=== PATIENT | female | born 1965 | race African-American/Black ===

== ENCOUNTER 2022-02-22 19:42 | Emergency (ER) | payer MEDICARE, SELFPAY ==
[2022-02-22] VITALS (7 sets, daily range): BP systolic 133–180; BP diastolic 66–90; PULSE 85–105; RESP 16–19; TEMP 36.4; O2SAT 97–100
--- NOTE | ~2022-02-22 | XR_ITS ---
EXAMINATION: XR chest 2V DATE: 02/22/2022 20:06 INDICATION: Chest pain, shortness of breath and bilateral upper extremity edema TECHNIQUE: PA and lateral views of the chest were obtained. COMPARISON: Chest radiograph dated 05/10/2014 FINDINGS: The lungs remain clear with no focal airspace opacities, pulmonary edema, pleural effusion or pneumot horax. The cardiomediastinal silhouette is normal. Mild thoracic and moderate upper lumbar spondylosi s. Cholecystectomy clips in right upper quadrant. IMPRESSION: 1. No acute cardiopulmonary disease. Reviewed, dictated and finalized at location A.
--- NOTE | 2022-02-22 19:46 | ECG_ITS ---
Measurements Intervals [place] Rate: 103 P: 42 WV: 172 QRS: 14 QRSD: 76 T: 0 QT: 333 QTc: 436 Interpretive Statements SINUS TACHYCARDIA NONSPECIFIC T-WAVE ABNORMALITY NO PREVIOUS ECG AVAILABLE FOR COMPARISON Electronically Signed On 02-23-2022 7:19:12 CDT by Froy Osorio M.D.
[2022-02-22 20:23] LABS: Basophils Percent Auto 0.3 % (0.2-1.2); Eosinophils Absolute Auto 0.1 K/mm3 (0-0.3); Eosinophils Percent Auto 1.6 % (0-4.4); Hematocrit 39.2 % (37.0-47.0); Hemoglobin 12.6 g/dL (12.0-15.0); Immature Granulocyte Absolute 0.02 K/mm3 (0.00-0.031); Immature Granulocyte Percent A 0.3 % (0-0.5); Lymphocytes Absolute Auto 2.09 K/mm3 (0.9-3.2); Lymphocytes Percent Auto 30.6 % (18.3-44.2); Mean Corpuscular HGB Conc 32.1 g/dl (32-36); Mean Corpuscular Volume 87.1 fl (80-100); Mean Platelet Volume 11.1 fl (7.4-10.4); Monocytes Absolute Auto 0.4 K/mm3 (0.1-0.6); Neutrophils Absolute Auto 4.2 K/mm3 (1.3-6.7); Neutrophils Percent Auto 61.2 % (45.5-73.1); Platelet Count Result 250 k/mm3 (150-375); White Blood Count 6.8 K/mm3 (4.5-10.0)
[2022-02-22 20:36] LABS: Alanine Aminotransferase 23 U/L (6-35); Albumin Level 4.1 g/dL (3.5-5.1); Alkaline Phosphatase 134 U/L (38-126); Anion Gap 12 mmol/L (8-16); Aspartate Amino Transferase 20 U/L (14-36); Bilirubin,Total 0.3 mg/dL (0.2-1.3); Blood Urea Nitrogen 17 mg/dL (7-17); Calcium 8.4 mg/dL (8.4-10.2); Carbon Dioxide 23 mmol/L (22-30); Chloride 105 mmol/L (98-107); Estimated CRCL calculation 65 ml/min; Estimated Glomerular Filt Rate > 60; Glucose 346 mg/dL (65-110); Potassium 3.8 mmol/L (3.4-5.0); Sodium 140 mmol/L (137-145)
[2022-02-22 21:10] LABS: Troponin I < 0.012 ng/mL (0.000-0.034)
--- NOTE | 2022-02-22 21:16 | ED.GENADULT ---
HPI - General Adult General Chief complaint: Shortness of Breath/Dyspnea Stated complaint: SOB, chest pain Time Seen by Provider: 02/22/22 20:37 History of Present Illness HPI narrative: this is a 56-year-old female presenting to ED with shortness of breath x2 months. Patient says she has been having progressively worse dyspnea on exertion. Patient walks several flights of stairs each day. typically she can do this without becoming winded but has been unable to for the last 2 months. Patient is also describing a sharp chest pain that is initially on the right but also extends to the left chest as well as the right flank. The pain comes and goes. She says this is similar to when she had a minor heart attack in 2018. Pain is exacerbated by moving. It is improved by lying down. Patient had 1 episode of vomiting several days ago. She has also been having non-bloody diarrhea. She denies fever or chills. She denies productive cough. She denies any sick contacts at home. Denies urinary symptoms. Related Data Allergies Allergy/AdvReac Type Severity Reaction Status Date / Time shrimp Allergy Anaphylaxis Verified 02/22/22 19:45 Review of Systems Review of Systems: CONSTITUTIONAL: Denies night sweats. EYES: No eye pain ENT: Denies rhinorrhea CARDIOVASCULAR: Denies palpitations RESPIRATORY: Denies hemoptysis GASTROINTESTINAL: Denies hematemesis GENITOURINARY: Denies hematuria. SKIN: Denies rash MUSCULOSKELETAL: Denies myalgia. NEUROLOGIC: Denies weakness. PSYCHIATRIC: Denies delusions PMFSH Past Medical History Medical History Diabetes Fibromyalgia HTN (hypertension) Social History Social History (Updated 02/22/22 @ 23:26 by Niraj Thomas MD) Social History: patient denies use of alcohol, cigarettes, or drugs. Exam Narrative: APPEARANCE: No apparent distress. She is polite and smiling during the interview Head atraumatic. EYES: PERRLA/EOMI, NOSE: Normal no drainage NECK: Supple, Trachea midline RESPIRATORY: CTAB, No increased work of breathing. CARDIOVASCULAR: S1S2 appreciated no peripheral edema, patient is has tenderness to palpation over the left chest wall and right rib cage. ABDOMINAL: Soft, nontender, nondistended, MUSCULOSKELETAl: No obvious deformities NEURO: Alert. Moving 4/4 extremities SKIN:: Warm, dry. Normal color PSYCHIATRIC: Normal affect Course Vital Signs Vital signs: Vital Signs Temperature 97.6 F 02/22/22 19:49 Pulse Rate 105 H 02/22/22 19:49 Respiratory Rate 16 02/22/22 19:49 Blood Pressure 133/87 02/22/22 19:49 Pulse Oximetry 100 02/22/22 19:49 Oxygen Delivery Room Air 02/22/22 19:49 Temperature 97.6 F 02/22/22 19:49 Pulse Rate 85 02/22/22 22:09 Respiratory Rate 17 02/22/22 22:09 Blood Pressure 148/72 H 02/22/22 22:09 Pulse Oximetry 97 02/22/22 22:09 Oxygen Delivery Room Air 02/22/22 20:54 Medical Decision Making MDM Narrative Medical decision making narrative: This is a 56-year-old female presenting ED with vague complaints of chest pain and dyspnea over 2 months chest pain workup including troponin, BNP and D-dimer have been ordered. EKG and chest x-ray have been ordered. EKG interpretation: Rhythm sinus tachycardia, Rate 103, [place] -[normal], [place] -[normal], QRS [narrow], QTC [normal], T waves -[negative for concerning inversions], ST Segments - [Negative for concerning elevations] Final interpretations: sinus tachycardia Patient's BNP D-dimer and troponin x2 were all negative. chest x-ray is negative. HEART Score for Major Cardiac Events from [email or web address] on 02/22/2022 All calculations should be rechecked by clinician prior to use RESULT SUMMARY: 3 points Low Score (0-3 points) Risk of MACE of 0.9-1.7%. INPUTS: History ?> 0 = Slightly suspicious EKG ?> 0 = Normal Age ?> 1 = 45-64 Risk factors ?> 2 = >= risk factors or history of athero
[2022-02-22 21:54] LABS: NT Pro B Type Natriuretic Pept 23 pg/mL (5-100)
[2022-02-22 21:59] LABS: D Dimer 0.26 ug/mL (<0.48)
[2022-02-22 22:19] LABS: SARS-CoV-2 RNA PCR Negative
[2022-02-22] MEDS: IBUPROFEN 400 MG TABLET 800 MG PO (22:32)
[2022-02-22] MEDS: ACETAMINOPHEN 500 MG TABLET 1000 MG PO (22:32)
[2022-02-22 23:16] LABS: Troponin I < 0.012 ng/mL (0.000-0.034)
== END 2022-02-22 23:59 | disposition home or self-care (01) ==
PROVIDERS: Emergency Provider Emergency Medicine
DX: R06.00 Dyspnea, unspecified (principal); E11.9 Type 2 diabetes mellitus without complications; I10 Essential (primary) hypertension; M79.7 Fibromyalgia; R00.0 Tachycardia, unspecified; R94.31 Abnormal electrocardiogram [ECG] [EKG]
CPT/HCPCS: 36415; 71046; 80053; 83880; 84484; 85025; 85380; 93005; 99284; A9270; C9803; U0003; U0005

== ENCOUNTER 2023-02-17 12:34 | Emergency (ER) | payer MEDICARE, SELFPAY ==
[2023-02-17] VITALS (36 sets, daily range): BP systolic 144–210; BP diastolic 80–114; PULSE 80–96; RESP 12–19; TEMP 35.9–36.6; O2SAT 90–100
--- NOTE | ~2023-02-17 | XR_ITS ---
EXAMINATION: XR chest 2V DATE: 02/17/2023 13:15 INDICATION: Chest pain. TECHNIQUE: Frontal and lateral views of the chest were obtained. COMPARISON: Chest 2 views 02/22/2022 FINDINGS: The chest demonstrates clear lungs without pneumonia, pleural effusion, or pneumothorax. Th e heart size is normal. IMPRESSION: 1. No acute cardiopulmonary disease. Reviewed, dictated and finalized at location A.
--- NOTE | ~2023-02-17 | CT_ITS ---
EXAMINATION: CT brain wo con DATE: 02/17/2023 19:07 INDICATION: dizziness . TECHNIQUE: Computed tomography (CT) of the head was performed without intravenous contrast. The mA wa s adjusted according to patient size. Iterative reconstruction technique was employed. The dose-lengt h product was 605.33 mGy-cm. COMPARISON: 03/08/2015. FINDINGS: No acute intracranial hemorrhage or extra-axial fluid collection. No hydrocephalus, mass, or herniation. No acute ischemic infarct. Unremarkable dural venous sinus attenuation. No acute osseous abnormality. The aerated spaces are clear. IMPRESSION: No acute intracranial process. Reviewed, dictated and finalized at location K.
--- NOTE | 2023-02-17 12:37 | ECG_ITS ---
Measurements Intervals [place] Rate: 91 P: 55 CO: 188 QRS: 31 QRSD: 76 T: 1 QT: 351 QTc: 433 Interpretive Statements SINUS RHYTHM POSSIBLE LEFT ATRIAL ENLARGEMENT CANNOT RULE OUT SEPTAL INFARCT, AGE INDETERMINATE BORDERLINE ST-T WAVE ABNORMALITY- ANTEROLAT/INF LEADS ABNORMAL ECG COMPARED TO ECG 02/22/2022 19:56:57 SINUS RHYTHM NOW PRESENT Electronically Signed On 02-17-2023 16:32:55 CDT by Brennan Daigle D.O.
[2023-02-17 12:59] LABS: Basophils Percent Auto 0.4 % (0.2-1.2); Eosinophils Absolute Auto 0.1 K/mm3 (0-0.3); Hematocrit 46.5 % (37.0-47.0); Hemoglobin 15.1 g/dL (12.0-15.0); Immature Granulocyte Absolute 0.03 K/mm3 (0.00-0.031); Immature Granulocyte Percent A 0.4 % (0-0.5); Lymphocytes Absolute Auto 2.26 K/mm3 (0.9-3.2); Lymphocytes Percent Auto 31.3 % (18.3-44.2); Mean Corpuscular HGB Conc 32.5 g/dl (32-36); Mean Corpuscular Volume 86.3 fl (80-100); Mean Platelet Volume 10.7 fl (7.4-10.4); Monocytes Absolute Auto 0.4 K/mm3 (0.1-0.6); Neutrophils Absolute Auto 4.4 K/mm3 (1.3-6.7); Neutrophils Percent Auto 60.9 % (45.5-73.1); Platelet Count Result 275 k/mm3 (150-375); Red Blood Count 5.39 M/mm3 (4.2-5.4); Red Cell Distribution Width 13.1 % (11.5-14.5); White Blood Count 7.2 K/mm3 (4.5-10.0)
[2023-02-17 13:10] LABS: INR 0.9; Prothrombin Time 12.1 Seconds (11.1-14.7)
[2023-02-17 13:11] LABS: Partial Thromboplastin Time 29.8 SECONDS (22.3-36.8)
[2023-02-17 13:13] LABS: Alanine Aminotransferase 34 U/L (6-35); Albumin Level 4.9 g/dL (3.5-5.1); Alkaline Phosphatase 116 U/L (38-126); Anion Gap 8 mmol/L (8-16); Aspartate Amino Transferase 25 U/L (14-36); Bilirubin,Total 0.6 mg/dL (0.2-1.3); Blood Urea Nitrogen 11 mg/dL (7-17); Calcium 9.7 mg/dL (8.4-10.2); Carbon Dioxide 29 mmol/L (22-30); Chloride 104 mmol/L (98-107); Estimated CRCL calculation 82 ml/min; Estimated Glomerular Filt Rate > 60; Glucose 162 mg/dL (65-110); Lipase 104 U/L (23-300); Potassium 3.8 mmol/L (3.4-5.0); Sodium 141 mmol/L (137-145)
[2023-02-17 13:24] LABS: Troponin I < 0.012 ng/mL (0.000-0.034)
[2023-02-17 15:44] LABS: Glucose Point of Care 155 mg/dl (65-105)
[2023-02-17 17:01] LABS: Troponin I < 0.012 ng/mL (0.000-0.034)
[2023-02-17] MEDS: SODIUM CHLORIDE 0.9% IV 1,000 ML 999 ML IV CONT (17:48)
[2023-02-17] MEDS: MECLIZINE HCL 25 MG TABLET PO (17:49)
[2023-02-17] MEDS: ONDANSETRON INJ 4 MG/2 ML VIAL IV PUSH (17:49)
[2023-02-17] MEDS: KETOROLAC 30 MG/ML VIAL (*BKC) IV PUSH (19:12)
[2023-02-17] MEDS: diazePAM INJ (*CRX) 10 MG/2 ML SYRINGE 5 MG IV PUSH (19:12)
[2023-02-17 19:17] LABS: Troponin I < 0.012 ng/mL (0.000-0.034)
--- NOTE | 2023-02-17 19:23 | ED.GENADULT ---
HPI - General Adult General Chief complaint: Chest Pain Stated complaint: DIZZINESS, CP Time Seen by Provider: 02/17/23 16:36 History of Present Illness HPI narrative: Patient is a 57-year-old female who presents ER with sudden onset dizziness. Began this morning. Has been constant. Spinning in nature. Associate with nausea and vomiting. No focal weakness or numbness in her arms or legs. Has not had this dizziness before. She reports the discomfort is a pressure just in her neck. No history of heart disease. No fevers chills or sweats. Has not found any alleviating factors for symptoms. Symptoms are worsened by turning her head and standing. Related Data Allergies Allergy/AdvReac Type Severity Reaction Status Date / Time metformin Allergy Nausea and Verified 02/17/23 12:35 Vomiting shrimp Allergy Anaphylaxis Verified 02/17/23 12:35 Review of Systems Review of Systems: All systems reviewed & are unremarkable except as noted in HPI and below Constitutional: Constitutional: Denies chills, Denies fatigue and Denies fever(s) Eyes: Eyes: Denies change in vision and Denies photophobia ENT: Reports dizziness, Denies nasal congestion and Denies sore throat Cardiovascular: Cardiovascular: Reports chest pain, Denies rapid heart rate and Reports radiating jaw, neck or arm pain Respiratory: Respiratory: Denies cough and Denies dyspnea Gastrointestinal: Gastrointestinal: Denies abdominal pain, Reports nausea and Reports vomiting Neurologic: Reports dizziness, Denies headache(s), Denies focal weakness and Denies numbness PMFSH Past Medical History Medical History Diabetes Fibromyalgia HTN (hypertension) Social History Social History (Updated 02/22/22 @ 23:26 by Niraj Thomas MD) Social History: patient denies use of alcohol, cigarettes, or drugs. Exam Narrative: GENERAL: Well-appearing, well-nourished, and in no acute distress. HEAD: Normocephalic, atraumatic. EYES: PERRL and right gaze nystagmus. ENT: Mucous membranes moist. Air-fluid levels behind right TM. CHEST: Clear to auscultation. No respiratory distress. HEART: Regular rate and rhythm. Normal peripheral pulses. ABDOMEN: Soft, nontender, nondistended. EXTREMITIES: Normal range of motion. No edema. SKIN: Warm, dry, no rash. NEURO: No slurred speech or facial droop. Normal strength in all extremities. Alert and oriented x3. PSYCH: Normal mood and affect. Course Course Emergency Course: Patient was very dizzy upon initial presentation. She received oral meclizine as well as IV fluid and IV Valium. She reports the dizziness is markedly improved. When she stands up and walks she still gets dizzy but not nearly to the same degree. She feels safe with discharge home with supportive medications for home. She has been informed of her lab and imaging results. Vital Signs Vital signs: Vital Signs Temperature 97.9 F 02/17/23 12:42 Pulse Rate 90 02/17/23 12:42 Respiratory Rate 16 02/17/23 12:42 Blood Pressure 181/85 H 02/17/23 12:42 Pulse Oximetry 100 02/17/23 12:42 Oxygen Delivery Room Air 02/17/23 12:42 Temperature 96.6 F L 02/17/23 15:57 Pulse Rate 88 02/17/23 19:15 Respiratory Rate 13 02/17/23 19:15 Blood Pressure 164/91 H 02/17/23 19:13 Pulse Oximetry 96 02/17/23 19:15 Oxygen Delivery Room Air 02/17/23 16:38 Medical Decision Making Vital Signs Vital Signs: Vital Signs Temperature 97.9 F 02/17/23 12:42 Pulse Rate 90 02/17/23 12:42 Respiratory Rate 16 02/17/23 12:42 Blood Pressure 181/85 H 02/17/23 12:42 Pulse Oximetry 100 02/17/23 12:42 Oxygen Delivery Room Air 02/17/23 12:42 Temperature 96.6 F L 02/17/23 15:57 Pulse Rate 88 02/17/23 19:15 Respiratory Rate 13 02/17/23 19:15 Blood Pressure 164/91 H 02/17/23 19:13 Pulse Oximetry 96 02/17/23 19:15 Oxygen Delivery Room Air 02/17/23 16:38
[2023-02-17 20:14] LABS: Appearance Urine Clear (Clear); Bilirubin Urine Negative (Negative); Blood Urine Negative (Negative); Color Urine Yellow (Yellow); Glucose Urine UA 3+ mg/dL (Negative); Ketones Urine 1+ mg/dL (Negative); Leukocyte Esterase Ur Negative LEU/UL (Negative); Nitrate Urine Negative (Negative); Protein Urine Negative (Negative); Urobilinogen Urine 0.2 mg/dL (<2.0); pH Urine 5.5 (5.0-9.0)
[2023-02-17 20:22] LABS: Specific Grav Ur 1.042 (1.001-1.035)
[2023-02-17 20:23] LABS: Add Urine Microscopic? YES
== END 2023-02-17 21:08 | disposition home or self-care (01) ==
PROVIDERS: Emergency Medicine; Emergency Provider Emergency Medicine; PCP Family Medicine
DX: R42 Dizziness and giddiness (principal); I10 Essential (primary) hypertension; E11.9 Type 2 diabetes mellitus without complications; M79.7 Fibromyalgia; R94.31 Abnormal electrocardiogram [ECG] [EKG]
CPT/HCPCS: 36415; 70450; 71046; 80053; 81001; 82948; 83690; 84484; 85025; 85610; 85730; 93005; 96361; 96374; 96375; 99284; A9270; J1885; J2405; J3360; J7030

== ENCOUNTER 2023-06-19 11:19 | Emergency (ER) | payer MEDICARE, SELFPAY ==
[2023-06-19] VITALS (16 sets, daily range): BP systolic 140–190; BP diastolic 67–98; PULSE 104–122; RESP 15–20; TEMP 36.7–36.8; O2SAT 91–98
--- NOTE | ~2023-06-19 | CT_ITS ---
EXAMINATION: CT abdomen pelvis w con DATE: 06/19/2023 14:31 INDICATION: Nausea, vomiting, and diarrhea. Upper abdominal pain. TECHNIQUE: Computed tomography (CT) of the abdomen and pelvis was performed with 100 mL Omnipaque 350 intravenous contrast. Automated exposure control and iterative reconstruction technique were employe d. The dose-length product was 523.95 mGy-cm. COMPARISON: CT abdomen and pelvis 07/07/2014 FINDINGS: The visualized portions of the lung bases demonstrate mild scarring in paraspinal right low er lobe. No pleural effusion. The heart size is normal. No pericardial effusion. There are cysts in t he liver measuring up to 2.3 cm. The spleen is normal. There are changes of cholecystectomy. The panc reas and adrenal glands are normal. There is cortical thinning of the kidneys. There is a 5 mm cyst i n left kidney. There is diverticulosis of the colon without evidence of diverticulitis. There are no dilated loops of bowel. The appendix is normal. There is an umbilical hernia containing fat. There ar e no pathologically enlarged lymph nodes. There is no free intraperitoneal fluid. There is mild thora cic and lumbar spondylosis. IMPRESSION: 1. Umbilical hernia containing fat. Reviewed, dictated and finalized at location A. [employer]
[2023-06-19 11:52] LABS: Glucose Point of Care 189 mg/dl (65-105)
[2023-06-19 11:56] LABS: Basophils Percent Auto 0.3 % (0.2-1.2); Eosinophils Percent Auto 0.3 % (0-4.4); Hematocrit 47.7 % (37.0-47.0); Hemoglobin 15.1 g/dL (12.0-15.0); Immature Granulocyte Absolute 0.05 K/mm3 (0.00-0.031); Immature Granulocyte Percent A 0.5 % (0-0.5); Lymphocytes Absolute Auto 0.59 K/mm3 (0.9-3.2); Lymphocytes Percent Auto 5.4 % (18.3-44.2); Mean Corpuscular HGB Conc 31.7 g/dl (32-36); Mean Corpuscular Volume 88.3 fl (80-100); Mean Platelet Volume 11.2 fl (7.4-10.4); Monocytes Absolute Auto 0.4 K/mm3 (0.1-0.6); Monocytes Percent Auto 3.4 % (2.6-8.5); Neutrophils Absolute Auto 9.8 K/mm3 (1.3-6.7); Neutrophils Percent Auto 90.1 % (45.5-73.1); Platelet Count Result 267 k/mm3 (150-375); White Blood Count 10.9 K/mm3 (4.5-10.0)
[2023-06-19 12:05] LABS: Alanine Aminotransferase 32 U/L (6-35); Albumin Level 4.9 g/dL (3.5-5.1); Alkaline Phosphatase 83 U/L (38-126); Anion Gap 17 mmol/L (8-16); Aspartate Amino Transferase 28 U/L (14-36); Bilirubin,Total 0.8 mg/dL (0.2-1.3); Blood Urea Nitrogen 18 mg/dL (7-17); Calcium 9.5 mg/dL (8.4-10.2); Carbon Dioxide 18 mmol/L (22-30); Chloride 104 mmol/L (98-107); Estimated CRCL calculation 93 ml/min; Estimated Glomerular Filt Rate > 60; Glucose 202 mg/dL (65-110); Lipase 75 U/L (23-300); Potassium 4.1 mmol/L (3.4-5.0); Sodium 139 mmol/L (137-145)
--- NOTE | 2023-06-19 14:02 | ED.NAVMDI ---
HPI - Nausea/Vomiting/Diarrhea General Chief complaint: Nausea/Vomiting/Diarrhea Stated complaint: N/V/D SINCE YESTERDAY Time Seen by Provider: 06/19/23 13:05 Source: patient Related Data Allergies Allergy/AdvReac Type Severity Reaction Status Date / Time metformin Allergy Nausea and Verified 02/17/23 12:35 Vomiting shrimp Allergy Anaphylaxis Verified 02/17/23 12:35 PMFSH Past Medical History Medical History Diabetes Fibromyalgia HTN (hypertension) Social History Social History (Updated 02/22/22 @ 23:26 by Niraj Thomas MD) Social History: patient denies use of alcohol, cigarettes, or drugs. Course Vital Signs Vital signs: Vital Signs Temperature 36.7 C 06/19/23 11:40 Pulse Rate 118 H 06/19/23 11:40 Respiratory Rate 20 06/19/23 11:40 Blood Pressure 150/82 H 06/19/23 11:40 Pulse Oximetry 97 06/19/23 11:40 Oxygen Delivery Room Air 06/19/23 11:40 Temperature 36.7 C 06/19/23 11:40 Pulse Rate 107 H 06/19/23 14:16 Respiratory Rate 19 06/19/23 14:16 Blood Pressure 181/77 H 06/19/23 14:16 Pulse Oximetry 95 06/19/23 14:16 Oxygen Delivery Room Air 06/19/23 11:40 MDM - Nausea/Vomiting/Diarrhea Lab Data 06/19/23 11:50 06/19/23 11:50 Labs: Lab Results 06/19/23 06/19/23 06/19/23 Range/Units 11:45 11:50 14:43 WBC 10.9 H (4.5-10.0) K/mm3 RBC 5.40 (4.2-5.4) M/mm3 Hgb 15.1 H (12.0-15.0) g/dL Hct 47.7 H (37.0-47.0) % MCV 88.3 (80-100) fl MCH 28.0 (26-34) pg MCHC 31.7 L (32-36) g/dl RDW 13.0 (11.5-14.5) % Plt Count 267 (150-375) k/mm3 MPV 11.2 H (7.4-10.4) fl Immature Gran % (Auto) 0.5 (0-0.5) % Neut % (Auto) 90.1 H (45.5-73.1) % Lymph % (Auto) 5.4 L (18.3-44.2) % [place] % (Auto) 3.4 (2.6-8.5) % Eos % (Auto) 0.3 (0-4.4) % Baso % (Auto) 0.3 (0.2-1.2) % Lymph # (Auto) 0.59 L (0.9-3.2) K/mm3 [place] # (Auto) 0.4 (0.1-0.6) K/mm3 Eos # (Auto) 0.0 (0-0.3) K/mm3 Baso # (Auto) 0.0 (0.0-0.1) K/mm3 Abs Immat Gran (auto) 0.05 H (0.00-0.031) K/mm3 Absolute Neuts (auto) 9.8 H (1.3-6.7) K/mm3 Absolute Nucleated RBC 0.0 (0.0-0.012) K/mm3 Nucleated RBC % 0.0 (0.0-0.2) % Sodium 139 (137-145) mmol/L Potassium 4.1 (3.4-5.0) mmol/L Chloride 104 (98-107) mmol/L Carbon Dioxide 18 L (22-30) mmol/L Anion Gap 17 H (8-16) mmol/L BUN 18 H (7-17) mg/dL Creatinine 0.60 L (0.7-1.0) mg/dL Estim Creat Clear Calc 93 ml/min Estimated GFR > 60 (59 - ) Glucose 202 H (65-110) mg/dL POC Capillary Glucose 189 H (65-105) mg/dl Calcium 9.5 (8.4-10.2) mg/dL Total Bilirubin 0.8 (0.2-1.3) mg/dL AST 28 (14-36) U/L ALT 32 (6-35) U/L Alkaline Phosphatase 83 (38-126) U/L Total Protein 9.0 H (6.3-8.2) g/dL Albumin 4.9 (3.5-5.1) g/dL Lipase 75 (23-300) U/L Urine Color Yellow (Yellow) Urine Appearance Clear (Clear) Urine pH 5.0 (5.0-9.0) Ur Specific [place] 1.048 H (1.001-1.035) Urine Protein 1+ H (Negative) mg/dL Urine Glucose (UA) 3+ H (Negative) mg/dL Urine Ketones 4+ H (Negative) mg/dL Ur Blood (Man) Negative (Negative) Urine Nitrate Negative (Negative) Urine Bilirubin Negative (Negative) Urine Urobilinogen 0.2 (<2.0) mg/dL Leukocyte Esterase Rfl Negative (Negative) MENDEZ/UL Urine RBC 0-2 (0-2) /hpf Urine WBC 0-5 /hpf Ur Squamous Epith Cells None seen (Few) /hpf Urine Bacteria None seen /hpf Urine Casts 0-2 Imaging Data Attestation: I personally reviewed and interpreted this imaging study as follows: Radiologist's impression: Impressions Abdomen/Pelvis CT 06/19/23 14:36 IMPRESSION: 1. Umbilical hernia containing fat. Critical Care Time Critical Care Time Critical Care Time: Yes Total Critical
[2023-06-19] MEDS: HYDROmorphone HCL INJ (*CRX) 1 MG/ML SYR 0.5 MG IV PUSH (14:40)
[2023-06-19] MEDS: ONDANSETRON INJ 4 MG/2 ML VIAL IV PUSH (14:40)
[2023-06-19] MEDS: SODIUM CHLORIDE 0.9% IV 1,000 ML 999 ML IV CONT (14:41)
[2023-06-19 14:59] LABS: Appearance Urine Clear (Clear); Bacteria Urine None Seen /hpf; Bilirubin Urine Negative (Negative); Blood Urine Negative (Negative); Color Urine Yellow (Yellow); Glucose Urine UA 3+ mg/dL (Negative); Ketones Urine 4+ mg/dL (Negative); Leukocyte Esterase Ur Negative LEU/UL (Negative); Nitrate Urine Negative (Negative); Non Pathogenic Casts 0-2; Protein Urine 1+ mg/dL (Negative); RBC Urine 0-2 /hpf (0-2); Squamous Epithelial Cell Urine None seen /hpf (Few); Urobilinogen Urine 0.2 mg/dL (<2.0); WBC Urine 0-5 /hpf
[2023-06-19 15:01] LABS: Add Urine Microscopic? YES; Specific Grav Ur 1.048 (1.001-1.035)
== END 2023-06-19 17:06 | disposition home or self-care (01) ==
PROVIDERS: Emergency Provider Emergency Medicine; PCP Family Medicine
DX: K42.9 Umbilical hernia without obstruction or gangrene (principal); R11.2 Nausea with vomiting, unspecified; R10.84 Generalized abdominal pain; I10 Essential (primary) hypertension; E11.9 Type 2 diabetes mellitus without complications; M79.7 Fibromyalgia
CPT/HCPCS: 36415; 74177; 80053; 81001; 82948; 83690; 85025; 96361; 96374; 96375; 99284; J1170; J2405; J7030; Q9967

== ENCOUNTER 2023-08-26 12:20 | Outpatient (CLI) | payer MEDICARE, SELFPAY ==
[2023-08-26 13:15] LABS: Anion Gap 9 mmol/L (8-16); Blood Urea Nitrogen 15 mg/dL (7-17); Calcium 9.4 mg/dL (8.4-10.2); Carbon Dioxide 27 mmol/L (22-30); Chloride 105 mmol/L (98-107); Estimated Glomerular Filt Rate > 60; Glucose 199 mg/dL (65-110); Potassium 3.6 mmol/L (3.4-5.0); Sodium 141 mmol/L (137-145)
== END 2023-08-26 12:21 | disposition home or self-care (01) ==
LOC: ANHSURGERY 12:23
PROVIDERS: Anesthesiology; PCP Emergency Medicine; Visit Provider Surgery
DX: E11.9 Type 2 diabetes mellitus without complications (principal)
CPT/HCPCS: 36415; 80048

== ENCOUNTER 2023-09-04 00:29 | Day surgery (SDC) | payer MEDICARE, SELFPAY ==
[2023-08-22 14:01] VITALS: BMI 30.7
--- NOTE | 2023-08-22 14:08 | PC.NURSE ---
Report to the Outpatient Waiting Room, entrance under the green pavilion located off [facility], at time 12:30 on date 09/04/23. Planned Procedure Time: 2:30. Time changes happen often and if your time is changed the preop area will call you the afternoon before. - You and your visitor will be asked to self-screen and do not enter if you have any COVID symptoms. - A mask is optional within the hospital at this time. Patients may have clear liquids (water, carbonated beverages, clear teas, apple juice) until 3 hours prior to surgery (11:30) with a maximum of 20 ounces. - No food from midnight until time of surgery Take the following medications with a SIP of water the morning of surgery: DULOXETINE DO NOT STOP ANY OF YOUR OTHER PRESCRIPTION MEDICATIONS PRIOR TO SURGERY ?EXCEPT THE FOLLOWING Medications to discontinue per physician: N/A Date to take last dose: N/A Please no make-up, nail swedish, hairspray, perfume, deodorant, or body powder the day of surgery. No jewelry (including any body piercings) or valuables the day of surgery, leave them at home. Please take a shower or bath the night before, or the morning of, surgery with an antibacterial soap. Wear comfortable, loose fitting clothing. - Jewelry must be removed prior to entering the operating room. Rings and piercings that are not removed may be cut off. - The hospital will not accept responsibility for valuables. - Please leave all valuables, including medications, at home the day of surgery. If you are going home after surgery, a licensed ems driver must drive you home. - NO public transportation without another adult if you receive anesthesia. - We recommend that an adult stay with you for 24 hours following discharge. - We also recommend that you do not drive, make important decision, drink alcoholic beverages, or take any drugs that were not prescribed by your health care provider for at least 24 hours after your discharge time. Follow any additional instructions given to you from your surgeon. If you or anyone in your household have experienced Covid symptoms in the past week, please notify your surgeon or the nurse liaison at the phone number below for possible testing. Telephone instructions given to PT - CYNDI CAGLE and asked if any additional questions and then verbalized understanding. Patient advised to call surgeon office or pre surgery nurse liaison [phone] if any additional questions.
--- NOTE | 2023-09-02 11:05 | PM.SD2 ---
Same Day Admit/Disch: HPI History of Present Illness Chief complaint: Umb Hernia 2cm Narrative: Cate Francois is a 58 year old female who has had an umbilical hernia for several years. Starting in April, the patient began noticing stabbing pain in the area of the umbilicus which would radiate to the left. This was pretty severe pain and would sometimes last 3-4 days. She also noticed some bloating and constipation. She went to the emergency room on 06/19/2023 with abdominal pain and bloating. She had a CT scan which showed an umbilical hernia containing fat. She was seen in the office and found to have a 2 cm umbilical hernia defect. After discussion, she is taken to surgery at this time for robotic laparoscopic umbilical hernia repair with mesh. She has a history of a stroke in 2016 with no residual defect. She also has a history of [id number] diabetes. She has a right upper quadrant scar from open cholecystectomy but otherwise no abdominal surgery previously. [facility] Past Medical History Medical History (Updated 09/04/23 @ 14:49 by Kanu Acosta MD) Diabetes Fibromyalgia HTN (hypertension) Stroke 2017 Surgical History Surgical History (Updated 09/02/23 @ 11:11 by Kanu Acosta MD) History of cholecystectomy Open cholecystectomy Family History Family History Other Cerebrovascular accident Diabetes mellitus Heart disease Hypertension Social History Social History Social History: patient denies use of alcohol, cigarettes, or drugs. Smoking status: Never smoker Alcohol intake: never Alcohol use details: socially Substance use: never Substance use type: does not use Living arrangements: with family Additional living arrangements comments: DAUGHTER Occupation/Education: other Additional occupation/education comments: disabled Spiritual care concerns: Yes (NO BLOOD PRODUCTS) Same Day Admit/Disch: Med Pre-admit Medications Home Medications Medication Instructions Recorded Confirmed Type dicyclomine 20 mg tablet 20 mg PO QID PRN abdominal pain 06/30/23 09/04/23 History dulaglutide 4.5 mg/0.5 mL 4.5 mg subcut WEEKLY 08/22/23 09/04/23 [facility] duloxetine 20 mg capsule,delayed 20 mg PO DAILY 08/22/23 09/04/23 History release sprinkle empagliflozin 25 mg tablet 25 mg PO DAILY 08/22/23 09/04/23 History (Jardiance) losartan 50 mg-hydrochlorothiazide 1 tablet PO DAILY 08/22/23 09/04/23 History 12.5 mg tablet ibuprofen 600 mg tablet 600 mg PO Q6H PRN pain #14 tabs 09/04/23 Rx oxycodone-acetaminophen 5 mg-325 1 - 2 tablet PO Q6H PRN pain #20 09/04/23 Rx mg tablet (Percocet) tabs Review of Systems Review of Systems All systems reviewed & are unremarkable except as noted in HPI and below (HPI) Exam Const: General: comfortable, no acute distress, alert and awake HENMT: Head: normocephalic and atraumatic Mouth: Yes Normal oral and palatal mucosa present Eyes: Conjunctivae: conjunctivae normal Pupils: Equal, round and reactive pupils present EOM: EOMs intact bilaterally Neck: Neck: normal visual inspection, no lymphadenopathy and nontender Resp: Effort & Inspection: normal respiratory effort Auscultation: clear to auscultation bilaterally Cardio: Rate: regular rate Rhythm: regular rhythm Heart sounds: no gallops, no murmurs and no rubs GI: Inspection: non-distended, scar (Right upper quadrant), visible herniation (Umbilical) and other (Diastasis linea alba) GI Palp: Yes Soft to palpation, No Tenderness to palpation present (GI), No Hepatomegaly present, No Splenomegaly present and Yes Hernia present umbilical < 3 cm (Only palpable with standing, bulges with cough) Auscultation: normal bowel sounds Skin: Lesions: no lesions Rashes: no rashes Neuro: General: no focal motor deficits and CN
[2023-09-04] VITALS (12 sets, daily range): BP systolic 119–161; BP diastolic 58–87; PULSE 76–91; RESP 12–18; TEMP 36.1–36.3; O2SAT 93–100; BMI 31.1
[2023-09-04 10:50] LABS: Glucose Point of Care 145 mg/dl (65-105)
[2023-09-04] MEDS: KETOROLAC 15 MG/ML VIAL (*BKC) IV PUSH (11:10)
[2023-09-04] MEDS: LACTATED RINGERS 1,000 ML 30 ML IV CONT ×2 (11:10→14:15)
[2023-09-04] MEDS: ACETAMINOPHEN 500 MG TABLET 1000 MG PO (11:10)
--- NOTE | 2023-09-04 11:29 | WPDHPUPDATE1 ---
History and Physical Update Update Date/Time: 09/04/23 11:29 History and Physical has been reviewed, including an updated exam of the patient. There are NO changes in the patient's condition. Risks, benefits, and alternatives have been discussed and questions answered. Patient agrees to proceed with procedure.
--- NOTE | 2023-09-04 11:35 | WPDANESEPPF ---
Anes - Initial Pre Proc Eval Procedure: Operation Date: 09/04/23 12:00 Proposed Procedures p Robotic Laparoscopic Umbilical Hernia Repair with Mesh - Kanu Acosta MD Date/Time: 09/04/23 11:35 Surgeon: Kanu Acosta MD Pre Op Diagnosis: Umb Hernia 2cm Patient Data Age: 58 Gender: F Height: 1.65 m Weight: 83.9 kg Last Vital Signs Temp 97 F L 09/04/23 11:25 Pulse 83 09/04/23 11:25 Resp 16 09/04/23 11:25 BP 141/80 H 09/04/23 11:25 Pulse Ox 100 09/04/23 11:25 O2 Del Method Room Air 09/04/23 11:25 Allergies Allergy/AdvReac Type Severity Reaction Status Date / Time Fish Containing Products Allergy Anaphylaxis Verified 09/04/23 11:24 metformin Allergy Nausea and Verified 09/04/23 11:24 Vomiting shrimp Allergy Anaphylaxis Verified 09/04/23 11:24 Home Medications Medication Instructions Recorded Confirmed Type dicyclomine 20 mg tablet 20 mg PO QID PRN abdominal pain 06/30/23 09/04/23 History dulaglutide 4.5 mg/0.5 mL 4.5 mg subcut WEEKLY 08/22/23 09/04/23 History subcutaneous pen injector (Trulicity) duloxetine 20 mg capsule,delayed 20 mg PO DAILY 08/22/23 09/04/23 History release sprinkle empagliflozin 25 mg tablet 25 mg PO DAILY 08/22/23 09/04/23 History (Jardiance) losartan 50 mg-hydrochlorothiazide 1 tablet PO DAILY 08/22/23 09/04/23 History 12.5 mg tablet Laboratory Tests 09/04/23 10:32 POC Capillary Glucose 145 H mg/dl (65-105) Patient hx anesthesia problems: none Family hx anesthesia problems: none Results Review: All pre-operative results and documents have been reviewed as part of the pre-operative evaluation. [facility] Past Medical History Medical History Diabetes Fibromyalgia HTN (hypertension) Stroke 2017 Surgical History Surgical History (Updated 09/02/23 @ 11:11 by Kanu Acosta MD) History of cholecystectomy Open cholecystectomy Family History Family History Other Cerebrovascular accident Diabetes mellitus Heart disease Hypertension Social History Social History Social History: patient denies use of alcohol, cigarettes, or drugs. Smoking status: Never smoker Alcohol intake: never Alcohol use details: socially Substance use: never Substance use type: does not use Living arrangements: with family Additional living arrangements comments: DAUGHTER Occupation/Education: other Additional occupation/education comments: disabled Spiritual care concerns: Yes (NO BLOOD PRODUCTS) Anes - Eval Final PreProcedure Day of Procedure 09/04/23 11:35 Patient weight: obese Heart: regular rate and rhythm Lungs: clear to auscultation Airway: Mallampati scale class II Neurological: alert and oriented Last oral intake: >/= 8 hours ASA classification: III Emergent: no Anesthetic plan: proceed Anesthesia type and monitoring: general GIVS and standard monitoring Results Review: All pre-operative results and documents have been reviewed as part of the pre-operative evaluation. Informed Consent: The patient's anesthetic plan and its attendant risks and benefits were discussed with the patient/family/POA. Questions were solicited and answers provided to the satisfaction of the patient/family/POA.
[2023-09-04] MEDS: SCOPOLAMINE 1 MG PATCH 1 PATCH TRANSDERM (11:51)
[2023-09-04] MEDS: ceFAZolin 2 GM/D5W 50 ML 2 GM/50 ML BAG IVPB (12:07)
[2023-09-04] MEDS: BUPIVACAINE/EPINEPHRINE 0.5% 10 ML VIAL 30 ML INFILTRATE (13:18)
--- NOTE | 2023-09-04 14:14 | W.PM.PROC2 ---
Procedure Note - Detailed Date of Procedure 09/04/23 Pre-op Diagnosis Umb Hernia 2cm Post-op Diagnosis Other (Umbilical hernia with 3 cm defect) Procedure Performed Robotic laparoscopic repair 3 cm umbilical hernia with mesh Surgeon Kanu Acosta MD Delivery Crew Member Darin LEACH Anesthesia General and Local Indications Patient has had periumbilical pain for several months. Although it was not easily palpable, she was found on CT scan to have an umbilical hernia. She is taken to surgery now for robotic laparoscopic repair with mesh. Findings She had 2 hernias in the umbilical area. The more cephalad hernia was a cm in diameter. There was a small fascial bridge between the 2 hernias. The larger defect was 2 cm in diameter making a total of 3 cm umbilical hernia. There was no bowel involvement. Description of Procedure The patient was taken to surgery and induced into general anesthesia. She was positioned so that her left slide was slightly elevated and the left arm was at the level of the table so that there was good access to the left flank for trocar placement. Prep and drape was carried out. Local was infiltrated just under the left costal margin. Incision was made in the varies needle was introduced. Insufflation was carried out until the abdomen was distended. We then switched out the varies needle and placed an applied Medical optical 5 mm trocar in the abdomen. Once this trocar and the camera were placed, the area of the umbilical hernia was reviewed. Under direct visualization, 2 robotic trocars were placed in the left flank but more caudal than the initial trocar. Finally the initial 5 mm optical trocar was switched out for another robotic 8 mm trocar. The robotic arms were then brought into the field and positioned appropriately. The camera was docked and targeted. The instrument arms were docked and the instruments placed in the vicinity of the umbilical hernia. The surgeon then broke scrub and went to the robotic console. Dissection of the umbilical hernia started with dissecting some of the fatty tissue associated with the falciform ligament and then proceeding inferiorly to reduce fatty tissue in each of the hernia defects described above. Care was taken not to injure the umbilical skin. Cautery was used for hemostasis. We then continued this dissection caudally taking the properitoneal fat in the midline down about half way to the pubis. We then looked again in the cephalad midline and dissected a bit more of the falciform ligament off the anterior abdominal wall. At this point, the 2 hernias were easily visualized and the repair could be again. An 0 V lock suture was introduced. This was used to close the 2 hernia defects in a cranial caudad direction securely closing both of the openings. The V lock was run back to the center of the hernia closure to secure the suture. A 10 x [address] hernia mesh was then rolled and placed in the abdomen. The 0 V lock suture was then passed through the middle of the mesh and the mesh was pushed up against the anterior abdominal wall with the long access of the mesh in the cephalad caudad direction. With the mesh fairly secure on the anterior abdominal wall, I used 2 0 V lock suture and started on the right lateral aspect of the mesh. A running suture was started and proceeded from the right midline of the mesh caudally to the longitudinal caudal midline. Similarly 3 other 2 0 V lock suture were placed suturing the mesh circumferentially to the anterior abdominal wall. The mesh was made secure and under adequate tension with the closure. There was extra suture on the 4th V lock and I used this to secure the lateral and central portion of the mesh to the anterior abdominal wall. All looked good. There was no evidence of bleeding or other complications. All of the needles that had been used in the repair and mesh placement were then retrieved. Sponge and needle counts were correct
[2023-09-04 14:32] LABS: Glucose Point of Care 172 mg/dl (65-105)
[2023-09-04] MEDS: fentaNYL CITRATE INJ (*CRX) 100 MCG/2 ML VIAL 25 MCG IV PUSH (14:54)
[2023-09-04] MEDS: ONDANSETRON INJ 4 MG/2 ML VIAL IV PUSH (16:11)
[2023-09-04] MEDS: oxyCODONE HCL (*CRX) 5 MG TAB IR PO (16:41)
== END 2023-09-04 17:25 | disposition home or self-care (01) ==
PROVIDERS: PCP Emergency Medicine; Visit Provider Surgery
PROC: (CPT 49593; principal; 2023-09-04 12:00)
DX: K42.9 Umbilical hernia without obstruction or gangrene (principal); E11.9 Type 2 diabetes mellitus without complications; I10 Essential (primary) hypertension; M79.7 Fibromyalgia; Z86.73 Personal history of transient ischemic attack (TIA), and cerebral infarction without residual deficits; Z79.84 Long term (current) use of oral hypoglycemic drugs; Z79.85 Long-term (current) use of injectable non-insulin antidiabetic drugs
CPT/HCPCS: 49593; S2900; 82948; A9270; C1781; J0690; J1100; J1170; J1885; J2250; J2405; J3010; J7120

== ENCOUNTER 2024-03-21 10:22 | Observation (INO) | payer MEDICARE, SELFPAY ==
[2024-03-21] VITALS (40 sets, daily range): BP systolic 133–166; BP diastolic 65–98; PULSE 79–94; RESP 13–24; TEMP 36.4–36.6; O2SAT 96–100; BMI 29.9
--- NOTE | ~2024-03-21 | NM_ITS ---
EXAMINATION: NM carol stress w perfusion DATE: 03/23/2024 12:03 CDT INDICATION: Chest pain TECHNIQUE: Rest images were obtained following intravenous administration of 9.9 mCi Tc99m tetrofosmi n (Myoview). The patient was infused intravenously with Lexiscan (regadenoson). Then, 33 mCi Tc99m te trofosmin (Myoview) was administered intravenously, and stress images were obtained. Data was reconst ructed into short axis and horizontal and vertical long axis SPECT images. Gated SPECT images were al so obtained. COMPARISON: None. FINDINGS: There is no definite reversible or fixed perfusion abnormality to suggest ischemia or infar ction. There is no segmental wall motion abnormality. Left ventricular ejection fraction measures 7 1%. IMPRESSION: 1. No definite ischemia or infarct. 2. Normal left ventricular ejection fraction measuring 71%. Reviewed, dictated and finalized at location B.
--- NOTE | ~2024-03-21 | XR_ITS ---
Clinical Indication: Chest pain PA and lateral views of the chest: Comparison: 02/17/2023 Findings: The lungs are clear, without evidence of focal consolidation or pleural effusion. Cardiome diastinal silhouette is within normal limits. Bones and soft tissues are unremarkable. Impression: Normal chest. Reviewed, dictated and finalized at location . Impression: Normal chest.
--- NOTE | ~2024-03-21 | US_ITS ---
EXAMINATION:US venous doppler LE BI INDICATION:Lower leg swelling TECHNIQUE: Multiple grayscale, color flow and Doppler images of the right and left lower extremity de ep venous systems were obtained and reviewed. COMPARISON:12/16/2014 FINDINGS: The common femoral, superficial femoral and popliteal veins demonstrate normal respiratory variation, augmentation and compressibility. Color flow is also seen within the posterior tibial, pe roneal, greater saphenous and profunda veins. IMPRESSION: 1: No lower extremity deep venous thrombosis. Reviewed, dictated and finalized at location B.
--- NOTE | ~2024-03-21 | CT_ITS ---
Clinical Indication: Shortness of breath CT Scan of the Chest with Contrast: Technique: Contiguous sections were acquired throughout the chest after intravenous administration of 100 cc of Omnipaque 350. Dose reduction technique was used on this scan by utilizing automated expos ure control and iterative reconstruction technique. The dose-length product (DLP) was 484.07 mGy-cm. Findings: There is no evidence of any significant mediastinal, hilar or axillary lymphadenopathy. There is no f illing defect in the pulmonary arterial tree to suggest pulmonary embolus. There is no evidence of ao rtic dissection or aneurysm. There is no evidence of pleural or pericardial effusion. The lungs are clear. No pulmonary nodules or infiltrates are noted. Images through the upper abdomen reveal no abnormalities. Impression: No evidence of pulmonary embolus, aortic dissection, or aortic aneurysm. Clear lungs. Reviewed, dictated and finalized at [facility]. Impression: No evidence of pulmonary embolus, aortic dissection, or aortic aneurysm. Clear lungs.
--- NOTE | 2024-03-21 10:25 | ECG_ITS ---
Test Date: 2024-03-21 10:46:39 Measurements Intervals [place] Rate: 86 P: 49 AK: 181 QRS: 15 QRSD: 84 T: -29 QT: 372 QTc: 447 Interpretive Statements SINUS RHYTHM POSSIBLE LEFT ATRIAL ENLARGEMENT LOW QRS VOLTAGE IN PRECORDIAL LEADS CONSIDER INFERIOR INFARCT, AGE INDETERMINATE BORDERLINE ST-T WAVE ABNORMALITY- ANTEROLAT/INF LEADS BASELINE ARTIFACT- I, II, AVR, AVL, AVF BORDERLINE ECG No previous ECG available for comparison Electronically Signed On 03-21-2024 11:19:39 CDT by Brennan Daigle D.O.
[2024-03-21 10:54] LABS: Basophils Percent Auto 0.4 % (0.2-1.2); Eosinophils Absolute Auto 0.1 K/mm3 (0-0.3); Eosinophils Percent Auto 1.3 % (0-4.4); Hematocrit 40.1 % (37.0-47.0); Hemoglobin 13.3 g/dL (12.0-15.0); Immature Granulocyte Absolute 0.02 K/mm3 (0.00-0.031); Immature Granulocyte Percent A 0.3 % (0-0.5); Lymphocytes Absolute Auto 2.28 K/mm3 (0.9-3.2); Lymphocytes Percent Auto 30.4 % (18.3-44.2); Mean Corpuscular HGB Conc 33.2 g/dl (32-36); Mean Corpuscular Hemoglobin 28.9 pg (26-34); Mean Corpuscular Volume 87.2 fl (80-100); Mean Platelet Volume 11.1 fl (7.4-10.4); Monocytes Absolute Auto 0.5 K/mm3 (0.1-0.6); Monocytes Percent Auto 6.3 % (2.6-8.5); Neutrophils Absolute Auto 4.6 K/mm3 (1.3-6.7); Neutrophils Percent Auto 61.3 % (45.5-73.1); Platelet Count Result 253 k/mm3 (150-375); Red Cell Distribution Width 13.3 % (11.5-14.5); White Blood Count 7.5 K/mm3 (4.5-10.0)
[2024-03-21 11:03] LABS: Alanine Aminotransferase 18 U/L (6-35); Albumin Level 4.2 g/dL (3.5-5.1); Alkaline Phosphatase 128 U/L (38-126); Anion Gap 10 mmol/L (4-12); Aspartate Amino Transferase 18 U/L (14-36); Bilirubin,Total 0.5 mg/dL (0.2-1.3); Blood Urea Nitrogen 18 mg/dL (7-17); Calcium 9.2 mg/dL (8.4-10.2); Carbon Dioxide 25 mmol/L (22-30); Chloride 104 mmol/L (98-107); Estimated CRCL calculation 71 ml/min; Estimated Glomerular Filt Rate > 60; Glucose 188 mg/dL (65-110); Lipase 111 U/L (23-300); Potassium 3.9 mmol/L (3.4-5.0); Sodium 139 mmol/L (137-145)
[2024-03-21 11:05] LABS: INR 0.9; Prothrombin Time 12.1 Seconds (11.1-14.7)
[2024-03-21 11:06] LABS: Partial Thromboplastin Time 28.6 Seconds (22.3-36.8)
[2024-03-21 11:15] LABS: Troponin I < 0.012 ng/mL (0.000-0.034)
--- NOTE | 2024-03-21 12:06 | ED.CHESTPAIN ---
HPI - Chest Pain General Chief Complaint: Chest Pain Stated Complaint: chest pain Time Seen by Provider: 03/21/24 12:05 Source: patient Mode of arrival: ambulatory Limitations: no limitations History of Present Illness HPI narrative: 58 years old female came to the ED complaining of chest pain for the last 2 weeks, gradually getting worse, mainly last night and this morning. Patient was not able to get out of bed because of the pain 10/10, worse with any exertion, nothing make it better. History of diabetes, hypertension on baby aspirin once a day when she remember. Her mother had history of heart attack, her brother had a sudden probably secondary to heart attack. Patient does not smoke or drink or use drugs. Related Data Home Medications Medication Instructions Recorded Confirmed dicyclomine 20 mg tablet 20 mg PO QID PRN abdominal pain 06/30/23 10/29/23 duloxetine 20 mg capsule,delayed 20 mg PO DAILY 08/22/23 10/29/23 release sprinkle empagliflozin 25 mg tablet 25 mg PO DAILY 08/22/23 10/29/23 (Jardiance) losartan 50 mg-hydrochlorothiazide 1 tablet PO DAILY 08/22/23 10/29/23 12.5 mg tablet tirzepatide 2.5 mg/0.5 mL 2.5 mg subcut WEEKLY 09/18/23 10/29/23 subcutaneous pen injector (Cait) Allergies Allergy/AdvReac Type Severity Reaction Status Date / Time Fish Containing Products Allergy Anaphylaxis Verified 03/21/24 12:14 metformin Allergy Nausea and Verified 03/21/24 12:14 Vomiting shrimp Allergy Anaphylaxis Verified 03/21/24 12:14 Review of Systems Review of Systems: All systems reviewed & are unremarkable except as noted in HPI and below PMFSH Past Medical History Medical History Diabetes Fibromyalgia HTN (hypertension) Stroke 2017 Surgical History Surgical History History of cholecystectomy Open cholecystectomy History of umbilical hernia repair Robotic laparoscopic repair 3 cm umbilical hernia with mesh 09/04/23 JESUS Family History Family History Other Cerebrovascular accident Diabetes mellitus Heart disease Hypertension Social History Social History Social History: patient denies use of alcohol, cigarettes, or drugs. Smoking status: Never smoker Alcohol intake: never Alcohol use details: socially Substance use: never Substance use type: does not use Living arrangements: with family Additional living arrangements comments: DAUGHTER Occupation/Education: other Additional occupation/education comments: disabled Spiritual care concerns: Yes (NO BLOOD PRODUCTS) Exam Narrative: General appearance: Well-developed, well-nourished Skin: Normal color Head: Normocephalic, nontraumatic Eyes: Clear conjunctiva ENT: Oropharynx normal, ears normal, nose normal Neck: Supple, nontender Chest and respiratory: Airway patent, no respiratory distress, no accessory muscle use severe tenderness left sternum with light palpation, no bruises or swelling or rash Heart: Regular rate/rhythm Abdomen: Soft, nontender, no organomegaly, quiet bowel sounds Vascular: Normal peripheral pulses, normal capillary refill. Musculoskeletal: Normal range of motion, nontender back Neurologic: Alert and oriented ?3, BOX BUILDER is normal as tested, no gross motor deficit Course Consultations Consultation #1: DR NEAL SWARTZ [facility] ON-CALL ACCEPTED CONSULT Date: 03/21/24 Time: 15:48 Vital Signs Vital signs: Vital Signs Temperature 36.6 C 03/21/24 10:28 Pu
[2024-03-21 14:12] LABS: Troponin I < 0.012 ng/mL (0.000-0.034)
--- NOTE | 2024-03-21 15:16 | ECG_ITS ---
Test Date: 2024-03-21 15:21:50 Measurements Intervals [place] Rate: 77 P: 34 NE: 185 QRS: 2 QRSD: 81 T: -22 QT: 371 QTc: 422 Interpretive Statements SINUS RHYTHM DELAYED PRECORDIAL R/S TRANSITION LOW QRS VOLTAGE IN PRECORDIAL LEADS BORDERLINE ST-T WAVE ABNORMALITY- ANTEROLAT/INF LEADS BASELINE ARTIFACT- I, II, AVR BORDERLINE ECG Compared to ECG 03/21/2024 10:46:39 NO SIGNIFICANT CHANGE Electronically Signed On 03-21-2024 20:07:49 CDT by Brennan Daigle D.O.
[2024-03-21] MEDS: ASPIRIN 81 MG CHEWABLE TABLET 324 MG PO (15:35)
--- NOTE | 2024-03-21 16:10 | PM.IMHP ---
H&P: HPI History of Present Illness Date/Time: 03/21/24 16:10 Chief Complaint: Chest pain. Narrative: This is a very pleasant 58-year-old female with hypertension, type 2 diabetes mellitus, and fibromyalgia who presented to the emergency department for evaluation of chest pain. The patient provides the following history. She reports intermittent chest pain for the last couple of weeks which was worse this morning. She has been having quite a bit of musculoskeletal pain which she attributes to her fibromyalgia the last several weeks. 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 The pain is difficult for her to describe but she is able to tell me that she has sharp stabbing pain in the anterior chest at times with inspiration. She has also been getting short of breath. Last week she was in [place] and the symptoms were present then as well but not prior to the flight. She denies lightheadedness, dizziness, syncope, near syncope, sweats, nausea, calf pain, and lower extremity edema. In the ED: Vital signs were stable on arrival. CMP and CBC were pretty unremarkable aside from a glucose of 188. Baseline troponin was less than 0.012. EKG showed sinus rhythm and borderline ST T-wave abnormalities Chest x-ray showed a normal chest. She was given aspirin 324 mg and is being admitted to the IMU in the setting for close monitoring and Cardiology consultation given her risk factors and family history for sudden presumed cardiac in her brother. Review of Systems Review of Systems: 12 systems were reviewed and are negative except for as per HPI. [facility] Past Medical History Medical History (Updated 03/21/24 @ 16:14 by Liz Armstrong PA-C) Fibromyalgia Hypertension Stroke Brain CT in January 2023 showed no evidence of prior infarct. Type 2 diabetes mellitus Surgical History Surgical History (Updated 03/21/24 @ 16:14 by Liz Armstrong PA-C) History of cholecystectomy Open cholecystectomy History of tubal ligation History of umbilical hernia repair Robotic laparoscopic repair 3 cm umbilical hernia with mesh 09/04/23 JESUS Family History Family History Other Cerebrovascular accident Diabetes mellitus Heart disease Hypertension Social History Social History (Updated 03/21/24 @ 23:51 by Liz Armstrong PA-C) Social History: Surrogate medical decision maker: Jagruti Powers, sibling. Code status: Full code. Smoking status: Never smoker Alcohol intake: current Substance use: never Substance use type: does not use Do You Feel Safe in your Home?: Yes Lack of Transportation: No Lack of Food: Never True Current Housing: I Have Housing Concerned About Future Housing: YES Difficulty Paying Gas/Electric Bills: No Difficulty Paying for Meds: No Currently Unemployed: No Education: High School Diploma/GED Difficulty w/ Childcare or Family Care: No Living arrangements: with family Occupation/Education: other Additional occupation/education comments: On disability. Spiritual care concerns: No Meds Home Medications and Allergies Home Medications Medication Instructions Recorded Confirmed Type duloxetine 20 mg capsule,delayed 60 mg PO DAILY 08/22/23 03/21/24 History release sprinkle empagliflozin 25 mg tablet 25 mg PO DAILY 08/22/23 03/21/24 History (Jardiance) losartan 50 mg-hydrochlorothiazide 1 tablet PO DAILY 08/22/23 03/21/24 History 12.5 mg tablet tirzepatide 2.5 mg/0.5 mL 2.5 mg subcut WEEKLY 09/18/23 03/21/24 History subcutaneous pen injector (Mounjaro) pregabalin 150 mg capsule 150 mg PO BID 03/21/24 03/21/24 History Allergies Allergy/AdvReac Type Severity Reaction Status Date / Time Fish Containing Products Allergy Anaphylaxis Verified
[2024-03-21 16:34] LABS: INR 0.9; Prothrombin Time 12.4 Seconds (11.1-14.7)
[2024-03-21 16:39] LABS: Troponin I < 0.012 ng/mL (0.000-0.034)
[2024-03-21 20:30] LABS: Glucose Point of Care 169 mg/dl (65-105)
[2024-03-21] MEDS: METOPROLOL TARTRATE TAB 25 MG, METOPROLOL TARTRATE TAB 12.5 MG 37.5 MG PO (21:21)
[2024-03-21] MEDS: polyethylene glycoL 3350 17 GM POWD.PACK PO (22:21)
[2024-03-22] VITALS (16 sets, daily range): BP systolic 126–155; BP diastolic 59–75; PULSE 70–89; RESP 16–20; TEMP 36.4–36.8; O2SAT 97–100
[2024-03-22 04:21] LABS: Anion Gap 8 mmol/L (4-12); Blood Urea Nitrogen 16 mg/dL (7-17); Calcium 9.2 mg/dL (8.4-10.2); Carbon Dioxide 27 mmol/L (22-30); Chloride 104 mmol/L (98-107); Cholesterol 107 mg/dL (0-200); Estimated CRCL calculation 79 ml/min; Estimated Glomerular Filt Rate > 60; Glucose 150 mg/dL (65-110); HDL Direct 43 mg/dL; Potassium 3.3 mmol/L (3.4-5.0); Sodium 139 mmol/L (137-145); Triglycerides 65 mg/dL (<150)
[2024-03-22 04:24] LABS: Hemoglobin A1C 7.2 % (<5.7)
[2024-03-22 04:32] LABS: LDL Cholesterol Direct 49 mg/dL
[2024-03-22 07:32] LABS: Glucose Point of Care 161 mg/dl (65-105)
[2024-03-22] MEDS: DULoxetine HCL 60 MG CAPSULE.DR PO (08:41)
[2024-03-22] MEDS: PREGABALIN (*CRX) 75 MG CAPSULE 150 MG PO ×2 (08:41→16:54)
[2024-03-22] MEDS: ACETAMINOPHEN 325 MG TABLET 650 MG PO ×2 (08:41→21:00)
[2024-03-22] MEDS: EMPAGLIFLOZIN 25 MG TABLET PO (08:41)
[2024-03-22] MEDS: METOPROLOL TARTRATE TAB 25 MG, METOPROLOL TARTRATE TAB 12.5 MG 37.5 MG PO ×2 (08:41→20:58)
[2024-03-22] MEDS: hydroCHLOROthiazide 12.5 MG CAPSULE PO (08:41)
[2024-03-22] MEDS: LOSARTAN POTASSIUM 50 MG TABLET PO (08:41)
[2024-03-22] MEDS: ASPIRIN 81 MG CHEWABLE TABLET PO (08:41)
[2024-03-22] MEDS: POTASSIUM CHLORIDE 20 MEQ ER TABLET 40 MEQ PO (09:19)
--- NOTE | 2024-03-22 09:34 | PM.CNCAR ---
Assessment and Plan Assessment and plan (1) Chest pain: Code(s): R07.9 - Chest pain, unspecified Status: Acute Plan Atypical chest pain with negative cardiac enzymes and no dynamic EKG changes Hypertension Diabetes mellitus type 2 Plan Stress test in a.m. Continue losartan and hydrochlorothiazide Aspirin 81 mg daily History of Present Illness History of Present Illness Consult date/time: 03/22/24 09:34 Reason For Visit: Chest Pain Narrative: 58-year-old female patient presents to the hospital with chest pain. Chest pain was right-sided there is into right shoulder right arm. It has been present for last 2 weeks. Pain would last for hours to a full day. There was no precipitating or relieving factors. Review of Systems Review of Systems: All systems reviewed & are unremarkable except as noted in HPI and below PMFSH Past Medical History Medical History (Updated 03/21/24 @ 16:14 by Liz Armstrong PA-C) Fibromyalgia Hypertension Stroke Brain CT in January 2023 showed no evidence of prior infarct. Type 2 diabetes mellitus Surgical History Surgical History (Updated 03/21/24 @ 16:14 by Liz Armstrong PA-C) History of cholecystectomy Open cholecystectomy History of tubal ligation History of umbilical hernia repair Robotic laparoscopic repair 3 cm umbilical hernia with mesh 09/04/23 JESUS Family History Family History Other Cerebrovascular accident Diabetes mellitus Heart disease Hypertension Social History Social History (Updated 03/21/24 @ 23:51 by Liz Armstrong PA-C) Social History: Surrogate medical decision maker: Jagrutira Powers, sibling. Code status: Full code. Smoking status: Never smoker Alcohol intake: current Substance use: never Substance use type: does not use Do You Feel Safe in your Home?: Yes Lack of Transportation: No Lack of Food: Never True Current Housing: I Have Housing Concerned About Future Housing: YES Difficulty Paying Gas/Electric Bills: No Difficulty Paying for Meds: No Currently Unemployed: No Education: High School Diploma/GED Difficulty w/ Childcare or Family Care: No Living arrangements: with family Occupation/Education: other Additional occupation/education comments: On disability. Spiritual care concerns: No Meds Home Medications and Allergies Home Medications Medication Instructions Recorded Confirmed Type duloxetine 20 mg capsule,delayed 60 mg PO DAILY 08/22/23 03/21/24 History release sprinkle empagliflozin 25 mg tablet 25 mg PO DAILY 08/22/23 03/21/24 History (Jardiance) losartan 50 mg-hydrochlorothiazide 1 tablet PO DAILY 08/22/23 03/21/24 History 12.5 mg tablet tirzepatide 2.5 mg/0.5 mL 2.5 mg subcut WEEKLY 09/18/23 03/21/24 History subcutaneous pen injector (Cait) pregabalin 150 mg capsule 150 mg PO BID 03/21/24 03/21/24 History Allergies Allergy/AdvReac Type Severity Reaction Status Date / Time Fish Containing Products Allergy Anaphylaxis Verified 03/21/24 12:14 metformin Allergy Nausea and Verified 03/21/24 12:14 Vomiting shrimp Allergy Anaphylaxis Verified 03/21/24 12:14 Vital Signs Vital Signs - 24 hr 03/21/24 10:28 03/21/24 12:15 03/21/24 12:16 Temperature 36.6 C Pulse Rate 89 86 Respiratory Rate 18 Blood Pressure 149/71 H Pulse Oximetry 99 100 Oxygen Delivery Room Air Room Air 03/21/24 13:17 03/21/24 15:37 03/21/24 11:29 Temperature Pulse Rate 86 87 88 Respiratory Rate 15 18 23 H Blood Pressure 146/65 H 149/98 H Pulse Oximetry 100 100 100 Oxygen Delivery 03/21/24 11:30 03/21/24 11:35 03/21/24 11:45 Temperature Pulse Rate 87 87 87 Respiratory Rate 24 H 23 H 24 H Blood Pressure 166/82 H Pulse Oximetry 100 100 100 Oxygen Delivery 03/21/24 11:46 03/21/24 12:12 03/21/24 12:15 Temperature Pulse Rate 85 86 85 R
[2024-03-22 11:49] LABS: Glucose Point of Care 130 mg/dl (65-105)
--- NOTE | 2024-03-22 11:54 | PM.IMPN ---
Progress Note: A&P Assessment and Plan (1) Chest pain: Code(s): R07.9 - Chest pain, unspecified Status: Acute Assessment and Plan: Cardiology consult order. Patient scheduled for stress test in the morning. (2) Type 2 diabetes mellitus: Code(s): E11.9 - Type 2 diabetes mellitus without complications Status: Acute Assessment and Plan: Stable on current medications, will continue current treatment. (3) Hypertension: Code(s): I10 - Essential (primary) hypertension Status: Acute Assessment and Plan: Stable on current medications, will continue current treatment. (4) Fibromyalgia: Code(s): M79.7 - Fibromyalgia Status: Acute Assessment and Plan: Stable on current medications, will continue current. Plan The patient presented to the emergency department for evaluation of intermittent chest pain over the past 2 weeks as detailed in HPI. Labs, imaging, EKG, and all reports were personally reviewed. Initial troponin was normal however her EKG did show some nonspecific ST segment changes. She has a reproducible pain on palpation of the chest wall and this is likely musculoskeletal in etiology however given her risk factors and family history she would benefit from a stress test, possibly as an outpatient. She did recently travel and describes intermittent pleuritic pain shortness a breath thus chest CTA has been ordered to rule out PE which seems a bit less likely. Troponins will be trended. Cardiology has been consulted for their input. Blood pressures are reasonable and will be monitored. Initiate sliding scale insulin, Accu-Cheks, and hypoglycemic protocol. Her home medications will be reviewed and resumed as appropriate. Findings and treatment plan were discussed with the patient. Questions were solicited and answered to satisfaction. The patient's medical management will be taken over by the hospitalist team in a.m. Subjective Date/time seen: 03/22/24 11:54 Interval history: Patient was seen during the morning rounds today. Patient is feeling better. No shortness of breath or chest pain. Mood stable. Review of Systems Review of Systems: 12 systems were reviewed and are negative except for as per HPI. Exam Narrative: General: Well-developed, nontoxic-appearing female sitting up in bed in no distress. Weight: 81.6 kg. BMI: 29.9. HEENT: PERRL, EOMI. Sclera anicteric. Oral mucosa moist. Oropharynx clear. Neck: Supple. Respiratory: Lungs are clear to auscultation bilaterally. Cardiovascular: Regular rate and rhythm with S1-S2. Chest: Reproducible tenderness to palpation over the chest wall, more so on the left. Gastrointestinal: Abdomen is soft, nontender, and nondistended with positive bowel sounds. Skin: Warm and dry. No rash or lesions on limited exam. Extremities: No cyanosis, clubbing, or edema. Radial and pedal pulses intact. Neurological: Alert. Cranial nerves 2-12 are grossly intact. No gross focal deficits to casual conversation. Psychiatric: Pleasant and cooperative with normal mood and affect. Judgment and insight intact. Objective Data Vital Signs Vital Signs: Vital Signs - 24 hr 03/21/24 12:15 03/21/24 12:16 03/21/24 13:17 Temperature Pulse Rate 86 86 Respiratory Rate 15 Blood Pressure 146/65 H Pulse Oximetry 100 100 Oxygen Delivery Room Air 03/21/24 15:37 03/21/24 12:12 03/21/24 12:15 Temperature Pulse Rate 87 86 85 Respiratory Rate 18 21 H 20 Blood Pressure 149/98 H Pulse Oximetry 100 100 100 Oxygen Delivery 03/21/24 12:16 03/21/24 12:30 03/21/24 12:31 Temperature Pulse Rate 83 86 89 Respiratory Rate 21 H 22 H 22 H Blood Pressure 150/72 H 142/68 H Pulse Oximetry 100 100 100 Oxygen Delivery 03/21/24 12:45 03/21/24 13:02 03/21/24 13:15 Temperature Pulse Rate 86 88 86 Respiratory Rate 21 H 18 18 Blood Pressure Pulse Oximetry 100 Oxygen Delivery
[2024-03-22 16:29] LABS: Glucose Point of Care 159 mg/dl (65-105)
[2024-03-22 21:03] LABS: Glucose Point of Care 207 mg/dl (65-105)
[2024-03-22] MEDS: INSULIN ASPART (*BKC) 100 UNITS/ML SUB-Q (21:11)
[2024-03-22] MEDS: polyethylene glycoL 3350 17 GM POWD.PACK PO (23:30)
[2024-03-23] VITALS (10 sets, daily range): BP systolic 132–143; BP diastolic 63–72; PULSE 75–88; RESP 14–20; TEMP 36.4–36.6; O2SAT 96–100
--- NOTE | 2024-03-23 | EST_ITS ---
Patient Info Name: Cate Francois Age: 58 years : 1965 Gender: Female Ht: 65 in Wt: 186 lbs BSA: 2.00 m2 HR: 78 bpm BP: 134 / 77 mmHg Exam Date: 03/23/2024 10:31 AM Exam Location: Echo Lab Patient Status: Inpatient Admit Date: 03/21/2024 Staff Ordering Physician: Patrick Stark MD Attending Provider: Miguel A Macias MD Exercise Technologist: Carito Cedeño, CT Nurse: Nu Devries APN Exam Type: CA stress carol w NM Study Info A regadenoson stress test was performed. Summary 1. No abnormal ST/T wave changes diagnostic of ischemia. 2. Please correlate with nuclear medicine images, reported separately. 3. Stress test supervised by Nu Devries NP. Stress test interpreted by Elham Pereyra MD. Protocol: Lexiscan Stress ECG Details Stage: REST Duration (min): 2 min : 59 sec HR (bpm): 72 SBP (mmHg): 134 DBP (mmHg): 77 Stage: REST Duration (min): 5 min : 4 sec HR (bpm): 74 SBP (mmHg): 134 DBP (mmHg): 77 Stage: STAGE 1 Duration (min): 0 min : 59 sec HR (bpm): 92 SBP (mmHg): 144 DBP (mmHg): 86 Stage: RECOVERY Duration (min): 1 min : 0 sec HR (bpm): 93 SBP (mmHg): 144 DBP (mmHg): 86 Stage: RECOVERY Duration (min): 2 min : 0 sec HR (bpm): 90 SBP (mmHg): 144 DBP (mmHg): 86 Stage: RECOVERY Duration (min): 3 min : 0 sec HR (bpm): 89 SBP (mmHg): 117 DBP (mmHg): 80 Stage: RECOVERY Duration (min): 3 min : 9 sec HR (bpm): 89 SBP (mmHg): 117 DBP (mmHg): 80 Rest HR: 74 bpm Peak HR: 95 bpm Rest Sys BP: 134 mmHg Peak Sys BP: 144 mmHg Max Pred HR: 161 bpm % Max Pred HR: 59 % Target HR: 137 bpm Max RPP: 13,680 bpm*mmHg Total Time: 1 min : 0 sec Rest Riley BP: 77 mmHg Peak Riley BP: 86 mmHg Total Dose: 0.4 mg Resting ECG Sinus rhythm. Stress ECG Sinus rhythm. No abnormal ST/T wave changes diagnostic of ischemia. Arrhythmias None. Report Signatures
[2024-03-23 05:45] LABS: Alanine Aminotransferase 19 U/L (6-35); Albumin Level 3.9 g/dL (3.5-5.1); Alkaline Phosphatase 96 U/L (38-126); Anion Gap 10 mmol/L (4-12); Aspartate Amino Transferase 19 U/L (14-36); Bilirubin,Total 0.3 mg/dL (0.2-1.3); Blood Urea Nitrogen 25 mg/dL (7-17); Calcium 9.1 mg/dL (8.4-10.2); Carbon Dioxide 27 mmol/L (22-30); Chloride 104 mmol/L (98-107); Estimated CRCL calculation 57 ml/min; Estimated Glomerular Filt Rate > 60; Glucose 213 mg/dL (65-110); Sodium 141 mmol/L (137-145)
[2024-03-23 09:39] LABS: Glucose Point of Care 166 mg/dl (65-105)
--- NOTE | 2024-03-23 10:44 | PM.PNCARD ---
Progress Note: A&P Assessment and Plan (1) Chest pain: Code(s): R07.9 - Chest pain, unspecified Status: Acute Plan Atypical chest pain with negative cardiac enzymes and no dynamic EKG changes Hypertension Diabetes mellitus type 2 Plan Underwent lexiscan stress test this morning. Results are pending. If negative, she can be discharged home from a cardiac standpoint. Continue losartan and hydrochlorothiazide Aspirin 81 mg daily Subjective Date/time seen: 03/23/24 10:44 Interval history: Cardiology follow up for chest pain Still has constant, mild chest discomfort this morning. No other complaints. Review of Systems Review of Systems: All systems reviewed & are unremarkable except as noted in HPI and below Exam Const: General: comfortable and no acute distress Other: Able to lie flat HENMT: Face/Nose/Sinus: Normal nares present and no epistaxis Mouth: Yes moist mucous membranes Eyes: Sclera: sclerae normal Pupils: Equal, round and reactive pupils present Neck: Neck: supple and no JVD Carotids: no bruits Resp: Auscultation: clear to auscultation bilaterally and lung sounds not diminished Other: No chest wall tenderness Cardio: Rate: regular rate Rhythm: regular rhythm Heart sounds: no gallops, no murmurs and no rubs GI: Auscultation: normal bowel sounds Skin: General skin exam: normal color, rashes and/or lesions noted and no erythema Other: Warm Neuro: Cranial nerves: Yes Equal, round and reactive pupils present Speech: normal speech Other: No obvious focal deficit or facial asymmetry Extrem: General: no edema Other: Normal capillary refills Intact distal pulses. Objective Data Vital Signs Vital Signs: Vital Signs - 24 hr 03/22/24 12:00 03/22/24 12:00 03/22/24 14:00 Temperature 36.6 C Pulse Rate 70 70 77 Respiratory Rate 20 Blood Pressure 155/75 H Pulse Oximetry 97 Oxygen Delivery 03/22/24 12:00 03/22/24 16:00 03/22/24 16:00 Temperature 36.6 C Pulse Rate 79 70 Respiratory Rate 20 Blood Pressure 149/70 H Pulse Oximetry 98 Oxygen Delivery Room Air 03/22/24 16:00 03/22/24 18:00 03/22/24 20:16 Temperature 36.4 C Pulse Rate 80 78 Respiratory Rate 20 Blood Pressure 135/64 Pulse Oximetry 99 Oxygen Delivery Room Air 03/22/24 20:58 03/22/24 23:47 03/22/24 20:35 Temperature 36.4 C Pulse Rate 81 82 Respiratory Rate 20 Blood Pressure 140/59 L Pulse Oximetry 100 Oxygen Delivery Room Air 03/22/24 23:30 03/22/24 20:00 03/22/24 22:00 Temperature Pulse Rate 86 77 Respiratory Rate Blood Pressure Pulse Oximetry Oxygen Delivery Room Air 03/23/24 00:00 03/23/24 02:00 03/23/24 04:10 Temperature 36.4 C Pulse Rate 85 80 80 Respiratory Rate 20 Blood Pressure 143/72 H Pulse Oximetry 98 Oxygen Delivery 03/23/24 04:00 03/23/24 04:00 03/23/24 06:00 Temperature Pulse Rate 88 76 Respiratory Rate Blood Pressure Pulse Oximetry Oxygen Delivery Room Air 03/23/24 08:55 Temperature 36.4 C Pulse Rate 75 Respiratory Rate 14 Blood Pressure 132/67 Pulse Oximetry 96 Oxygen Delivery Intake/Output Intake/Output: Intake & Output 03/20/24 03/21/24 03/22/24 03/23/24 23:59 23:59 23:59 23:59 Intake Total 1500 550 Output Total 700 450 Balance 800 100 Meds/Results Medications: Active Medications Generic Name Dose Route Start Last Admin Trade Name Freq PRN Reason Stop Dose Admin Acetaminophen 650 mg 03/21/24 16:30 03/22/24 21:00 Acetaminophen 325 Mg Tablet PO 650 mg Q6H PRN Administration Mild Pain (1-3) or Fever Aspirin 81 mg 03/22/24 08:00 03/22/24 08:41 Aspirin 81 Mg Chewable Tablet PO 81 mg DAILY@0800 SABAS Administration Dextrose 12.5 gm 03/21/24 16:30 Dextrose 50% 25 Gm/50 Ml Syringe IV PUSH PRN PRN Hypoglycemia Protocol Duloxetine HCl 60 mg
[2024-03-23 11:45] LABS: Glucose Point of Care 243 mg/dl (65-105)
--- NOTE | 2024-03-23 13:49 | PM.DS ---
DS: Admitting Diagnosis Discharge Date 03/23/24 Admitting Diagnosis chest pain DS: Discharge Diagnosis Discharge Diagnosis (1) Atypical chest pain: Code(s): R07.89 - Other chest pain Status: Acute DS: Summary Hospital Course Hospital Course: Plan The patient presented to the emergency department for evaluation of intermittent chest pain over the past 2 weeks as detailed in HPI. Labs, imaging, EKG, and all reports were personally reviewed. Initial troponin was normal however her EKG did show some nonspecific ST segment changes. She has a reproducible pain on palpation of the chest wall CTA Chest unremarkable, troponin negative, stress test today negative Chest pain likely from musculoskeletal. Assessment and Plan (1) Chest pain: Code(s): R07.9 - Chest pain, unspecified Status: Acute Assessment and Plan: marinoley musculoskeletal as CTA chest, stress test and troponin unremarkable f/u with cardiology as instructed (2) Type 2 diabetes mellitus: Code(s): E11.9 - Type 2 diabetes mellitus without complications Status: Acute Assessment and Plan: continue home regimen (3) Hypertension: Code(s): I10 - Essential (primary) hypertension Status: Acute Assessment and Plan: continue home regimen (4) Fibromyalgia: Code(s): M79.7 - Fibromyalgia Status: Acute Assessment and Plan: Stable on current medications, will continue current. F/u with PCP in 3-5 days F/u with cardiology as instructed Time Spent with Patient Time attestation: Total time spent providing and/or coordinating discharge services: DS: Data Data Completed and Pending Labs on day of discharge: Labs from last 24 hours 03/23/24 03/23/24 03/23/24 11:42 07:52 05:15 Sodium 141 Potassium 4.0 Chloride 104 Carbon Dioxide 27 Anion Gap 10 BUN 25 H Creatinine 1.00 Estim Creat Clear Calc 57 Estimated GFR > 60 Glucose 213 H POC Capillary Glucose 243 H 166 H Calcium 9.1 Total Bilirubin 0.3 AST 19 ALT 19 Alkaline Phosphatase 96 Total Protein 7.0 Albumin 3.9 03/22/24 03/22/24 20:59 16:27 Sodium Potassium Chloride Carbon Dioxide Anion Gap BUN Creatinine Estim Creat Clear Calc Estimated GFR Glucose POC Capillary Glucose 207 H 159 H Calcium Total Bilirubin AST ALT Alkaline Phosphatase Total Protein Albumin Discharge Plan Discharge Attending physician on discharge: Louise Finch Consulting providers: Abo-Mauldin,Patrick Discharging Clinician: Louise Finch Anticipated Discharge Date/Time: 03/23/24 13:47 Patient Disposition: Home, Self-Care Activity: as tolerated Diet: as tolerated Patient Instructions: Antibiotic Form Stand Alone Forms: General Discharge Information Follow-up/Referrals: Patrick Stark MD [Physician] - (F/u with cardiology as instructed) Viraj Constantino MD [Primary Care Provider] - (F/u with PCP in 3-5 days) Discharge Medications: Continued Mounjaro 2.5 mg/0.5 mL pen injector 2.5 mg subcut WEEKLY Rx Instructions: on Friday pregabalin 150 mg Capsule 150 mg PO BID losartan-hydrochlorothiazide 50-12.5 mg tablet 1 tablet PO DAILY Jardiance 25 mg tablet 25 mg PO DAILY duloxetine 20 mg Capsule, Delayed Rel Sprinkle 60 mg PO DAILY Date of admission: 03/21/24 15:41 Primary Care Provider: Viraj Constantino Admitting Provider: Miguel A Macias Attending physician on admission: Miguel A Macias Condition: Stable
== END 2024-03-23 15:15 | disposition home or self-care (01) ==
LOC: ANHED 15:22 → ANHIMU 16:54
PROVIDERS: Emergency Medicine; Internal Medicine; Physician Assistant; Admitting Provider Internal Medicine; Emergency Provider Emergency Medicine; PCP Emergency Medicine; Visit Provider Internal Medicine
DX: R07.89 Other chest pain (principal); M79.89 Other specified soft tissue disorders; E11.9 Type 2 diabetes mellitus without complications; I10 Essential (primary) hypertension; M79.7 Fibromyalgia; Z79.82 Long term (current) use of aspirin; Z79.84 Long term (current) use of oral hypoglycemic drugs; Z79.85 Long-term (current) use of injectable non-insulin antidiabetic drugs; Z86.73 Personal history of transient ischemic attack (TIA), and cerebral infarction without residual deficits
CPT/HCPCS: 36415; 71046; 71275; 78452; 80048; 80053; 80061; 82948; 83036; 83690; 84484; 85025; 85610; 85730; 93005; 93017; 93970; 99285; A9270; A9502; G0378; J1815; J2785; Q9967

== ENCOUNTER 2024-08-27 16:57 | Emergency (ER) | payer MEDICARE, SELFPAY ==
--- NOTE | ~2024-08-27 | XR_ITS ---
CHEST RADIOGRAPH, PA AND LATERAL CLINICAL HISTORY: chest pain, cough . COMPARISON: 03/21/2024 TECHNIQUE: PA and lateral views of the chest. FINDINGS The cardiomediastinal silhouette is unremarkable. The lungs are clear. Visualized osseous structures and soft tissues are unremarkable. IMPRESSION: No focal infiltrate or effusion. Reviewed, dictated and finalized at location A. BREEDER
--- OUTSIDE RECORDS SUMMARY | 2024-08-27 16:59 | XMS_ITS | Encounter Summary ---
Author Organization [facility] Address 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
--- OUTSIDE RECORDS SUMMARY | 2024-08-27 16:59 | XMS_ITS | Encounter Summary ---
Author Organization [facility] Address 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 Gender Identity Not on file Sexual Orientation Not on file documented as of this encounter Plan of Treatment Not on file documented as of this encounter Procedures Procedure Name Priority Date/Time Associated Diagnosis Comments US BREAST UNI RIGHT COMPLETE Routine 08/23/2008 2:25 PM AUTO SERVICER MAMMO DIAGNOSTIC BILATERAL W OR WO CAD Routine 08/23/2008 1:47 PM AUTO SERVICER documented in this encounter Results * US BREAST UNILATERAL RIGHT (08/23/2008 2:25 PM AUTO SERVICER) Anatomical Region Laterality Modality Breast Right Other 08/23/2008 2:25 PM AUTO SERVICER Narrative 08/24/2008 10:19 AM AUTO SERVICER [facility] [address] [place], [place] [address] Admit Date: 08/23/2008 VALDEZ FRANCOIS Sex: F Admit Prov: RAHEEM IHCKMAN Date: 1965 Primary Care Prov: RAHEEM HICKMAN CMRN: [id number] Room: ERICKA SSN: [id number] IMAGING SERVICES Ordering Prov: RAHEEM HICKMAN Accession Number: [id number] Interpretation BILATERAL FULL FIELD DIGITAL DIAGNOSTIC MAMMOGRAMS WITH COMPUTER AIDED DIAGNOSIS AND RIGHT BREAST ULTRASOUND Date: 08/23/2008 History: Intermittent bilateral breast tenderness. Comparison: July 2007 examination from [facility] Breast composition: Scattered fibroglandular densities. Findings: A small nodular density is suggested within the anterior to midportion of the right breast on the MLO projection which appears slightly less dense on the right mediolateral projection. This is thought to be in the medial breast on the right CC view and ultrasound of this area is recommended for further evaluation. No dominant mass, architectural distortion or suspicious microcalcifications are present in the left breast. No significant abnormality is detected by the CAD software. Targeted high resolution ultrasound is performed through the medial right breast. No suspicious solid or cystic abnormality is identified. Normal parenchymal architecture is maintained. Overall assessment: BI-RADS category 1 negative Recommendation: The patient may return for routine screening mammography in one year. This examination was personally reviewed with Dr. Stephen Kim. Dictated by: LEONEL MICHELLE Electronically signed by: LEONEL MICHELLE 08/24/2008 10:18 Transcribed: 08/23/2008 16:20 AMK Procedure Note Leonel Michelle - 08/24/[address] [address] Admit Date: 08/23/2008 VALDEZ FRANCOIS Sex: F Admit Prov: RAHEEM HICKMAN Date: 1965 Primary Care Prov: RAHEEM HICKMAN CMRN: [id number] Room: FLORENCEAnette SSN: [id number] IMAGING SERVICES Ordering Prov: RAHEEM HICKMAN Interpretation BILATERAL FULL FIELD DIGITAL DIAGNOSTIC MAMMOGRAMS WITH COMPUTERAIDED DIAGNOSIS AND RIGHT BREAST ULTRASOUND Date: 08/23/2008 History: Intermittent bilateral breast tenderness. Comparison: July 2007 examination from [facility] Breast composition: Scattered fibroglandular densities. Findings: A small nodular density is suggested within the anteriorto midportion of the right breast on the MLO projection which appearsslightly less dense on the right mediolateral projection. This is thought rosita in the medial breast on the right CC view and ultrasound of this areais recommended for further evaluation. No dominant mass,architectural distortion or suspicious microcalcifications are present in theleft breast. No significant abnormality is detected by the CAD software. Targeted high resolution ultrasound is performed through the medialright breast. No suspicious solid or cystic abnormality is identified.Normal parenchymal architecture is maintained. Overall assessment: BI-RADS category 1 negative Recommendation: The patient may return for routine screeningmammography in one year. This examination was personally reviewed with Dr. Stephen Kim. Dictated by: LEONEL MICHELLE Electronically signed by: LEONEL MICHELLE 08/24/2008 10:18 Transcribed: 08/23/2008 16:20 AMK us Raheem Hickman DO US ORDERABLES Final Result * MAMMO DIGITAL DIAG BILAT (08/23/2008 1:47 PM AUTO SERVICER) Anatomical Region Laterality Modality Breast Bilateral Other 08/23/2008 1:47 PM AUTO SERVICER Narrative 08/24/2008 10:19 AM AUTO SERVICER [address] [address] Admit Date: 08/23/2008 TSERINGVALDEZ Sex: F Admit Prov: RAHEEM HICKMAN Date: 1965 Primary Care Prov: RAHEEM HICKMAN CMRN: [id number] Room: ERICKA SSN: [id number] IMAGING SERVICES Ordering Prov: RAHEEM HICKMAN Accession Number: [id number] Interpretation BILATERAL FULL FIELD DIGITAL DIAGNOSTIC MAMMOGRAMS WITH COMPUTER AIDED DIAGNOSIS AND RIGHT BREAST ULTRASOUND Date: 08/23/2008 History: Intermittent bilateral breast tenderness. Comparison: July 2007 examination from [facility] Breast composition: Scattered fibroglandular densities. Findings: A small nodular density is suggested within the anterior to midportion of the right breast on the MLO projection which appears slightly less dense on the right mediolateral projection. This is thought to be in the medial breast on the right CC view and ultrasound of this area is recommended for further evaluation. No dominant mass, architectural distortion or suspicious microcalcifications are present in the left breast. No significant abnormality is detected by the CAD software. Targeted high resolution ultrasound is performed through the medial right breast. No suspicious solid or cystic abnormality is identified. Normal parenchymal architecture is maintained. Overall assessment: BI-RADS category 1 negative Recommendation: The patient may return for routine screening mammography in one year. This examination was personally reviewed with Dr. Stephen Kim. Assessment BIRADS: 1-Negative Recommendation: Normal interval follow-up Dictated by: LEONEL MICHELLE Electronically signed by: LEONEL MICHELLE 08/24/2008 10:18 Transcribed: 08/23/2008 16:20 AMK Procedure Note Leonel Michelle - 08/24/[address] [address] Admit Date: 08/23/2008 KRISTIN FRANCOISDESMOND Drew Sex: F Admit Prov: RAHEEM HICKMAN Date: 1965 Primary Care Prov: RAHEEM HICKMAN CMRN: [id number] Room: Anette SSN: [id number] IMAGING SERVICES Ordering Prov: RAHEEM HICKMAN Interpretation BILATERAL FULL FIELD DIGITAL DIAGNOSTIC MAMMOGRAMS WITH COMPUTERAIDED DIAGNOSIS AND RIGHT BREAST ULTRASOUND Date: 08/23/2008 History: Intermittent bilateral breast tenderness. Comparison: July 2007 examination from [facility] Breast composition: Scattered fibroglandular densities. Findings: A small nodular density is suggested within the anteriorto midportion of the right breast on the MLO projection which appearsslightly less dense on the right mediolateral projection. This is thought rosita in the medial breast on the right CC view and ultrasound of this areais recommended for further evaluation. No dominant mass,architectural distortion or suspicious microcalcifications are present in theleft breast. No significant abnormality is detected by the CAD software. Targeted high resolution ultrasound is performed through the medialright breast. No suspicious solid or cystic abnormality is identified.Normal parenchymal architecture is maintained. Overall assessment: BI-RADS category 1 negative Recommendation: The patient may return for routine screeningmammography in one year. This examination was personally reviewed with Dr. Stephen Kim. Assessment BIRADS: 1-Negative Recommendation: Normal interval follow-up Dictated by: LEONEL MICHELLE Electronically signed by: LEONEL MICHELLE 08/24/2008 10:18 Transcribed: 08/23/2008 16:20 AMK Raheem Hickman DO MAMMO ORDERABLES Final Result documented in this encounter Visit Diagnoses Diagnosis Mastodynia documented in this encounter
--- OUTSIDE RECORDS SUMMARY | 2024-08-27 16:59 | XMS_ITS | Encounter Summary ---
Author Organization [facility] Address 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
--- OUTSIDE RECORDS SUMMARY | 2024-08-27 16:59 | XMS_ITS | Referral Summary ---
Author Organization [facility] Address [address] [place] [address] Care Team Providers Care It Quality Analyst Name Role Phone Helen Ramirez DO Unavailable Nona Ayers MD Primary Care Provider [phone] Tono Rosado MD Unavailable [phone] Source Comments [facility],non-owned Affiliates and Associated Physician Practices is amultiple site organization consisting of ambulatory clinics and hospital sitesin [place], [place], [place] and [place]. This disclosure is being madepursuant to the Care Everywhere program and may not contain all information available regarding this patient. Last updated 18.[facility] Allergies No known active allergies Medications * Be aware that medications may not be up to date on this document. Alwaysverify current medications with the patient. Medication Sig Dispensed Refills Start Date End Date Status multivitamin daily (THERAGRAN) tablet Take 1 Tab by mouth daily with food. Active lisinopril (PRINIVIL; ZESTRIL) 20 MG tablet Take 20 mg by mouth once daily. Active traMADol (ULTRAM) 50 MG tablet Take 50 mg by mouth every 6 hours as needed. Active hydrochlorothiazide (HYDRODIURIL) 12.5 MG TABS Take 12.5 mg by mouth once daily Active methotrexate 2.5 MG tablet Take 6 Tabs by mouth every 7 days 24 Tab 2 02/09/2015 Active folic acid (FOLVITE) 1 MG tablet Take 5 Tabs by mouth every 7 days 3 days after taking the methotrexate. 20 Tab 2 02/09/2015 Active Active Problems Problem Noted Date Diagnosed Date Migraine 10/12/2009 Gestational diabetes 10/12/2009 Dysmetabolic syndrome X 08/03/2009 Vulvitis 12/07/2008 Dysthymia 12/07/2008 High blood pressure 11/21/2008 Colon polyps 11/21/2008 Overview (11/21/2008): With bleeding requiring cauterization and readmission Obesity 05/28/2005 IBS (irritable bowel syndrome) 05/14/2005 Fibromyalgia Overview (10/11/2011): Dx Dr. Rosado 2004. Paper chart NA. Added tizanidine 09/2011. Resolved Problems Problem Noted Date Diagnosed Date Resolved Date Type II or unspecified type diabetes mellitus without mention of complication, not stated as uncontrolled 11/21/2008 10/12/2009 Social History Tobacco Use Types Packs/Day Years Used Date Smoking Tobacco: Never Smokeless Tobacco: Never Alcohol Use Standard Drinks/Week Comments No 0 (1 standard drink = 0.6 oz pur e alcohol) occasionally Sex and Gender Information Value Date Recorded Sex Assigned at Not on file Gender Identity Not on file Sexual Orientation Not on file Last Filed Vital Signs Vital Sign Reading Time Taken Comments Blood Pressure 145/95 09/11/2015 10:00 AM SET OFF BLOCKER Pulse 77 09/11/2015 10:21 AM SET OFF BLOCKER Temperature 35.9 C (96.6 F) 09/11/2015 9:42 AM SET OFF BLOCKER Respiratory Rate 16 09/11/2015 10:21 AM SET OFF BLOCKER Oxygen Saturation 100% 09/11/2015 10:21 AM SET OFF BLOCKER Inhaled Oxygen Concentration - - Weight 92.1 kg (203 lb) 09/11/2015 9:03 AM SET OFF BLOCKER Height 165.1 cm (5' 5 ) 09/11/2015 9:03 AM SET OFF BLOCKER Body Mass Index 33.78 09/11/2015 9:03 AM SET OFF BLOCKER Functional Status Functional Status Response Date of Assess ment Is person deaf or have serious hearing difficult y? No 09/11/2015 Is person blind or have serious difficulty seein g? No 09/11/2015 Does person have serious dif ficulty walking/climbing stairs? No 09/11/2015 Does person have difficulty dressing/bathing? No 09/11/2015 Does person have difficulty doing errands alone? No 09/11/2015 Cognitive Status Response Date of Assessm ent Does person have difficulty concentrating/remembering/making decisions? No 09/11/2015 Plan of Treatment Not on file Procedures Procedure Name Priority Date/Time Associated Diagnosis Comments ENDOSCOPY, COLON, SCREENING Routine 09/11/2015 9:20 AM SET OFF BLOCKER LIPID PROFILE Routine 05/08/2010 2:39 PM CDT Dysmetabolic syndrome X Headache Black stool Dyspnea MAMMO BILAT SCREENING Routine 01/10/2010 3:35 PM CDT Other Screening Mammogram PAP IG LB CT+GC RFLX HPV HR ASCU 10/12/2008 9:56 AM CDT from Last 3 Months or Most Recently Relevant to Health Maintenance Results * ENDOSCOPY, COLON, SCREENING (09/11/2015 9:20 AM SET OFF BLOCKER) Report Endoscopy POC _ Patient Name: Cate Francois Procedure Date: 09/11/2015 9:20 AM Date of : 1965 Admit Type: Outpatient Age: 50 Gender: Female Attending MD: Ellen Leonard DO _ Procedure: Colonoscopy Indications: Screening for colorectal malignant neoplasm, High risk colon cancer surveillance: Personal history of colonic polyps, Incidental - Change in bowel habits Providers: Ellen Leonard DO (Doctor) Referring MD: Nona Zhou MD (Referring MD) Medicines: Sedation Required Anesthesia Staff Assistance Complications: No immediate complications. _ Procedure: Pre-Anesthesia Assessment: - ASA Grade Assessment: II - A patient with mild systemic disease. After I obtained informed consent, the scope was passed under direct vision. Throughout the procedure, the patient's blood pressure, pulse, and oxygen saturations were monitored continuously. The Colonoscope was introduced through the anus and advanced to the cecum, identified by appendiceal orifice and ileocecal valve. The colonoscopy was performed without difficulty. The patient tolerated the procedure well. The quality of the bowel preparation was good. Findings: The ascending colon appeared normal. Biopsies were taken with a cold forceps for histology. Many small-mouthed diverticula were found in the sigmoid colon. Internal hemorrhoids were found during retroflexion. The hemorrhoids were mild. _ Impression: - The ascending colon is normal. Biopsied. - Diverticulosis in the sigmoid colon. - Internal hemorrhoids. Recommendation: - Repeat colonoscopy in 5 years for surveillance. - Await pathology results. - Telephone my office for pathology results in 1 week. Procedure Code(s): --- Professional --- 39868, Colonoscopy, flexible; with biopsy, single or multiple --- Technical --- 27939, Colonoscopy, flexible; with biopsy, single or multiple Diagnosis Code(s): --- Professional --- Z12.11, Encounter for screening for malignant neoplasm of colon Z86.010, Personal history of colonic polyps K64.8, Other hemorrhoids K57.30, Diverticulosis of large intestine without perforation or abscess without bleeding --- Technical --- Z12.11, Encounter for screening for malignant neoplasm of colon Z86.010, Personal history of colonic polyps K64.8, Other hemorrhoids K57.30, Diverticulosis of large intestine without perforation or abscess without bleeding CPT copyright 2014 [employer] [place] [employer]. All rights reserved. The codes documented in this report are preliminary and upon pickling grader review may be revised to meet current compliance requirements. ___ Ellen Leonard DO 09/11/2015 9:40:41 AM This report has been signed electronically. Number of Addenda: 0 Note Initiated On: 09/11/2015 9:20 AM [facility] 09/11/2015 9:20 AM SET OFF BLOCKER Ellen Leonard DO GI PROCEDURE ORDERAB LES [facility] [place] [address] * LIPID PROFILE (05/08/2010 2:39 PM CDT) Cholesterol 127 100 - 199 mg/dL [facility] INSURANCE BILL Triglycerides 43 0 - 149 mg/dL [facility] INSURANCE BILL HDL Cholesterol 59 >39 mg/dL [facility] INSURANCE BILL Comment: According to ATP-III Guidelines, HDL-C >59 mg/dL is considered a negative risk factor for CHD. VLDL Calculated 9 5 - 40 mg/dL [facility] INSURANCE BILL LDL Calculated 59 0 - 99 mg/dL [facility] INSURANCE BILL BLOOD SPECIMEN / Unknown 05/08/2010 2:39 PM CDT 05/08/2010 9:23 PM CDT Narrative Resulting Agency Comment [facility] [address] [place] [address] [id number] Paulino Hickmna DO LAB - CHEMISTRY SANGITA OLIVEROS [facility] INSURANCE BILL * MAMMO SCREENING DIGITAL IMAGE BILAT G0202 (01/10/2010 3:35 PM CDT) Anatomical Region Laterality Modality Breast Bilateral Mammography 01/11/2010 9:23 AM CDT Narrative 01/12/2010 7:41 AM CDT EXAM: DIGITAL BILATERAL SCREENING MAMMOGRAMS WITH CAD CORRELATION DATE: 01/10/2010. PREVIOUS EXAM DATE: 04/07/2006. INDICATION: Screening. TECHNIQUE: Bilateral craniocaudad (CC) and mediolateral oblique (MLO) views. The study was interpreted with the aid of CAD. TECHNOLOGIST: RT Casey(R) (M) TISSUE DENSITY: Heterogeneously dense. FINDINGS: The right breast is unchanged. In the medial left breast, probably at the level of the nipple, there is a small nodular density measuring 9 mm which is new or increased since prior study. While this may represent a small cyst, additional evaluation with spot compression and possible ultrasound would be warranted. Its position is not definite on the MLO view, and a straight lateral film may be helpful. ASSESSMENT: BI-RADS CATEGORY 0 INCOMPLETE: NEED ADDITIONAL IMAGING EVALUATION. RECOMMENDATIONS: Spot compression for a 9 mm nodular density medial left breast. The above findings should be correlated with physical examination. A relatively nonspecific study should not preclude additional evaluation if suspicious findings are present clinically. An [employer] [place] [employer] Certified Facility Procedure Note Nancy Stoddard MD / Marleen Douglas (Clerical Edt), RT(R)(M) - 01/11/2010 EXAM: DIGITAL BILATERAL SCREENING MAMMOGRAMS WITH CAD CORRELATION DATE: 01/10/2010. PREVIOUS EXAM DATE: 04/07/2006. INDICATION: Screening. TECHNIQUE: Bilateral craniocaudad (CC) and mediolateral oblique (MLO) views. The study was interpreted with the aid of CAD. TECHNOLOGIST: RT Casey(R) (M) TISSUE DENSITY: Heterogeneously dense. FINDINGS: The right breast is unchanged. In the medial left breast, probably at the level of the nipple, there is a small nodular density measuring 9 mm which is new or increased since prior study. While this may represent a small cyst, additional evaluation with spot compression and possible ultrasound would be warranted. Its position is not definite on the MLO view, and a straight lateral film may be helpful. ASSESSMENT: BI-RADS CATEGORY 0 INCOMPLETE: NEED ADDITIONAL IMAGING EVALUATION. RECOMMENDATIONS: Spot compression for a 9 mm nodular density medial left breast. The above findings should be correlated with physical examination. A relatively nonspecific study should not preclude additional evaluation if suspicious findings are present clinically. An [employer] [employer] Certified Facility Paulino Hickman DO MAMMO ORDERABLES * PAP IG CT-NG RFLX HPV ASCU (PO REF LAB) (10/12/2008 9:56 AM CDT) [facility] INSURANCE BILL Diagnosis [facility] INSURANCE BILL Comment: NEGATIVE FOR INTRAEPITHELIAL LESION AND MALIGNANCY. FUNGAL ORGANISMS MORPHOLOGICALLY CONSISTENT WITH FAINA SPECIES ARE PRESENT. CELLULAR CHANGES ASSOCIATED WITH INFLAMMATION ARE PRESENT. Specimen Adequacy [facility] INSURANCE BILL Comment: Satisfactory for evaluation. No endocervical cells are present. This is consistent with a history of hysterectomy. [facility] INSURANCE BILL Clinician Provided ICD9 [facility] INSURANCE BILL Comment:V72.31 ; Routine hydrate control tender ecological examination Performed by [facility] INSURANCE BILL Comment:Shana Blanca, Cyto technologist QC Reviewed by [facility] INSURANCE BILL Comment:Cheryl Cuellar Fisher Line (ASCP) Comment . [facility] INSURANCE BILL Note [facility] INSURANCE BILL Comment: The Pap smear is a screening test designed to aid in the detection of premalignant and malignant conditions of the uterine cervix. It is not a diagnostic procedure and should not be used as the sole means of detecting cervical cancer. Both false-positive and false-negative reports do occur. . IGLBP CPT Code Automation [facility] INSURANCE BILL Comment: This liquid based ThinPrep(R) pap test was screened with the use of an image guided system. Reflex [facility] INSURANCE BILL Comment: The HPV DNA reflex criteria were not met with this specimen result therefore, no HPV testing was performed. . Chlamydia trachomatis MARA Negative Negative [facility] INSURANCE BILL GC DNA Probe Negative Negative [facility] INSURANCE BILL 10/12/2008 9:56 AM CDT 10/13/2008 12:47 AM CDT Narrative [facility] INSURANCE BILL - 10/18/2008 8:10 PM CDT LMP / Prev Treat...Hyst No. of containers..01 CYTYC Thin Prep Vial Resulting Agency Comment [facility] [address] [place] [id number] Helen Ramirez DO LAB - PATHOLOGY/CYTO LOGY ORDERABLES [facility] INSURANCE BILL from Last 3 Months or Most Recently Relevant to Health Maintenance Care Teams It Quality Analyst Relationship Specialty [place] [id number] [facility] [address] [place] [id number] PCP - OBGYN 11/21/08 Nona Ayers MD [facility] [place] [id number] PCP - General Family Medicine 11/01/13 Tono Rosado MD [address] [place] [address] [address] [place] [address] Rheumatology 01/26/15
--- OUTSIDE RECORDS SUMMARY | 2024-08-27 16:59 | XMS_ITS | Patient Health Record ---
Author Organization [facility] Address [address] [address] Care Team Providers Care Salesperson Yard Goods Name Role Phone Lanette matthews Primary Care Provider Maurizio Jensen Unavailable [phone] Allergies Allergen (clinical drug ingredient) Drug/Non Drug Allergy documented on EMR Reaction Allergy Type Onset Date Status metformin metFORMIN Rash Drug Allergy Active Reason For Referral No Information Medications Medication SIG (Take, Route, Frequency, Duration) Notes Start Date End Date Status Trulicity 1.5 MG/0.5ML as directed subcutaneously once a week Active Trulicity 3 MG/0.5 ML DIRECTED SUBCUTANEOUSLY ONCE A WEEK *Please review and pick correct strength-formulat ion from [employer] options. If intended option is not shown, discontinue and re-order from Quick Search* Active Lantus SoloStar 100 UNTIS/ML DIRECTED SUBQ *Please review and pick correct strength-formulat ion from [employer] options. If intended option is not shown, discontinue and re-order from Quick Search* Active FreeStyle Kyleigh 2 Sensor - - SQ EVERY 2 WEEKS for 90 DAYS *Please review and pick correct strength-formulat ion from [employer] options. If intended option is not shown, discontinue and re-order from Quick Search* Active Meloxicam 15 MG 1 tab(s) orally once a day for 30 day(s) Active Lisinopril 10 MG 1 tab(s) orally once a day Active Methocarbamol 500 MG 1 tab(s) orally 4 times a day Active NovoLOG FlexPen 100 UNIT/ML 50 units subcutaneously BID Active DULoxetine HCl 60 MG 1 cap(s) orally onc e a day for 30 day(s) Active Rosuvastatin Calcium 20 MG 1 tab(s) orally once a day Active traZODone HCl 50 MG 1 tab(s) orally QHS 10mg at bedtime Active Gabapentin 600 MG 1 tab(s) orally 3 times a day Active Aspirin 81 MG 1 tab(s) chewed once a day Active Trulicity 0.75 MG/0.5ML as directed subcutaneously once a week Active Social History Tobacco Use: Social History Observation Description Date Details (start date - stop date) Never Smoker NA - NA TU Question Answer Notes Are you a smoker never smoker Problems Problem Type SNOMED Code ICD Code Onset Dates Problem Status W/U Status Risk Notes Problem Hyperglycemia due to type 2 diabetes mellitus (404937992025028) Type 2 diabetes mellitus with hyperglycemia (E11.65) Active confirmed Problem Mixed hyperlipidemia (453722789) Mixed hyperlipidemia (E78.2) Active confirmed Problem Polyneuropathy due to type 2 diabetes mellitus (212148101) Type 2 diabetes mellitus with diabetic polyneuropathy (E11.42) Active confirmed Problem Essential hypertension (29080526) Essential (primary) hypertension (I10) Active confirmed Problem Obesity due to excess calories (024006371) Other obesity due to excess calories (E66.09) Active confirmed Problem Dietary management surveillance (872514983) Dietary counseling and surveillance (Z71.3) Active confirmed Problem Long-term current use of insulin (421017588) 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
--- OUTSIDE RECORDS SUMMARY | 2024-08-27 16:59 | XMS_ITS | Clinical Summary ---
Author Organization [facility] [address] Address [facility] [place] [address] Care Team Providers Care [place] Miner Name Role Phone Babak Traylor MD Primary Care Provider [phone] [facility] [place] Unavailable Allergies Active Allergy Reactions Criticality Noted Date Comments Metformin Nausea only High 10/12/2018 Shrimp Hives,Rash High 02/21/2017 Medications traZODone (DESYREL) 50 mg tablet 08/23/2021 Active gabapentin (NEURONTIN) 600 mg tablet Take 1 tablet (600 mg total) by mouth 3 (three) times a day 270 tablet 3 12/18/[address] (CYMBALTA) 60 mg capsule Take 1 capsule (60 mg total) by mouth daily 90 capsule 3 08/30/2022 Active methocarbamoL (ROBAXIN) 500 mg tablet Take 1 tablet (500 mg total) by mouth every 8 (eight) hours as needed for muscle spasms 90 tablet 08/30/2022 Active meloxicam (MOBIC) 15 mg tablet TAKE 1 TABLET(15 MG) BY MOUTH DAILY 90 tablet 1 02/10/2023 Active empagliflozin (Jardiance) 25 mg tabletIndicatio ns:type 2 diabetes mellitus Take 1 tablet (25 mg total) by mouth daily 90 tablet 3 05/20/2023 Active ondansetron (Zofran) 4 mg tablet Take 1 tablet (4 mg total) by mouth every 8 (eight) hours as needed for nausea or vomiting 20 tablet 2 06/03/2023 Active Mounjaro 10 mg/0.5 mL pen injector Inject 10 mg under the skin once a week 07/24/2023 Active Lyrica 75 mg capsule Take 1 capsule (75 mg total) by mouth every 12 hours 07/24/2023 Active losartan-hydroC HLOROthiazide (HYZAAR) 50-12.5 mg per tabletIndicatio ns:Hypertension associated with diabetes (HCC) Take 1 tablet by mouth daily 90 tablet 3 05/12/2024 05/12/20 25 Active Active Problems Problem Noted Date Diagnosed Date Physical exam, annual 04/23/2023 Assessment & Plan (04/24/2023 5:41 PM CDT): A(n) yearly well adult visit has been performed today. Cate Francois is not up to date on screening tests. She is in need of Diabetic eye exam, Diabetic foot exam, Diabetic kidney disease screening, and Cholesterol screening. She is not up to date on needed preventative vaccinations; She is in need of Influenza and Covid-19 (booster). We discussed healthy lifestyle habits, educational material has been given. Medications reviewed, changes documented as per the medical record and discussed with patient along with risks vs benefits. Return in 1 month Cervical radiculopathy 05/21/2022 Lumbar radiculitis 05/21/2022 Radicular pain in right arm 04/05/2022 Assessment & Plan (04/05/2022 5:13 PM CDT): EMG to investigate if carpal tunnel syndrome present Mild disc disease present in cervical spine as well, could contribute to right arm radicular pain Continuing gabapentin Looking at alternative modalities for neuropathy, given we are near 'maxxed' on gabapentin therapy Abdominal bloating 12/23/2021 Assessment & Plan (12/23/2021 10:58 AM CDT): Avoid cruciferous vegetables for now Start probiotic (e.g. Florastor or Align) Colace OTC will help with stool softening as well Stay hydrated Hold Jardiance over the weekend. If not improving over the next 2-3 days, will get imaging, consider miralax Costochondritis 11/29/2021 Pleurodynia 09/26/2021 Assessment & Plan (09/26/2021 12:25 PM UNCRATER): zofran PRN for nausea; will consider gall stone, so ultrasound ordered. If the ultrasound has too long a wait, I will switch to CT (let me know) I will want a chest xray, but likely we are dealing with pleurisy rather than serious issue. Infection can cause pleurisy, however, hence the xray. Medrol taper ordered as well. Will help deflate any inflammation involved Get the echo as scheduled Anxiety 09/04/2021 Encounter for medical examination to establish c are 09/04/2021 Assessment & Plan (09/05/2021 10:34 AM UNCRATER): A initial Medicare Annual Wellness Visit has been performed today. Cate Francois is not up to date on screening tests. She is in need of Breast cancer screening, hepatitis c screening and Cervical cancer screening- these have been ordered. She is not up to date on needed preventative vaccinations; She is in need of Zoster. These have been ordered/arranged unless otherwise indicated. Labs as ordered today Screening tests ordered as well We need to get referred for eye exams Records on endoscopies will be obtained Will await calcium score; we might want to repeat stress test. I do want to continue aspirin. Considering if peripheral vascular disease present, so ankle-brachia index study (vascular study) ordered (in [place]) Rheumatoid arthritis 03/19/2021 Shortness of breath 03/19/2021 Dyslipidemia 03/16/2021 Fibromyalgia 03/16/2021 Overview (09/04/2021): Dx Dr. Rosado 2004. Paper chart NA. Added tizanidine 09/2011. GERD (gastroesophageal reflux disease) 1 Neuropathy 03/16/2021 Hyperlipidemia with target LDL less than 100 08/2019 Adhesive capsulitis of left shoulder 04/14/2019 Cervical spondylosis without myelopathy 03/01/20 19 Polyarthralgia 12/08/2018 History of CVA with residual deficit 11/23/2018 Diabetic neuropathy associat ed with type 2 diabetes mellitus ([facility]/HCC) 11/09/2018 Thyroid nodule 09/23/2018 Overview (09/04/2021): Last Assessment & Plan: CTA pulmonary incidentally made note of heterogeneous thyroid gland with multiple hypodense nodules, the largest within the right thyroid lobe measures 1.7 cm. Stable. - Outpatient thyroid ultrasound Last Assessment & Plan: CTA pulmonary incidentally made note of heterogeneous thyroid gland with multiple hypodense nodules, the largest within the right thyroid lobe measures 1.7 cm. Stable. - Outpatient thyroid ultrasound Right sided weakness 01/20/2018 Overview (09/04/2021): Last Assessment & Plan: TIA vs CVA. CT negative for stroke MRI shows: No acute intracranial process. Few small, subcentimeter foci of T2 signal abnormality within the subcortical white matter as well as some mild periventricular white matter signal abnormality. Differential considerations include sequelae of migraine, vasculitis, chronic small vessel ischemic change, or less likely a demyelinating process PT/OT recommends home with rehab Start on aspirin and statin Last Assessment & Plan: TIA vs CVA. CT negative for stroke MRI shows: No acute intracranial process. Few small, subcentimeter foci of T2 signal abnormality within the subcortical white matter as well as some mild periventricular white matter signal abnormality. Differential considerations include sequelae of migraine, vasculitis, chronic small vessel ischemic change, or less likely a demyelinating process PT/OT recommends home with rehab Start on aspirin and statin Slurred speech 01/20/2018 Overview (09/04/2021): Last Assessment & Plan: No slurred speech Stroke (cerebrum) 01/20/2018 Diabetes 01/20/2018 Overview (09/04/2021): Last Assessment & Plan: Patient on insulin at home Will continue insulin and add correctional scale As needed. Breast pain 12/01/2017 Overview (09/04/2021): Last Assessment & Plan: Likely musculoskeletal. Initial concern for possible ACS/UA, but this has been sufficiently ruled out. EKG with no acute ischemic changes. CTA pulmonary negative for PE or aoritic dissection/aneurysm. Troponin enzymes negative x3. Recent cardiac catheterization (12/02/2017) which showed widely patent coronary arteries. Improved. CP resolved. - D/C home today - Outpatient follow up with PCP Assessment & Plan (08/21/2023 9:19 AM UNCRATER): Patient is complaining of bilateral breast pain that she has been experiencing for the last few months. There is diffuse fibrocystic tissue noted bilaterally with tenderness. We will go ahead and schedule her for a bilateral diagnostic mammogram with bilateral ultrasounds. Patient was encouraged to try vitamin-E 400 IU daily for her breast pain. I encouraged her to continue with self-breast exams. Migraine 10/12/2009 Dysmetabolic syndrome X 08/03/2009 Assessment & Plan (11/29/2021 1:37 PM CDT): Awaiting a1c BP is improved Discussed increasing activity/exercise, safely (brisk walking with light dumbbells, for example) Dysthymia 12/07/2008 Vulvitis 12/07/2008 Colon polyps 11/21/2008 Overview (09/04/2021): With bleeding requiring cauterization and readmission Hypertension associated with diabetes 11/21/2008 Overview (09/04/2021): Last Assessment & Plan: Stable. - Resume bystolic, lisinopril, HCTZ on dishcarge Last Assessment & Plan: Stable. - Resume bystolic, lisinopril, HCTZ on dishcarge Last Assessment & Plan: Monitor Stable Allow permissive hypertension for now. Assessment & Plan (04/23/2023 2:08 PM CDT): Labs as ordered, including a1c, metabolic panel Adding hctz to losartan, will be two-in-one medication Monitor BP daily, aiming for 120's/70's ultimately Follow DASH plan more stringently, will help to get the BP down Continuing Jardiance, dulaglutide Assessment & Plan (10/11/2022 1:03 PM CDT): BP stable on initial, did increase after exam/dizziness reproduced. Discussed that goal is 120s/70s, which it sounds like home BP's are hanging near the goal but want to see the numbers. BP log provided to patient and she will bring to follow up. Assessment & Plan (09/14/2022 2:07 PM UNCRATER): Will try to resume Ladi Discussed insulin, and its place in type 2 diabetes. We will consider, but I want to get the Jaimeity going again Switching from lisinopril to losartan Watch BP after switch. Will want BP to settle in 120's/70's Assessment & Plan (06/10/2022 10:59 PM UNCRATER): Continuing lisinopril, Trulicity, Jardiance Obesity 05/28/2005 Overview (09/04/2021): Last Assessment & Plan: Counseled on weight loss to reduce CVD risk factors Assessment & Plan (11/29/2021 1:36 PM CDT): BMI Follow-up includes: nutrition counseling, exercise counseling and education provided. IBS (irritable bowel syndrome) 05/14/2005 Lupus Resolved Problems Problem Noted Date Diagnosed Date Resolved Date Gestational diabetes 10/12/2009 024 Encounters Date Type Department Care Team Description 06/30/2024 ACO Quality [facility] Accountable Care Organization [address] [place] [id number] Irina Esparza 06/30/2024 Orders Only [facility] Care Organization [address] [place] [address] ProviderPierre MD 06/06/2024 ACO Outreach [address] [address] Suze Ceballos MA 06/04/2024 ACO Clinical Pharmacist [address] [address] Rosetta Moffett RPh 06/02/2024 Telephone [facility] Medical Group Primary Care at [address] [address] Rosetta Moffett RPh Med Management ([facility] Statin Gaps in Care) 06/02/2024 ACO Clinical Pharmacist [address] [id number] Rosetta Moffett RPh from Last 3 Months Immunizations Name Administration Dates Next Due Influenza, Quadrivalent, Spl it, Intramuscular 07/06/2021,09/13/2020,05/15/2016 Influenza, Quadrivalent, Spl it, Preservative Free, Intramuscular 04/14/2019 Influenza, Trivalent, IM (MDV) 05/10/2014 Influenza, Trivalent, Preser vative Free, Intramuscular 09/09/2012 Influenza, Unspecified 04/22/2023(Deferr ed: Patient Refused),09/10/2022(Deferred: Patient Refused - unsure if she got it elsewhere),07/21/2021(Deferred: Patient Refused) Pneumococcal Conjugate 7-Valent 04/29/2014 Pneumococcal Polysaccharide PPV23 11/18/2018 Tdap 07/21/2015 Surgical History Surgery Date Site/Laterality Comments CHOLECYSTECTOMY 07/21/1997 - 07/20/1998 HYSTERECTOMY Medical History Medical History Date Comments Diabetes mellitus (HCC) Hypertension Neuropathy (CMS/HCC) Lupus Hyperlipidemia Degenerative cervical disc Heart abnormality CVA, old, hemiparesis (CMS/HCC) (HCC) Obesity 05/28/2005 Last Assessment & Plan: Counseled on weight loss to reduce CVD risk factors Thyroid nodule 09/23/2018 Formatting of th is note might be different from the original. Last Assessment & Plan: CTA pulmonary incidentally made note of heterogeneous thyroid gland with multiple hypodense nodules, the largest within the right thyroid lobe measures 1.7 cm. Stable. - Outpatient thyroid ultrasound Last Assessment & Plan: CTA pulmonary incidentall GERD (gastroesophageal reflux disease) 03/16/2021 IBS (irritable bowel syndrome) 05/14/2005 Anxiety 09/04/2021 Migraine 10/12/2009 Family History Medical History Relation Name Comments Blood Clot Brother 1 Diabetes Brother 1 Hypertension Brother 1 Hypertension Brother 2 Alcohol abuse Father Liver disease Father Hypertension Mother Lupus Mother Uterine cancer Mother Arthritis Sister Breast cancer Neg Hx Ovarian cancer Neg Hx Thyroid cancer Neg Hx Relation Name Status Comments Brother 1 Alive Brother 2 Father Mother Sister Alive Social History Tobacco Use Types Packs/Day Years Used Date Smoking Tobacco: Never Passive Smoke Exposure: Never Smokeless Tobacco: Never Tobacco Cessation:Counseling Given: Not Answered Humiliation, Afraid, Rape, and Kick questionnair e Answer Date Recorded Within the last year, have y ou been afraid of your partner or ex-partner? No 08/21/2023 Within the last year, have y ou been humiliated or emotionally abused in other ways by your partner or ex-partner? No Within the last year, have y ou been kicked, hit, slapped, or otherwise physically hurt by your partner or ex-partner? No 08/21/2023 Within the last year, have y ou been raped or forced to have any kind of sexual activity by your partner or ex-partner? No 08/21/2023 Social Connection and Isolation Panel [NHANES] A nswer Date Recorded Frequency of Communication with Friends and Fami ly Not on file 09/05/2021 Frequency of Social Gatherings with Friends and Family Not on file 09/05/2021 Attends [employer] Services Not on file 09/05 Active Member of Clubs or Organizations Not on f ile 09/05/2021 Attends Club or Organization Meetings Not on jeramie e 09/05/2021 Are you , , di vorced, , never , or living with a partner? 09/05/2021 AUDIT-C Answer Date Recorded Q1: How often do you have a drink containing alc ohol? Monthly or less 08/21/2023 Q2: How many drinks containi ng alcohol do you have on a typical day when you are drinking? 1 or 2 08/21/2023 Q3: How often do you have si x or more drinks on one occasion? Never 08/21/2023 Overall Financial Resource Strain (CARDIA) Answe r Date Recorded How hard is it for you to pa y for the very basics like food, housing, medical care, and heating? Not hard at all 09/05/2021 PHQ-2 Answer Date Recorded PHQ-2 Total Score (If total score is 3 or more points, staff should administer the PHQ-9) 0 06/03/2023 [facility] - Occupational Stress Questionnaire Answer Date Recorded Do you feel stress - tense, restless, nervous, or anxious, or unable to sleep at night because your mind is troubled all the time - these days? Not at all 09/05/2021 Exercise Vital Sign Answer Date Recorde d On average, how many days pe r week do you engage in moderate to strenuous exercise (like a brisk walk)? 7 days 09/04/2021 On average, how many minutes do you engage in exercise at this level? 30 min 09/04/2021 Hunger Vital Sign Answer Date Recorded Within the past 12 months, y ou worried that your food would run out before you got the money to buy more. Never true 09/05/19 22 Within the past 12 months, t he food you bought just didn't last and you didn't have money to get more. Never true 09/05/2021 PRAPARE - Transportation Answer Date Re corded In the past 12 months, has l ack of transportation kept you from medical appointments or from getting medications? No 08/21 In the past 12 months, has l ack of transportation kept you from meetings, work, or from getting things needed for daily living? No 09/05/2021 Housing Stability Vital Sign Answer Brad e Recorded In the last 12 months, was t here a time when you were not able to pay the mortgage or rent on time? No 09/05/2021 Number of Places Lived in the Last Year Not on f ile 09/05/2021 In the last 12 months, was t here a time when you did not have a steady place to sleep or slept in a snf (including now)? No 09/05/2021 Education Answer Date Recorded What is the highest level of school you have completed or the highest degree you have received? Some college, no degree 09/04/2021 Comments No Sex and Gender Information Value Date Recorded Sex Assigned at Not on file Legal Sex Female 7:27 PM UNCRATER Gender Identity Not on file Sexual Orientation Not on file Occupation Industry Job Start Date Job End Date [employer] Not on file Not on file Not on file Obstetrics History Para Term AB IAB SAB Ectopic Multiple Livin g Live Births 2 1 1 1 1 1 2 2 Date Outcome GA Total Labor Labor//3rd Weight Sex Type Anes PTL Jennie A1 A5 Name Clin 01/06 96 SAB M Demise 06/08 97 Term 2.41 kg (5 lb 5 oz) F Vaginal None Living Complications:None Term 3.033 kg (6 lb 11 oz) F Vaginal None Living Complications:None Last Filed Vital Signs Vital Sign Reading Time Taken Comments Blood Pressure 124/70 08/21/2023 8:48 AM UNCRATER Pulse 68 06/03/2023 9:59 AM UNCRATER Temperature 36.1 C (97 F) 06/03/2023 9:59 AM UNCRATER Respiratory Rate 17 06/03/2023 9:59 AM UNCRATER Oxygen Saturation 97% 06/03/2023 9:59 AM UNCRATER Inhaled Oxygen Concentration - - Weight 85.7 kg (188 lb 14.4 oz) 08/21/2023 8:48 AM UNCRATER Height 165.1 cm (5' 5 ) 09/11/2023 8:43 AM UNCRATER Body Mass Index 31.43 08/21/2023 8:48 AM UNCRATER Plan of Treatment Health Maintenance Due Date Last Done Comments Hepatitis B Screening 1982 Zoster Vaccine (1 of 2) 2014 Dilated Eye Exam 11/08/2023 11/07/2022 Covid-19 Vaccine (2023-2 5 season) 2024 07/21/2021, 05/22/2021, 10/25/2020, Additional history exists Influenza Vaccine (#1) 2024 , 09/13/2020, 04/14/2019, Additional history exists Foot Exam 04/22/2024 04/22/2023, 11/28/2021 Albumin Creatinine Ratio, Urine 05/08/2024 , 09/04/2021 Lipid Panel 05/08/2024 05/08/2023, 02/18, 09/04/2021, Additional history exists eGFR 05/08/2024 05/08/2023, 09/0 07/2021, 03/05/2022, Additional history exists Depression Screening 06/03/2024 06/03/2023, 04/22/2023, 11/08/2022, Additional history exists Regular Well Visit/Exam 18-64 08/21/2024, 04/22/2023, 09/04/2021 Breast Cancer Screening-Mammogram 09/11/2024 09/11/2023, 08/17/2022, 12/11/2016 Hemoglobin A1C 09/19/2024 03/22/2024, 04/20, 08/20/2022, Additional history exists DTaP/Tdap/Td Vaccine (2 - Td or Tdap) 07/21/2025 07/21/2015 Pneumococcal vaccine <65 (3 of 3 - PPSV23 or PCV20) 2029 11/18/2018, 04/29/2014 Colon Cancer Screening-Colonoscopy 05/08/20302019, 09/11/2015 Hepatitis C Screening Completed 08/12/2023, 022 Procedures Procedure Name Priority Date/Time Associated Diagnosis Comments HM HEMOGLOBIN A1C Routine 03/22/2024 12: 44 PM CDT DIAGNOSTIC MAMMOGRAM BILATERAL W ANABEL Schedule Routine, Read Routine (OP Routine) 09/11/2023 8:57 AM UNCRATER Breast pain HEPATITIS C ANTIBODY Routine 08/12/2023 12:09 PM UNCRATER EGFR Routine 05/08/2023 8:38 AM CDT Hypertension associated with diabetes (HCC) LIPID PANEL Routine 05/08/2023 8:38 AM CDT Hyperlipidemia with target LDL less than 100 ALBUMIN CREATININE RATIO, URINE Routine 05/08/2023 8:38 AM CDT Hypertension associated with diabetes (HCC) DIABETES EYE EXAM Routine 11/07/2022 COLONOSCOPY Routine 05/08/2020 from Last 3 Months or Most Recently Relevant to Health Maintenance Results * HEMOGLOBIN A1C (03/22/2024 12:44 PM CDT) us Historical Provider HEALTH MAINTENANCE Final Result * DIAGNOSTIC MAMMOGRAM BILATERAL W ANABEL (09/11/2023 8:57 AM UNCRATER) Anatomical Region Laterality Modality Breast Bilateral Mammography 09/11/2023 9:28 AM UNCRATER Impressions 09/11/2023 9:28 AM UNCRATER 1. No suspicious finding on either mammogram or ultrasound at the area of concern (chronic tenderness/palpable lump) within the upper outer quadrant of the right breast. Clinical follow-up is recommended. Please base any further evaluation on clinical grounds. 2. No mammographic evidence of malignancy in either breast. No evidence of malignancy in the upper outer right breast on ultrasound. Monthly self breast examination and annual screening mammography are recommended. BI-RADS: 1 - Negative. The patient has been notified of these results and recommendations. Electronically signed by: David Winters M.D. Narrative 09/11/2023 9:28 AM UNCRATER EXAMINATION: DIAGNOSTIC MAMMOGRAM BILATERAL W ANABEL, US BREAST RIGHT LIMITED ORDERING HEALTHCARE PROVIDER: DAHIANA ORTIZ HISTORY: 58-year-old female presents for chronic tenderness (worse with caffeine intake) and a pea-sized palpable lump (for 3 months) in the upper outer quadrant of the right breast. Annual left screening mammogram. COMPARISON: 08/17/2022, 12/13/2020 TECHNIQUE: CC and MLO views of the bilateral breasts were obtained with digital technique using breast tomosynthesis with C view. Computer aided detection was utilized. Limited grayscale ultrasound of the right breast was performed. FINDINGS: BREAST DENSITY: There are scattered fibroglandular elements in the bilateral breasts. MAMMOGRAM FINDINGS: A radiopaque marker has been placed on the upper outer right breast denoting the palpable/tender area of concern. There is no definite abnormality underlying the marker. No suspicious masses, suspicious calcifications, or other suspicious findings are seen in either breast. There has been no suspicious interval change within either breast on mammogram. ULTRASOUND FINDINGS: Targeted ultrasound of the area of concern in the upper outer quadrant of the right breast (9-12:00) demonstrates only normal tissue with no solid or cystic mass or other suspicious finding. us Dahiana Ortiz NP IMG MAMMO PROCEDURES Final Resul t * Hepatitis C antibody Blood (08/12/2023 12:09 PM UNCRATER) Hep C Ab Nonreactive Nonreactive [facility] Comment: Interpretive Data Nonreactive: Antibodies to HCV not detected. Does NOT exclude the possibility of recent exposure to HCV. Equivocal: Equivocal for HCV antibodies. Supplemental molecular testing will be automatically performed to determine infection status in accordance with current CDC screening recommendations. Reactive: Positive for HCV antibodies. This may represent current or past HCV infection. Supplemental molecular testing will be automatically performed to determine current infection status in accordance with current CDC screening recommendations. Interpretive data was last revised on 2019. Blood 08/12/2023 12:0 9 PM UNCRATER 08/12/2023 2:38 PM UNCRATER us Elizabeth Silveira MD LAB MICROBIOLOGY - GENERAL ORDER DAVID Final Result [facility] [address] Department of Laboratories [place], [place] [id number] * eGFR (05/08/2023 8:38 AM CDT) eGFR 104 mL/min/1. 73 m2 Comment: Interpretive Data Reference Interval Normal >/= 90 mL/min/1.73m2 Mildly decreased* 60 - 89 mL/min/1.73m2 Mildly to moderately decreased 45 - 59 mL/min/1.73m2 Moderately to severely decreased 30 - 44 mL/min/1.73m2 Severely decreased 15 - 29 mL/min/1.73m2 Kidney Failure < 15 mL/min/1.73m2 *Relative to young adult level Estimated glomerular filtration rate is determined by the 2020 CKD-EPI equation recommended by the National Kidney Foundation (A Unifying Approach to GFR Estimation: Recommendations of the NKF-ASK Task Force on Reassessing the Inclusion of Race in Diagnosing Kidney Disease, JASN 2020). The CKD-EPI equation should not be used for patients with unstable renal function and has not been validated in children and those over 70. Current interpretive data was last reviewed 2021. Blood 05/08/2023 8:38 AM CDT 05/08/2023 2:58 PM CDT Babak Traylor MD LAB BLOOD ORDERABLES Final Result Performing Organization Address [facility] de Phone Number JOSELINE GUZMAN [phone] [facility] [employer] [place] [address] * (ABNORMAL) Albumin Creatinine Ratio, Urine (05/08/2023 8:38 AM CDT) Albumin Ur 31.8 mg/L Comment: Interpretive Data No reference range established. Current interpretive data was last revised 2018. Creatinine Ur 103.9 mg/dL JOSELINE GUZMAN Comment: Interpretive Data No reference range established. Current interpretive data was last revised 2018. Albumin Creatinine Ratio, Ur 31(H) 1 - 29 mg/g JOSELINE Urine 05/08/2023 8:38 AM CDT 05/08/2023 2:47 PM CDT Babak Traylor MD LAB URINE ORDERABLES Final Result Performing Organization Address [facility] Co de Phone Number JOSELINE THOMAS [phone] [place] [address] * (ABNORMAL) Lipid panel (05/08/2023 8:38 AM CDT) Cholesterol 129 30 - 199 mg/dL Comment: Interpretive Data Ages < or = 19 years Acceptable: <170 mg/dL Borderline high: 170-199 mg/dL High: >or= 200 mg/dL Ages > or = 20 years Desirable: <200 mg/dL Borderline high: 200-239 mg/dL High: >or= 240 mg/dL Literature References: 1. Expert Panel on Integrated Guidelines for Cardiovascular Health and Risk Reduction in Children and Adolescents. Pediatrics 2011;128:S213 2. NCEP Expert Panel. Circulation 2004;110:227 Current Interpretive Data was last revised on 2018. Triglycerides 68 <=149 mg/dL JOSELINE GUZMAN Comment: Interpretive Data Ages < or = 9 years Acceptable: <75 mg/dL Borderline high: 75-99 mg/dL High: >or= 100 mg/dL Ages 10 to 20 years Acceptable: <90 mg/dL Borderline high: 90-129 mg/dL High: >or= 130 mg/dL Ages > or = 20 years Desirable: <150 mg/dL Borderline high: 150-199 mg/dL High: 200-499 mg/dL Very high: >or= 499 mg/dL Literature References: 1. Expert Panel on Integrated Guidelines for Cardiovascular Health and Risk Reduction in Children and Adolescents. Pediatrics 2011;128:S213 2. NCEP Expert Panel. Circulation 2004;110:227 Current Interpretive Data was last revised on 2018. HDL 36(L) >=40 mg/dL JOSELINE GUZMAN Comment: Interpretive Data Ages < or = 19 years Acceptable: >45 mg/dL Borderline low: 40-45 mg/dL Low: <40 mg/dL Ages > or = 20 years Desirable: >or= 60 mg/dL Low: <40 mg/dL Literature References: 1. Expert Panel on Integrated Guidelines for Cardiovascular Health and Risk Reduction in Children and Adolescents. Pediatrics 2011;128:S213 2. NCEP Expert Panel. Circulation 2004;110:227 Current Interpretive Data was last revised on 2018. LDL, calculated 79 <=129 mg/dL JOSELINE GUZMAN Comment: Interpretive Data Ages < or = 19 years Acceptable: <110 mg/dL Borderline high: 110-129 mg/dL High: >or= 130 mg/dL Ages > or = 20 years Optimal: <100 mg/dL Near optimal: 100-129 mg/dL Borderline high: 130-159 mg/dL High: >160 mg/dL Literature References: 1. Expert Panel on Integrated Guidelines for Cardiovascular Health and Risk Reduction in Children and Adolescents. Pediatrics 2011;128:S213 2. NCEP Expert Panel. Circulation 2004;110:227 Current Interpretive Data was last revised on 2018. Non-HDL Cholesterol 93 mg/dL JOSELINE GUZMAN Comment: Interpretive Data Ages < or = 19 years Acceptable: <120 mg/dL Borderline high: 120-144 mg/dL High: >145 mg/dL Ages > or = 20 years When triglycerides are >200 mg/dL, Non-HDL cholesterol is a secondary target of therapy with treatment goals that are 30 mg/dL greater than the LDL cholesterol target. Literature References: 1. Expert Panel on Integrated Guidelines for Cardiovascular Health and Risk Reduction in Children and Adolescents. Pediatrics 2011;128:S213 2. NCEP Expert Panel. Circulation 2004;110:227 Current Interpretive Data was last revised on 2018. Chol/HDL ratio 4 RADHAESTEBAN Blood 05/08/2023 8:38 AM CDT 05/08/2023 2:47 PM CDT Babak Traylor MD LAB BLOOD ORDERABLES Final Result Performing Organization Address City/State/ZIP Co mi Phone Number JOSELINE [phone] [address] [place] [address] * DIABETES EYE EXAM (11/07/2022) Historical Provider HEALTH MAINTENANCE Final Result * COLONOSCOPY (05/08/2020) Historical Provider HEALTH MAINTENANCE Final Result from Last 3 Months or Most Recently Relevant to Health Maintenance Insurance MEDICARE SOLUTIONS MEDICARE mth sense MEDICARE SOLUTIONS Care Teams Hard Rock Miner Relationship Specialty Start Date End Date Babak Traylor MD [facility] [place] [address] PCP - General Family Medicine 09/04/21 Ellen Leonard Sr., [address] [place] [phone] Consulting Physician Gastroenterology 09/04/21
--- OUTSIDE RECORDS SUMMARY | 2024-08-27 16:59 | XMS_ITS | Encounter Summary ---
Author Organization [facility] Address 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
--- OUTSIDE RECORDS SUMMARY | 2024-08-27 16:59 | XMS_ITS | Encounter Summary ---
Author Organization [facility] Address 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 Gender Identity Not on file Sexual Orientation Not on file documented as of this encounter Plan of Treatment Not on file documented as of this encounter Procedures Procedure Name Priority Date/Time Associated Diagnosis Comments MAMMO SCREENING BILAT Routine 08/10/2007 1:53 PM NUCLEAR REACTOR TECHNICIAN documented in this encounter Results * MAMMO SCREENING BILAT (08/10/2007 1:53 PM NUCLEAR REACTOR TECHNICIAN) Anatomical Region Laterality Modality Breast Bilateral Other 08/10/2007 1:53 PM NUCLEAR REACTOR TECHNICIAN Narrative 08/19/2007 3:31 PM NUCLEAR REACTOR TECHNICIAN [facility] [address] [place], [place] [address] Admit Date: 08/10/2007 VALDEZ FRANCOIS Sex: F Admit Prov: DOCTOR, NOT O Date: 1965 Primary Care Prov: PCP, UNKNOWN CMRN: [id number] Room: [facility] SSN: [address] [place] [address] IMAGING SERVICES Ordering Prov: DOCTOR, NOT O Accession Number: [id number] Addendum Patient's previous mammogram from [facility] dated 09/11/2004 has been made available for comparison. There is no significant change in the appearance of either breast, including a focal nodule in the lateral right breast on the CC view. Ms. Francois may resume bilateral screening mammography in 07/2008, providing she remains clinically normal in the interim. BIRADS category 2 Assessment BIRADS: 2-Benign finding Recommendation: Normal interval follow-up Dictated by: CADECNE GROVES Electronically signed by: CADENCE GROVES 08/19/2007 15:31 Transcribed: 08/19/2007 15:15 AMK Interpretation BILATERAL SCREENING MAMMOGRAMS, 08/10/2007 Clinical History: Ms. Francois is a 42-year-old female who presents for screening exam. Previous mammogram was performed at [facility] in 2005. Findings: Bilateral filmscreen mammography was performed. The breast parenchyma is of moderate density and relatively symmetrical. In the far lateral aspect of the right breast, posterior depth, on the CC view, a small masslike density is present with associated architectural distortion. This is not confirmed on the MLO view. There are no malignant type calcifications, lymphadenopathy, skin thickening or nipple retraction. The left breast is unremarkable. Impression: [facility]iology will attempt to obtain the patient's previous mammograms from [facility] to determine stability in a masslike density in the lateral aspect of the right breast. If previous films cannot be obtained, or this represents a new finding, then additional diagnostic imaging will be required. Report revised on 08/19/2007 3:31:50 PM by CADENCE GROVES Assessment BIRADS: 0-Incomplete: Need additional imaging evaluation Recommendation: Old films for comparison Dictated by: CADENCE GROVES Electronically signed by: CADENCE GROVES 08/12/2007 19:40 Transcribed: 08/12/2007 16:28 DKT Procedure Note Cadence Groves - 08/19/2007 [id number] [place], [place] [address] Admit Date: 08/10/2007 VALDEZ FRANCOIS Sex: F Admit Prov: DOCTOR, NOT O Date: 1965 Primary Care Prov: PCP, UNKNOWN CMRN: [id number] Room: [facility] SSN: [id number] IMAGING SERVICES Ordering Prov: VASYL LAMAR Addendum Patient's previous mammogram from [facility] dated 09/11/2004 hasbeen made available for comparison. There is no significant change inthe appearance of either breast, including a focal nodule in the lateralright breast on the CC view. Ms. Francois may resume bilateral screening mammography in 07/2008, providing she remains clinically normal inthe interim. BIRADS category 2 Assessment BIRADS: 2-Benign finding Recommendation: Normal interval follow-up Dictated by: CADENCE GROVES Electronically signed by: CADENCE GROVES 08/19/2007 15:31 Transcribed: 08/19/2007 15:15 AMK Interpretation BILATERAL SCREENING MAMMOGRAMS, 08/10/2007 Clinical History: Ms. Francois is a 42-year-old female who presentsfor screening exam. Previous mammogram was performed at [id number]. Findings: Bilateral filmscreen mammography was performed. Thebreast parenchyma is of moderate density and relatively symmetrical. In thefar lateral aspect of the right breast, posterior depth, on the CC view,a small masslike density is present with associated architecturaldistortion. This is not confirmed on the MLO view. There are no malignant type calcifications, lymphadenopathy, skin thickening or nippleretraction. The left breast is unremarkable. Impression: [facility]iology will attempt to obtain the patient'sprevious mammograms from [facility] to determine stability in a masslikedensity in the lateral aspect of the right breast. If previous films cannotbe obtained, or this represents a new finding, then additionaldiagnostic imaging will be required. Report revised on 08/19/2007 3:31:50 PM by CADENCE GROVES Assessment BIRADS: 0-Incomplete: Need additional imagingevaluation Recommendation: Old films for comparison Dictated by: CADENCE GROVES Electronically signed by: CADENCE GROVES 08/12/2007 19:40 Transcribed: 08/12/2007 16:28 DKT us History Conversion MAMMO ORDERABLES Edited documented in this encounter Visit Diagnoses Diagnosis Other screening mammogram documented in this encounter
--- OUTSIDE RECORDS SUMMARY | 2024-08-27 16:59 | XMS_ITS | Clinical Summary ---
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 Gender Identity Not on file Sexual Orientation Not on file Plan of Treatment Health Maintenance Due Date Last Done Comments DTAP/TDAP/TD VACCINES (1 - Tdap) 1983 CERVICAL CANCER SCREENING 1994 COLORECTAL SCREENING 2009 Colorectal Cancer Screening 2009 FIT-DNA Q 3 years 2009 FIT/FOBT Q 1 year 2009 Flex Sig/CT Colonography Q 5 years 2009 BREAST CANCER SCREENING 08/23/2009 08/23/19 09, 08/10/2007 ZOSTER VACCINE (1 of 2) 2014 INFLUENZA VACCINE (#1) 2024 RSV VACCINE (60+ or ) (1 - 1-dose 75+ series) 2039 HEPATITIS B VACCINES Aged Out No long er eligible based on patient's age to complete this topic PNEUMOCOCCAL VACCINE 0-64 YEARS Aged Out No longer eligible b ased on patient's age to complete this topic Procedures Procedure Name Priority Date/Time Associated Diagnosis Comments MAMMO DIAGNOSTIC BILATERAL W OR WO CAD Routine 08/23/2008 1:47 PM HOGSHEAD PRESS OPERATOR from Last 3 Months or Most Recently Relevant to Health Maintenance Results * MAMMO DIGITAL DIAG BILAT (08/23/2008 1:47 PM HOGSHEAD PRESS OPERATOR) Anatomical Region Laterality Modality Breast Bilateral Other 08/23/2008 1:47 PM HOGSHEAD PRESS OPERATOR Narrative 08/24/2008 10:19 AM HOGSHEAD PRESS OPERATOR [address] [place], [place] [address] Admit Date: 08/23/2008 VALDEZ FRANCOIS Sex: F Admit Prov: KRYS RAHEEM Sharp Date: 1965 Primary Care Prov: RAHEEM HICKMAN CMRN: [id number] Room: [facility] SSN: [id number] IMAGING SERVICES Ordering Prov: KRYS RAHEEM Sharp Accession Number: [id number] Interpretation BILATERAL FULL FIELD DIGITAL DIAGNOSTIC MAMMOGRAMS WITH COMPUTER AIDED DIAGNOSIS AND RIGHT BREAST ULTRASOUND Date: 08/23/2008 History: Intermittent bilateral breast tenderness. Comparison: July 2007 examination from [facility] Breast composition: Scattered fibroglandular densities. Findings: A [...] AMK Procedure Note Leonel Michelle - 08/24/2008 [id number] [place], [place] [address] Admit Date: 08/23/2008 TSER[place] VALDEZ Viki Sex: F Admit Prov: RAHEEM HICKMAN Date: 1965 Primary Care Prov: RAHEEM HICKMAN CMRN: [id number] Room: [facility] SSN: [id number] IMAGING SERVICES Ordering Prov: RAHEEM HICKMAN Interpretation BILATERAL FULL FIELD DIGITAL DIAGNOSTIC MAMMOGRAMS WITH COMPUTERAIDED DIAGNOSIS AND RIGHT BREAST ULTRASOUND Date: 08/23/2008 History: Intermittent bilateral breast tenderness. Comparison: July 2007 examination from [facility] Breast composition: Scattered fibroglandular densities. Findings: A [...] Raheem Hickman DO MAMMO ORDERABLES Final Result from Last 3 Months or Most Recently Relevant to Health Maintenance
--- OUTSIDE RECORDS SUMMARY | 2024-08-27 16:59 | XMS_ITS | Referral Summary ---
Author Organization [facility] [address] Address [address] [place] [phone] Care Team Providers Care Electrical Lineworker Name Role Phone Babak Traylor MD [facility] [place] Unavailable Encounters Date Type Department Care Team Description 06/30/2024 ACO Quality [facility] Care [address] [address] Irina Esparza 06/30/2024 Orders Only [address] [address] Pierre Harris MD 06/06/2024 ACO Outreach [address] [address] Suze Ceballos MA 06/04/2024 ACO Clinical Pharmacist [address] [address] Rosetta Moffett RPh 06/02/2024 Telephone [facility] Primary Care at [address] [address] Rosetta Moffett RPh Med Management ([facility] Statin Gaps in Care) 06/02/2024 ACO Clinical Pharmacist [address] [address] Rosetta Moffett RPh from Last 3 Months Allergies Active Allergy Reactions Criticality Noted Date [...] 09/26/2021 Assessment & Plan (09/26/2021 12:25 PM DEPUTY CHIEF COUNSEL): zofran PRN for nausea; will consider gall [...] 09/04/2021 Assessment & Plan (09/05/2021 10:34 AM DEPUTY CHIEF COUNSEL): A initial Medicare Annual Wellness Visit has [...] associat ed with type 2 diabetes mellitus (CMS/HCC) 11/09/2018 Thyroid nodule 09/23/2018 Overview (09/04/2021): Last [...] PCP Assessment & Plan (08/21/2023 9:19 AM DEPUTY CHIEF COUNSEL): Patient is complaining of bilateral breast pain [...] up. Assessment & Plan (09/14/2022 2:07 PM DEPUTY CHIEF COUNSEL): Will try to resume Ladi Discussed insulin, and its place in type 2 diabetes. We will consider, but I want to get the Trulicity going again Switching from lisinopril to losartan Watch BP after switch. Will want BP to settle in 120's/70's Assessment & Plan (06/10/2022 10:59 PM DEPUTY CHIEF COUNSEL): Continuing lisinopril, Trulicity, Jardiance Obesity 05/28/2005 Overview (09/04/2021): Last Assessment & Plan: Counseled on weight loss to reduce CVD risk factors Assessment & Plan (11/29/2021 1:36 PM CDT): BMI Follow-up includes: nutrition counseling, exercise counseling and education provided. IBS (irritable bowel syndrome) 05/14/2005 Lupus Resolved Problems Problem Noted Date Diagnosed Date Resolved Date Gestational diabetes 10/12/2009 024 Immunizations Name Administration Dates Next Due Influenza, Quadrivalent, Spl it, Intramuscular 07/06/2021,09/13/2020,05/15/2016 Influenza, Quadrivalent, Spl it, Preservative Free, Intramuscular 04/14/2019 Influenza, Trivalent, IM (MDV) 05/10/2014 Influenza, Trivalent, Preser vative Free, Intramuscular 09/09/2012 Influenza, Unspecified 04/22/2023(Deferr ed: Patient Refused),09/10/2022(Deferred: Patient Refused - unsure if she got it elsewhere),07/21/2021(Deferred: Patient Refused) Pneumococcal Conjugate 7-Valent 04/29/2014 Pneumococcal Polysaccharide PPV23 11/18/2018 Tdap 07/21/2015 Social History Tobacco Use Types Packs/Day Years [...] and Family Not on file 09/05/2021 Attends Christianity Services Not on file 09/05 Active Member [...] staff should administer the PHQ-9) 0 06/03/2023 [facility] - Occupational Stress Questionnaire Answer Date Recorded [...] money to buy more. Never true 09/05/19 Within the past 12 months, t he [...] place to sleep or slept in a alf (including now)? No 09/05/2021 Education Answer Date Recorded What is the highest level of school you have completed or the highest degree you have received? 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43 08/21/2023 8:48 AM DEPUTY CHIEF COUNSEL Plan of Treatment Not on file Procedures Procedure Name Priority Date/Time Associated Diagnosis Comments HM HEMOGLOBIN A1C Routine 03/22/2024 12: 44 PM CDT DIAGNOSTIC MAMMOGRAM BILATERAL W ANABEL Schedule Routine, Read Routine (OP Routine) 09/11/2023 8:57 AM DEPUTY CHIEF COUNSEL Breast pain HEPATITIS C ANTIBODY Routine 08/12/2023 12:09 PM DEPUTY CHIEF COUNSEL EGFR Routine 05/08/2023 8:38 AM CDT Hypertension associated with diabetes (HCC) LIPID PANEL Routine 05/08/2023 8:38 AM CDT Hyperlipidemia with target LDL less than 100 ALBUMIN CREATININE RATIO, URINE Routine 05/08/2023 8:38 AM CDT Hypertension associated with diabetes (HCC) DIABETES EYE EXAM Routine 11/07/2022 HM COLONOSCOPY Routine 05/08/2020 from Last 3 Months or Most Recently Relevant to Health Maintenance Results * HEMOGLOBIN A1C (03/22/2024 12:44 PM CDT) Historical Provider HEALTH MAINTENANCE Final Result * DIAGNOSTIC MAMMOGRAM BILATERAL W ANABEL (09/11/2023 8:57 AM DEPUTY CHIEF COUNSEL) Anatomical Region Laterality Modality Breast Bilateral Mammography 09/11/2023 9:28 AM DEPUTY CHIEF COUNSEL Impressions 09/11/2023 9:28 AM DEPUTY CHIEF COUNSEL 1. No suspicious finding on either mammogram [...] David Winters M.D. Narrative 09/11/2023 9:28 AM DEPUTY CHIEF COUNSEL EXAMINATION: DIAGNOSTIC MAMMOGRAM BILATERAL W ANABEL, US [...] or cystic mass or other suspicious finding. Dahiana Ortiz NP IMG MAMMO PROCEDURES Final Resul t * Hepatitis C antibody Blood (08/12/2023 12:09 PM DEPUTY CHIEF COUNSEL) Hep C Ab Nonreactive Nonreactive JOSELINE [facility] Comment: Interpretive Data Nonreactive: Antibodies to [...] on 2019. Blood 08/12/2023 12:0 9 PM DEPUTY CHIEF COUNSEL 08/12/2023 2:38 PM DEPUTY CHIEF COUNSEL Elizabeth Silveira MD LAB MICROBIOLOGY - GENERAL ORDER DAVID Final Result [facility] [address] Department of Laboratories [place], [place] [id number] * eGFR (05/08/2023 8:38 AM CDT) eGFR [...] Traylor MD LAB BLOOD ORDERABLES Final Result JOSELINE [address] [place] [address] * (ABNORMAL) Albumin Creatinine Ratio, Urine (05/08/2023 8:38 AM CDT) Albumin Ur 31.8 mg/L Comment: Interpretive Data No reference range established. Current interpretive data was last revised 2018. Creatinine Ur 103.9 mg/dL JOSELINE GUZMAN Comment: Interpretive Data No reference range established. Current interpretive data was last revised 2018. Albumin Creatinine Ratio, Ur 31(H) 1 - 29 mg/g JOSELINE GUZMAN Urine 05/08/2023 8:38 AM CDT 05/08/2023 2:47 PM CDT Babak Traylor MD LAB URINE ORDERABLES Final Result JOSELINE [address] [facility] [place] [address] * (ABNORMAL) Lipid panel (05/08/2023 8:38 AM [...] last revised on 2018. Chol/HDL ratio 4 JOSELINE GUZMAN Blood 05/08/2023 8:38 AM CDT 05/08/2023 2:47 PM CDT Babak Traylor MD LAB BLOOD ORDERABLES Final Result Performing Organization Address City/State/[facility] Co de Phone Number JOSELINE [phone] [place] [address] * DIABETES EYE EXAM (11/07/2022) Historical Provider HEALTH MAINTENANCE Final Result * COLONOSCOPY (05/08/2020) Historical Provider HEALTH MAINTENANCE Final Result from Last 3 Months or Most Recently Relevant to Health Maintenance Insurance MEDICARE SOLUTIONS MEDICARE SOLUTIONS MEDICARE [place] [employer] Communication Care Teams Electrical Lineworker Relationship Specialty Start Date End Date Babak Traylor MD [address] [place] [id number] PCP - General Family Medicine 09/04/21 Ellen Leonard Sr., [address] [place] [phone] Consulting Physician Gastroenterology 09/04/21
--- OUTSIDE RECORDS SUMMARY | 2024-08-27 16:59 | XMS_ITS | Patient Health Summary ---
Author Organization [facility] [employer] Address [address] [place] [address] Care Team Providers Care Syrup Mixer Name Role Phone Helen Ramirez DO Unavailable Nona Ayers MD Primary Care Provider [phone] Tono Rosado MD Unavailable [phone] Note from [facility],non-owned Affiliates and Associated Physician Practices is amultiple site organization consisting of ambulatory clinics and hospital sitesin [place], [place], [place]. This disclosure is being madepursuant to the Care Everywhere program and may not contain all information available regarding this patient. Last updated 18.[facility] Allergies No known active allergies* Metformin(GI Discomfort),Inactive Medications * Be aware that medications may not be up to date on this document. Alwaysverify current medications with the patient. * multivitamin daily (THERAGRAN) tablet Take 1 Tab by mouth daily with food. * lisinopril (PRINIVIL; ZESTRIL) 20 MG tablet Take 20 mg by mouth once daily. * traMADol (ULTRAM) 50 MG tablet Take 50 mg by mouth every 6 hours as needed. * hydrochlorothiazide (HYDRODIURIL) 12.5 MG TABS Take 12.5 mg by mouth once daily * methotrexate 2.5 MG tablet(Started 02/09/2015) Take 6 Tabs by mouth every 7 days 2 refills left * folic acid (FOLVITE) 1 MG tablet(Started 02/09/2015) Take 5 Tabs by mouth every 7 days 3 days after taking the methotrexate. 2 refills left Active Problems Problem Noted Date Diagnosed Date Migraine 10/12/2009 Gestational diabetes 10/12/2009 Dysmetabolic syndrome X 08/03/2009 Vulvitis 12/07/2008 Dysthymia 12/07/2008 High blood pressure 11/21/2008 Colon polyps 11/21/2008 Obesity 05/28/2005 IBS (irritable bowel syndrome) 05/14/2005 Fibromyalgia Resolved Problems Problem Noted Date Diagnosed Date [...] Comments Blood Pressure 145/95 09/11/2015 10:00 AM [facility] Pulse 77 09/11/2015 10:21 AM [facility] Temperature 35.9 C (96.6 F) 09/11/2015 9:42 AM [facility] Respiratory Rate 16 09/11/2015 10:21 AM [facility] Oxygen Saturation 100% 09/11/2015 10:21 AM [facility] Inhaled Oxygen Concentration - - Weight 92.1 kg (203 lb) 09/11/2015 9:03 AM [facility] Height 165.1 cm (5' 5 ) 09/11/2015 9:03 AM [facility] Body Mass Index 33.78 09/11/2015 9:03 AM [facility] Procedures * PATHOLOGY/CYTOLOGY REPORT ORDER(Performed 09/13/2015) * PATHOLOGY TISSUE EXAM (STL)(Performed 09/11/2015) Performed for Diagnosis unknown * ENDOSCOPY, COLON, SCREENING(Performed 09/11/2015) * COLONOSCOPY SCREEN(Performed 09/11/2015) * ALDOLASE(Performed 01/26/2015) Performed for Myalgia and myositis * CK BLOOD(Performed 01/26/2015) Performed for Myalgia and myositis * GERMAN BLOOD SCREEN W/REFLEX TITER(Performed 01/26/2015) Performed for Arthralgia * RHEUMATOID FACTOR BLOOD QUANTITATIVE(Performed 01/26/2015) Performed for Arthralgia * C-REACTIVE PROTEIN(Performed 01/26/2015) Performed for Arthralgia * GERMAN BLOOD SCREEN W/REFLEX TITER(Performed 11/01/2013) Performed for Seronegative arthritis * CYCLIC CITRUL PEPTIDE ANTIBODY IGG/IGA (CCP)(Performed 11/01/2013) Performed for Seronegative arthritis * VITAMIN D 25-HYDROXY(Performed 11/01/2013) Performed for Unspecified vitamin D deficiency * RHEUMATOID FACTOR BLOOD QUANTITATIVE(Performed 11/01/2013) Performed for Seronegative arthritis * ERYTHROCYTE SEDIMENTATION RATE(Performed 11/01/2013) Performed for Seronegative arthritis * C-REACTIVE PROTEIN(Performed 11/01/2013) Performed for Seronegative arthritis * COMPREHENSIVE METABOLIC PANEL(Performed 11/01/2013) Performed for Medication monitoring encounter * CBC W AUTO DIFFERENTIAL(Performed 11/01/2013) Performed for Medication monitoring encounter * XR KNEE BILAT 3VW(Performed 11/15/2011) Performed for Seronegative arthritis * XR HAND BILAT 2VW(Performed 11/15/2011) Performed for Seronegative arthritis * C-REACTIVE PROTEIN(Performed 11/15/2011) Performed for Seronegative arthritis * CARDIAC EKG ORDER(Performed 10/23/2011) * CT HEAD WO CONTRAST(Performed 10/22/2011) Performed for Headache * URINALYSIS REFLEX TO MICROSCOPIC NO CULTURE(Performed 10/22/2011) * PTT(Performed 10/22/2011) * PT-INR(Performed 10/22/2011) * MYOGLOBIN BLOOD(Performed 10/22/2011) * TROPONIN I(Performed 10/22/2011) * COMPREHENSIVE METABOLIC PANEL(Performed 10/22/2011) * CBC W AUTO DIFFERENTIAL(Performed 10/22/2011) * XR CHEST 2VW(Performed 10/22/2011) * EKG 12-LEAD(Performed 10/22/2011) * RHEUMATOID FACTOR BLOOD QUANTITATIVE(Performed 10/11/2011) Performed for Myofascial pain * GERMAN BLOOD SCREEN W/REFLEX TITER(Performed 10/11/2011) Performed for Myofascial pain * COMPREHENSIVE METABOLIC PANEL(Performed 10/11/2011) Performed for Medication monitoring encounter * CBC W AUTO DIFFERENTIAL(Performed 10/11/2011) Performed for Medication monitoring encounter * TSH(Performed 10/11/2011) Performed for High Blood Pressure * C-REACTIVE PROTEIN(Performed 10/11/2011) Performed for Myofascial pain * CT ABDOMEN PELVIS W CONTRAST(Performed 05/13/2011) Performed for Abdominal pain, unspecified site * C-PEPTIDE(Performed 07/30/2010) Performed for Urinary frequency, Dysmetabolic syndrome X * HEMOGLOBIN A1C(Performed 07/30/2010) Performed for Urinary frequency, Dysmetabolic syndrome X * COMPREHENSIVE METABOLIC PANEL(Performed 07/30/2010) Performed for Urinary frequency, Dysmetabolic syndrome X * ENDOSCOPY ORDER(Performed 05/16/2010) * LAB RESULTS ORDER(Performed 05/16/2010) * NM MYOCARD PERF REST STRESS(Performed 05/14/2010) Performed for Unspecified chest pain * CARDIAC STRESS TEST PHARMACOLOGICAL ORDER(Performed 05/14/2010) * MRI BRAIN WO CONTRAST(Performed 05/11/2010) Performed for Dyspnea * AMBULATORY CARDIOLOGY ORDER(Performed 05/08/2010) * C-PEPTIDE(Performed 05/08/2010) Performed for Dysmetabolic syndrome X * HEMOGLOBIN A1C(Performed 05/08/2010) Performed for Dysmetabolic syndrome X * TSH(Performed 05/08/2010) Performed for Dysmetabolic syndrome X, Headache, Black stool, Dyspnea, Chest pain * T4 FREE(Performed 05/08/2010) Performed for Dysmetabolic syndrome X, Headache, Black stool, Dyspnea, Chest pain * VITAMIN D 25-HYDROXY(Performed 05/08/2010) Performed for Dysmetabolic syndrome X, Headache, Black stool, Dyspnea, Chest pain * LIPID PROFILE(Performed 05/08/2010) Performed for Dysmetabolic syndrome X, Headache, Black stool, Dyspnea * TSH(Performed 05/08/2010) Performed for Dysmetabolic syndrome X, Headache, Black stool, Dyspnea, Chest pain * COMPREHENSIVE METABOLIC PANEL(Performed 05/08/2010) Performed for Dysmetabolic syndrome X, Headache, Black stool, Dyspnea, Chest pain * CBC W AUTO DIFFERENTIAL(Performed 05/08/2010) Performed for Dysmetabolic syndrome X, Headache, Black stool, Dyspnea, Chest pain * EKG 12-LEAD(Performed 05/08/2010) Performed for Chest pain * MAMMO LEFT DIAGNOSTIC(Performed 01/17/2010) Performed for Abnormal Mammogram * CHLAMYDIA + GC AMPLIFIED PROBE(Performed 01/10/2010) Performed for High Risk Sexual Behavior * URINALYSIS - POINT OF CARE(Performed 01/10/2010) Performed for Painful Urination * MAMMO BILAT SCREENING(Performed 01/10/2010) Performed for Other Screening Mammogram * TSH(Performed 10/12/2009) Performed for Ganglion * COMPREHENSIVE METABOLIC PANEL(Performed 10/12/2009) Performed for Ganglion * CBC W AUTO DIFFERENTIAL(Performed 10/12/2009) Performed for Ganglion * HEMOGLOBIN A1C(Performed 06/27/2009) Performed for Diabetes, High Blood Pressure, Cephalgia * COMPREHENSIVE METABOLIC PANEL(Performed 06/27/2009) Performed for Diabetes, High Blood Pressure, Cephalgia * C-PEPTIDE(Performed 06/27/2009) Performed for Diabetes, High Blood Pressure, Cephalgia * TSH(Performed 10/12/2008) * HERPES II, TYPE SPECIFIC(Performed 10/12/2008) * PAP IG LB CT+GC RFLX HPV HR ASCU(Performed 10/12/2008) * GLUCOSE - POINT OF CARE(Performed 10/07/2008) Performed for Unspecified, Hemorrhage of Gastrointestinal Tract * GLUCOSE - POINT OF CARE(Performed 10/07/2008) Performed for Unspecified, Hemorrhage of Gastrointestinal Tract * CBC W AUTO DIFFERENTIAL(Performed 10/07/2008) Performed for Unspecified, Hemorrhage of Gastrointestinal Tract * GLUCOSE - POINT OF CARE(Performed 10/06/2008) Performed for Unspecified, Hemorrhage of Gastrointestinal Tract * GLUCOSE - POINT OF CARE(Performed 10/06/2008) Performed for Unspecified, Hemorrhage of Gastrointestinal Tract * GLUCOSE - POINT OF CARE(Performed 10/06/2008) Performed for Unspecified, Hemorrhage of Gastrointestinal Tract * GLUCOSE - POINT OF CARE(Performed 10/06/2008) Performed for Unspecified, Hemorrhage of Gastrointestinal Tract * BASIC METABOLIC PANEL (CALCIUM TOTAL)(Performed 10/06/2008) Performed for Unspecified, Hemorrhage of Gastrointestinal Tract * MAGNESIUM BLOOD(Performed 10/06/2008) Performed for Unspecified, Hemorrhage of Gastrointestinal Tract * CBC W AUTO DIFFERENTIAL(Performed 10/06/2008) Performed for Unspecified, Hemorrhage of Gastrointestinal Tract * GLUCOSE - POINT OF CARE(Performed 10/05/2008) Performed for Unspecified, Hemorrhage of Gastrointestinal Tract * GLUCOSE - POINT OF CARE(Performed 10/05/2008) Performed for Unspecified, Hemorrhage of Gastrointestinal Tract * URINALYSIS REFLEX TO MICROSCOPIC NO CULTURE(Performed 10/05/2008) * TYPE + SCREEN PANEL(Performed 10/05/2008) * PTT(Performed 10/05/2008) * PT-INR(Performed 10/05/2008) * CBC W AUTO DIFFERENTIAL(Performed 10/05/2008) * GROSS + MICRO EXAM(Performed 09/27/2008) Performed for Screening for Unspecified Condition * VITAMIN D 25-HYDROXY(Performed 08/11/2008) Performed for Malaise and Fatigue * LIPID PROFILE W TCHOL/HDL(Performed 08/11/2008) Performed for Malaise and Fatigue, Glucose Intolerance * HEMOGLOBIN A1C(Performed 08/11/2008) Performed for Malaise and Fatigue, Glucose Intolerance * C-PEPTIDE(Performed 08/11/2008) Performed for Malaise and Fatigue, Glucose Intolerance * GENERAL HEALTH PANEL(Performed 08/11/2008) Performed for Malaise and Fatigue Results * PATHOLOGY/CYTOLOGY REPORT ORDER (09/13/2015 1:51 AM [facility]) Narrative 09/13/2015 1:51 AM [facility] Ordered by an unspecified provider. Scanned Document LAB - PATHOLOGY/CYTO LOGY ORDERABLES * GROSS + MICRO EXAM (STL) (09/11/2015 9:32 AM [facility]) Case Report Surgical Pathology Report Case: [id number] Authorizing Provider: Willa Rincon DO Collected: 09/11/2015 09:32 AM Ordering Location: [facility] Received: 09/11/2015 10:53 AM Pathologist: Vaughn Barrett MD Specimen: Colon Ascending Biopsy 09/12/2015 3:42 PM [facility] Final Diagnosis 1. Colon, ascending, biopsy: -- Chronic interstitial inflammation, mild, non-specific ALEXANDER/jesus 09/12/2015 3:42 PM [facility] Gross Description Received in formalin in a container labeled Ricci Cagle, colon ascending biopsy. The container holds multiple fleming tissue fragments measuring from 0.1 cm up to 0.5 cm. Specimen is entirely submitted in a cassette labeled A1. DYT/arm 09/12/2015 3:42 PM [facility] Microscopic Description Sections of the ascending colon biopsy show fragments of colonic mucosa with increased number of chronic inflammatory cells within the stroma. However, cryptitis, crypt abscesses, granulomas or malignancy are not seen. ALEXANDER/jesus 09/12/2015 3:42 PM [facility] Pathology/Cytolo gy COLONIC BIOPSY SPECIMEN / Unknown 09/11/2015 9:32 AM [facility] 09/11/2015 10:53 AM [facility] Willa Rincon DO LAB - PATHOLOGY/CYTO LOGY ORDERABLES [facility] [id number] [address] [place] [address] * ENDOSCOPY, COLON, SCREENING (09/11/2015 9:20 AM [facility]) Report Endoscopy POC _ Patient Name: Valdez Cagle Procedure Date: 09/11/2015 9:20 AM Date of : 1965 Admit Type: Outpatient Age: 50 Gender: Female Attending MD: Willa Rincon DO _ Procedure: Colonoscopy Indications: Screening for colorectal malignant neoplasm, High risk colon cancer surveillance: Personal history of colonic polyps, Incidental - Change in bowel habits Providers: Willa Rincon DO (Doctor) Referring MD: Nona Zhou MD [...] 1 week. Procedure Code(s): --- Professional --- 06642, Colonoscopy, flexible; with biopsy, single or multiple --- Technical --- 29105, Colonoscopy, flexible; with biopsy, single or multiple [...] without bleeding CPT copyright 2014 [employer] [place] [employer]. All rights reserved. The codes documented in this report are preliminary and upon clerical production worker review may be revised to meet current compliance requirements. ___ Willa Rincon DO 09/11/2015 9:40:41 AM This report has been signed electronically. Number of Addenda: 0 Note Initiated On: 09/11/2015 9:20 AM [facility] 09/11/2015 9:20 AM [facility] Willa Rincon DO GI PROCEDURE ORDERAB LES [facility] [place]ason [id number] * RHEUMATOID FACTOR BLOOD QUANTITATIVE (01/26/2015 12:10 PM CDT) Only the most recent of3 resultswithin the time period is included. Rheumatoid Factor <10 <15 IU/mL [facility] INSURANCE BILL Blood specimen (specimen) BLOOD SPECIMEN / Unknown 01/26/2015 12:10 PM CDT 01/26/2015 6:07 PM CDT Narrative Resulting Agency Comment [facility] [address] [phone] Rosy Brisenogiudice RECYCLING COORDINATOR-SHAREBROKER LAB - CHEMISTRY ORDERABLES Performing Organization Address City/[facility]/ZIP Co de Phone Number [facility] INSURANCE BILL * (ABNORMAL) C-REACTIVE PROTEIN (01/26/2015 12:10 PM CDT) Only the most recent of4 resultswithin the time period is included. C-Reactive Protein 0.48(H) <0.30 mg/dL [facility] INSURANCE BILL Blood specimen (specimen) BLOOD SPECIMEN / Unknown 01/26/2015 12:10 PM CDT 01/26/2015 6:07 PM CDT Narrative Resulting Agency Comment [facility] [address] [phone] Rosy Duboseo Delgiudice RECYCLING COORDINATOR-SHAREBROKER LAB - CHEMISTRY ORDERABLES [facility] INSURANCE BILL * GERMAN BLOOD SCREEN W/REFLEX TITER (01/26/2015 12:10 PM CDT) Only the most recent of3 resultswithin the time period is included. GERMAN Negative Negative [facility] INSURANCE BILL Blood specimen (specimen) BLOOD SPECIMEN / Unknown 01/26/2015 12:10 PM CDT 01/26/2015 6:07 PM CDT Narrative Resulting Agency Comment [facility] [address] [phone] Rosy Quicho Delgiudice RECYCLING COORDINATOR-SHAREBROKER LAB - CHEMISTRY ORDERABLES [facility] INSURANCE BILL * ALDOLASE (01/26/2015 12:10 PM CDT) Aldolase 5.4 3.3 - 10.3 U/L [facility] INSURANCE BILL Blood specimen (specimen) BLOOD SPECIMEN / Unknown 01/26/2015 12:10 PM CDT 01/26/2015 6:07 PM CDT Narrative Resulting Agency Comment [address] [phone] Rosy Quicho Delgiudice RECYCLING COORDINATOR-SHAREBROKER LAB - CHEMISTRY ORDERABLES [facility] INSURANCE BILL * CK BLOOD (01/26/2015 12:10 PM CDT) CK 71 35 - 232 U/L [facility] INSURANCE BILL Blood specimen (specimen) BLOOD SPECIMEN / Unknown 01/26/2015 12:10 PM CDT 01/26/2015 6:07 PM CDT Narrative Resulting Agency Comment [facility] [address] [place] [phone] Rosy Quicho Delgiudice RECYCLING COORDINATOR-SHAREBROKER LAB - CHEMISTRY ORDERABLES [facility] INSURANCE BILL * CYCLIC CITRUL PEPTIDE ANTIBODY IGG/IGA (CCP) (11/01/2013 3:30 PM CDT) [facility]CP Antibodies IgG/IgA 19 0 - 19 units [facility] INSURANCE BILL Comment: Negative <20 Weak positive 20 - 39 Moderate positive 40 - 59 Strong positive >59 BLOOD SPECIMEN / Unknown 11/01/2013 3:30 PM CDT 11/01/2013 10:36 PM CDT Narrative Resulting Agency Comment [facility] [address] [phone] Tono Rosado MD LAB - SEROLOGY OR DERABLES [facility] INSURANCE BILL * VITAMIN D 25-HYDROXY (11/01/2013 3:30 PM CDT) Only the most recent of3 resultswithin the time period is included. Vitamin D, 25 Hydroxy 30.8 30.0 - 100.0 ng/mL [facility] INSURANCE BILL Comment: Vitamin D deficiency has been defined by the [place] [employer] and an Endocrine Society practice guideline as a level of serum 25-OH vitamin D less than 20 ng/mL (1,2). The Endocrine Society went on to further define vitamin D insufficiency as a level between 21 and 29 ng/mL (2). 1. IOM ([place] [employer]). 2010. Dietary reference intakes for calcium and D. [place]: The National Academies Press. 2. Tom MF, Tracey [place], Brandee BOWLING, et al. Evaluation, treatment, and prevention of vitamin D deficiency: an Endocrine Society clinical practice guideline. JCEM. 2010; 96(7):1911-30. Blood specimen (specimen) BLOOD SPECIMEN / Unknown 11/01/2013 3:30 PM CDT 11/01/2013 10:36 PM CDT Narrative Resulting Agency Comment [facility] [address] [phone] Tono Rosado MD LAB - CHEMISTRY O RDERABLES [facility] INSURANCE BILL * SED RATE WESTERGREN (11/01/2013 3:30 PM CDT) Erythrocyte Sedimentation Rate Westergren 6 0 - 32 mm/hr [facility] INSURANCE BILL Blood specimen (specimen) BLOOD SPECIMEN / Unknown 11/01/2013 3:30 PM CDT 11/01/2013 10:36 PM CDT Narrative Resulting Agency Comment [facility] [address] [phone] Authorizing Provider Result Clary Rosado MD LAB - HEMATOLOGY ORDERABLES [facility] INSURANCE BILL * CBC W AUTO DIFFERENTIAL (11/01/2013 3:30 PM CDT) Only the most recent of8 resultswithin the time period is included. WBC 7.9 3.4 - 10.8 x10E3/uL [facility] INSURANCE BILL RBC 4.56 3.77 - 5.28 x10E6/uL [facility] INSURANCE BILL Hemoglobin 13.0 11.1 - 15.9 g/dL [facility] INSURANCE BILL Hematocrit 38.1 34.0 - 46.6 % [facility] INSURANCE BILL MCV 84 79 - 97 fL [facility] INSURANCE BILL MCH 28.5 26.6 - 33.0 pg [facility] INSURANCE BILL MCHC 34.1 31.5 - 35.7 g/dL [facility] INSURANCE BILL RDW 13.8 12.3 - 15.4 % [facility] INSURANCE BILL Platelet Count 286 155 - 379 x10E3/uL [facility] INSURANCE BILL Granulocytes % 68 40 - 74 % [facility] INSURANCE BILL Lymphocytes % 26 14 - 46 % [facility] INSURANCE BILL Monocytes % 5 4 - 12 % [facility] INSURANCE BILL Eosinophils % 1 0 - 5 % [facility] INSURANCE BILL Basophils % 0 0 - 3 % [facility] INSURANCE BILL Immature Cells NOT NEEDED [facility] INSURANCE BILL Comment:Ancillary determined the test is not needed Granulocytes Absolute 5.4 1.4 - 7.0 x10E3/uL [facility] INSURANCE BILL Lymphocytes Absolute 2.1 0.7 - 3.1 x10E3/uL [facility] INSURANCE BILL Monocytes Absolute 0.4 0.1 - 0.9 x10E3/uL [facility] INSURANCE BILL Eosinophils Absolute 0.1 0.0 - 0.4 x10E3/uL [facility] INSURANCE BILL Basophils Absolute 0.0 0.0 - 0.2 x10E3/uL [facility] INSURANCE BILL Immature Granulocytes 0 0 - 2 % [facility] INSURANCE BILL Immature Granulocytes Absolute 0.0 0.0 - 0.1 x10E3/uL [facility] INSURANCE BILL nRBC NOT NEEDED [facility] INSURANCE BILL Comment:Ancillary determined the test is not needed Comment Hematology NOT NEEDED [facility] INSURANCE BILL Comment:Ancillary determined the test is not needed Blood specimen (specimen) BLOOD SPECIMEN / Unknown 11/01/2013 3:30 PM CDT 11/01/2013 10:36 PM CDT Narrative Resulting Agency Comment [facility] [address] [phone] Authorizing Provider Result Clary Rosado MD LAB - HEMATOLOGY ORDERABLES [facility] INSURANCE BILL * (ABNORMAL) COMPREHENSIVE METABOLIC PANEL (11/01/2013 3:30 PM CDT) Only the most recent of7 resultswithin the time period is included. Glucose 141(H) 65 - 99 mg/dL [facility] INSURANCE BILL BUN 15 6 - 24 mg/dL [facility] INSURANCE BILL Creatinine 0.94 0.57 - 1.00 mg/dL [facility] INSURANCE BILL eGFR by MDRD 71 >59 mL/min/1.7 3 [facility] INSURANCE BILL eGFR by MDRD 82 >59 mL/min/1.7 3 [facility] INSURANCE BILL BUN/Creatinine Ratio 16 9 - 23 [facility] INSURANCE BILL Sodium 141 134 - 144 mmol/L [facility] INSURANCE BILL Potassium 3.8 3.5 - 5.2 mmol/L [facility] INSURANCE BILL Chloride 103 97 - 108 mmol/L [facility] INSURANCE BILL CO2 22 19 - 28 mmol/L [facility] INSURANCE BILL Calcium 9.4 8.7 - 10.2 mg/dL [facility] INSURANCE BILL Protein Total 6.5 6.0 - 8.5 g/dL [facility] INSURANCE BILL Albumin 4.1 3.5 - 5.5 g/dL [facility] INSURANCE BILL Globulin Total 2.4 1.5 - 4.5 g/dL [facility] INSURANCE BILL Albumin/Globulin Ratio 1.7 1.1 - 2.5 [facility] INSURANCE BILL Bilirubin Total 0.2 0.0 - 1.2 mg/dL [facility] INSURANCE BILL Alkaline Phosphatase 71 39 - 117 IU/L [facility] INSURANCE BILL AST 17 0 - 40 IU/L [facility] INSURANCE BILL ALT 24 0 - 32 IU/L [facility] INSURANCE BILL Blood specimen (specimen) BLOOD SPECIMEN / Unknown 11/01/2013 3:30 PM CDT 11/01/2013 10:36 PM CDT Narrative Resulting Agency Comment [facility] [place] [address] [phone] Tono Rosado MD LAB - CHEMISTRY O RDERABLES [facility] INSURANCE BILL * XR HANDS BILATERAL 2 VIEWS (11/15/2011 3:50 PM CDT) Anatomical Region Laterality Modality Wrist / Hand, Upper Extremity Ra diographic Imaging 11/15/2011 4:06 PM CDT Narrative 11/15/2011 4:39 PM CDT SINGLE AP VIEW OF THE RIGHT HAND SINGLE AP VIEW OF LEFT HAND THREE VIEWS RIGHT KNEE THREE VIEWS LEFT KNEE INDICATION: Right hand pain, left hand pain, right knee pain, left knee pain FINDINGS: RIGHT HAND: There are no erosions or subluxations. There is no degenerative disease. There is no fracture. LEFT HAND: There are no erosions or subluxations. There is no degenerative disease. There is no fracture. RIGHT KNEE: There is no degenerative disease. There is no fracture or malalignment. There is no joint effusion. LEFT KNEE: There is no degenerative disease. There is no fracture or malalignment. There is no joint effusion. Procedure Note Ricci Becerra MD - 11/15/2011 SINGLE AP VIEW OF THE RIGHT HAND SINGLE AP VIEW OF LEFT HAND THREE VIEWS RIGHT KNEE THREE VIEWS LEFT KNEE INDICATION: Right hand pain, left hand pain, right knee pain, left knee pain FINDINGS: RIGHT HAND: There are no erosions or subluxations. There is no degenerative disease. There is no fracture. LEFT HAND: There are no erosions or subluxations. There is no degenerative disease. There is no fracture. RIGHT KNEE: There is no degenerative disease. There is no fracture or malalignment. There is no joint effusion. LEFT KNEE: There is no degenerative disease. There is no fracture or malalignment. There is no joint effusion. Tono Rosado MD DIAGNOSTIC IMAGIN G ORDERABLES * XR KNEE BILAT 3 VIEWS (11/15/2011 3:50 PM CDT) Anatomical Region Laterality Modality Lower Extremity Radiographic Samreen ging 11/15/2011 4:06 PM CDT Narrative 11/15/2011 4:39 PM CDT SINGLE AP VIEW OF THE RIGHT HAND SINGLE AP VIEW OF LEFT HAND THREE VIEWS RIGHT KNEE THREE VIEWS LEFT KNEE INDICATION: Right hand pain, left hand pain, right knee pain, left knee pain FINDINGS: RIGHT HAND: There are no erosions or subluxations. There is no degenerative disease. There is no fracture. LEFT HAND: There are no erosions or subluxations. There is no degenerative disease. There is no fracture. RIGHT KNEE: There is no degenerative disease. There is no fracture or malalignment. There is no joint effusion. LEFT KNEE: There is no degenerative disease. There is no fracture or malalignment. There is no joint effusion. Procedure Note Ricci Becerra MD - 11/15/2011 SINGLE AP VIEW OF THE RIGHT HAND SINGLE AP VIEW OF LEFT HAND THREE VIEWS RIGHT KNEE THREE VIEWS LEFT KNEE INDICATION: Right hand pain, left hand pain, right knee pain, left knee pain FINDINGS: RIGHT HAND: There are no erosions or subluxations. There is no degenerative disease. There is no fracture. LEFT HAND: There are no erosions or subluxations. There is no degenerative disease. There is no fracture. RIGHT KNEE: There is no degenerative disease. There is no fracture or malalignment. There is no joint effusion. LEFT KNEE: There is no degenerative disease. There is no fracture or malalignment. There is no joint effusion. Tono Rosado MD DIAGNOSTIC IMAGIN G ORDERABLES * CARDIAC EKG ORDER (10/23/2011 1:51 PM CDT) Narrative Transcriptions Document, Scanned - 10/23/2011 1:51 PM CDT Scanned Document CARDIAC SERVICES ORD ERABLES * CT HEAD NON CONTRAST (10/22/2011 6:17 PM CDT) Anatomical Region Laterality Modality Head Computed Tomogra phy 10/22/2011 6:27 PM CDT Impressions 10/22/2011 6:27 PM CDT Normal unenhanced CT brain. Narrative 10/22/2011 6:[address] Brain Noncontrast Indication: Acute onset of dizziness Comparison: None Technique: 5 mm axial images were obtained from the foramen magnum to the vertex without administration of contrast. Findings: The ventricles and sulci are normal in size for patient's given age. There is no intracranial hemorrhage, mass, or mass-effect. No abnormal extra-axial fluid collections are seen. There is no cortical infarction. The visualized paranasal sinuses and mastoid air cells appear clear. Procedure Note Kristen Stout MD - 10/22/2011 CT Brain Noncontrast Indication: Acute onset of dizziness Comparison: None Technique: 5 mm axial images were obtained from the foramen magnum to the vertex without administration of contrast. Findings: The ventricles and sulci are normal in size for patient's given age. There is no intracranial hemorrhage, mass, or mass-effect. No abnormal extra-axial fluid collections are seen. There is no cortical infarction. The visualized paranasal sinuses and mastoid air cells appear clear. IMPRESSION Normal unenhanced CT brain. Sushil Pereyra MD CT ORDERABLES * URINALYSIS ROUTINE AUTO (10/22/2011 5:30 PM CDT) Only the most recent of2 resultswithin the time period is included. Color UA YELLOW [facility] Character UA CLOUDY [facility] Specific Letcher UA 1.017 1.005 - 1.0300 [facility] pH UA 5.5 4.6 - 8.0 pH Units [facility] Leukocyte UA TRACE Negative /ul [facility] Nitrite UA NEGATIVE Negative [facility] Protein UA NEGATIVE Negative mg/dL [facility] Glucose UA NEGATIVE Normal mg/dL [facility] Ketone UA NEGATIVE Negative mg/dL [facility] Urobilinogen UA 0.2 Normal Tanner Units [facility] Bilirubin UA NEGATIVE Negative mg/dL [facility] Blood UA NEGATIVE Negative /ul [facility] WBC UA 2-5 <5 /HPF [facility] RBC UA 0-2 <5 /HPF [facility] Epithelial Cell UA 2-5 <5 /HPF [facility] Casts UA 0-2 <2 /LPF [facility] Bacteria UA NEGATIVE [facility] Urine specimen (specimen) URINE SPECIMEN OBTAINED BY CLEAN CATCH PROCEDURE / Unknown 10/22/2011 5:30 PM CDT 10/22/2011 5:45 PM CDT Curtis Gonzalez DO LAB - URINALYSIS O RDERABLES Performing Organization Address [facility] de Phone Number [facility] [address] [place] [address] * TROPONIN I (10/22/2011 4:23 PM CDT) Troponin I < 0.015 SEE BELOW ng/mL [facility] Comment: Normal <0.10 [place] 0.10-0.99 Positive >=1.00 Blood specimen (specimen) BLOOD SPECIMEN / Unknown 10/22/2011 4:23 PM CDT 10/22/2011 4:37 PM CDT Narrative [facility] - 10/22/2011 5:09 PM CDT Perform on patients greater than 35* Curtis Gonzalez DO LAB - CHEMISTRY OR DERABLES Performing Organization Address [facility] de Phone Number [facility] [address] [place] [address] * MYOGLOBIN BLOOD (10/22/2011 4:23 PM CDT) Myoglobin 35 <50.0 ng/mL [facility] Blood specimen (specimen) BLOOD SPECIMEN / Unknown 10/22/2011 4:23 PM CDT 10/22/2011 4:37 PM CDT Curtis Gonzalez DO LAB - CHEMISTRY OR DERABLES Performing Organization Address [facility] de Phone Number [facility] [address] [place] [address] * PTT (10/22/2011 4:23 PM CDT) Only the most recent of2 resultswithin the time period is included. PTT 25.7 24.0 - 32.0 seconds [facility] Blood specimen (specimen) BLOOD SPECIMEN / Unknown 10/22/2011 4:23 PM CDT 10/22/2011 4:37 PM CDT Curtis Moshercaro LAB - COAGULATION ORDERABLES Performing Organization Address [facility] de Phone Number [facility] [address] [place] [address] * PT-INR (10/22/2011 4:23 PM CDT) Only the most recent of2 resultswithin the time period is included. PT 10.0 9.4 - 11.2 seconds [facility] INR 0.9 SEE BELOW [facility] Comment: 0.9-1.1 Normal 2.0-3.0 Conventional 2.5-3.5 Intensive Blood specimen (specimen) BLOOD SPECIMEN / Unknown 10/22/2011 4:23 PM CDT 10/22/2011 4:37 PM CDT Curtis Valenzuela [place] LAB - COAGULATION ORDERABLES Performing Organization Address [facility] de Phone Number [facility] [address] [place] [address] * XR CHEST PA AND LATERAL (10/22/2011 1:56 PM CDT) Anatomical Region Laterality Modality Chest Radiographic Samreen ging 10/22/2011 1:59 PM CDT Impressions 10/22/2011 1:59 PM CDT No acute cardiopulmonary disease. Narrative 10/22/2011 1:59 PM CDT CHEST 2 VIEWS CLINICAL INDICATION: Shortness of breath FINDINGS: Two views of the chest were obtained. The lungs are well expanded. No confluent infiltrate, consolidation, or effusion is present. The heart and mediastinal silhouettes are normal. Procedure Note David Camarena MD - 10/22/2011 CHEST 2 VIEWS CLINICAL INDICATION: Shortness of breath FINDINGS: Two views of the chest were obtained. The lungs are well expanded. No confluent infiltrate, consolidation, or effusion is present. The heart and mediastinal silhouettes are normal. IMPRESSION No acute cardiopulmonary disease. Curtis L Galkowski DO DIAGNOSTIC IMAGING ORDERABLES * EKG 12-LEAD (10/22/2011 1:19 PM CDT) Only the most recent of2 resultswithin the time period is included. Ventricular Rate 72 BPM [facility] Atrial Rate 72 BPM [facility] P-R Interval 162 ms [facility] QRS Duration ms 80 ms [facility] Q-T Interval ms 392 ms [facility] QTC Calculation (Bezet) 429 ms [facility] M[facility] Calculated P [place] 57 degrees [facility] Calculated R [place] 25 degrees [facility] Calculated T [place] 9 degrees [facility] Interpretation EKG Normal sinus rhythm Possible Left atrial enlargement Borderline ECG No previous ECGs available Confirmed by RJ ANAYA, NICOLÁS ([id number]) on 10/23/2011 9:29:15 AM [facility] MUSE 10/22/2011 1:19 PM CDT 10/23/2011 9:29 AM CDT Narrative Transcriptions Document, Scanned - 10/22/2011 3:27 PM CDT Document, Scanned - 10/23/2011 9:29 AM CDT Curtis Gonzalez DO ECG ORDERABLES Performing Organization Address [facility] Co de Phone Number [facility] MUSE * TSH (10/11/2011 1:57 PM CDT) Only the most recent of5 resultswithin the time period is included. TSH 0.848 0.450 - 4.500 uIU/mL [facility] INSURANCE BILL Blood specimen (specimen) BLOOD SPECIMEN / Unknown 10/11/2011 1:57 PM CDT 10/11/2011 9:40 PM CDT Narrative Resulting Agency Comment [facility] [address] [id number] Tono Rosado MD LAB - CHEMISTRY O RDERABLES [facility] INSURANCE BILL * CT ABDOMEN AND PELVIS WITH IV CONTRAST (05/13/2011 10:28 AM CDT) Anatomical Region Laterality Modality Abdomen, Pelvis Computed Tomogra phy 05/13/2011 11:1 1 AM CDT Impressions 05/13/2011 11:11 AM CDT 1. Small hepatic cysts. 2. Patient is status post cholecystectomy. 3. CT of the abdomen is otherwise unremarkable. CT PELVIS WITH CONTRAST: CT examination of the pelvis was performed using oral and IV contrast material. 80 mL Omnipaque were injected for the study. There is no evidence of a mass lesion or adenopathy. The appendix is normal. There is no inflammatory lesion seen. No evidence of free fluid in the pelvis. The urinary bladder appears normal. IMPRESSION: Unremarkable CT examination of the pelvis. Narrative 05/13/2011 11:[address] ABDOMEN WITH CONTRAST AND CT PELVIS WITH CONTRAST from 05/13/2011 INDICATION: Lower abdominal pain and diarrhea. CT ABDOMEN WITH CONTRAST: CT examination of the abdomen was performed using oral and IV contrast material. 80 mL Omnipaque were injected for the study. Scans through the lung bases are unremarkable. No evidence of a pleural effusion. There is a 1.5 cm cyst in the left lobe of the liver and there is a 2.5 cm cyst in the inferior right lobe of the liver. The gallbladder has been removed. The pancreas and spleen appear normal. No evidence of free fluid or free air in the abdomen. The kidneys appear normal. There is no evidence of retroperitoneal adenopathy. The abdominal aorta appears normal. Procedure Note Kirk Burgess MD - 05/13/2011 CT ABDOMEN WITH CONTRAST AND CT PELVIS WITH CONTRAST from 05/13/2011 INDICATION: Lower abdominal pain and diarrhea. CT ABDOMEN WITH CONTRAST: CT examination of the abdomen was performed using oral and IV contrast material. 80 mL Omnipaque were injected for the study. Scans through the lung bases are unremarkable. No evidence of a pleural effusion. There is a 1.5 cm cyst in the left lobe of the liver and there is a 2.5 cm cyst in the inferior right lobe of the liver. The gallbladder has been removed. The pancreas and spleen appear normal. No evidence of free fluid or free air in the abdomen. The kidneys appear normal. There is no evidence of retroperitoneal adenopathy. The abdominal aorta appears normal. IMPRESSION 1. Small hepatic cysts. 2. Patient is status post cholecystectomy. 3. CT of the abdomen is otherwise unremarkable. CT PELVIS WITH CONTRAST: CT examination of the pelvis was performed using oral and IV contrast material. 80 mL Omnipaque were injected for the study. There is no evidence of a mass lesion or adenopathy. The appendix is normal. There is no inflammatory lesion seen. No evidence of free fluid in the pelvis. The urinary bladder appears normal. IMPRESSION: Unremarkable CT examination of the pelvis. Jose Solorzano MD CT ORDERABLES * C-PEPTIDE (07/30/2010 3:35 PM CANDY BUTCHER) Only the most recent of4 resultswithin the time period is included. C-Peptide 2.9 1.1 - 4.4 ng/mL [facility] INSURANCE BILL Comment:C-Peptide reference interval is for fasting patients. BLOOD SPECIMEN / Unknown 07/30/2010 3:35 PM CANDY BUTCHER 07/30/2010 9:49 PM CANDY BUTCHER Narrative Resulting Agency Comment [employer] [place] [phone] Raheem Marcano DO LAB - CHEMISTRY SANGITA OLIVEROS Performing Organization Address City/[facility] Co de Phone Number [facility] INSURANCE BILL * HEMOGLOBIN A1C (07/30/2010 3:35 PM CANDY BUTCHER) Only the most recent of4 resultswithin the time period is included. Hemoglobin A1c 5.5 4.8 - 5.6 % [facility] INSURANCE BILL Comment: Increased risk for diabetes: 5.7 - 6.4 Diabetes: >6.4 Glycemic control for adults with diabetes: <7.0 BLOOD SPECIMEN / Unknown 07/30/2010 3:35 PM CANDY BUTCHER 07/30/2010 9:49 PM CANDY BUTCHER Narrative Resulting Agency Comment [employer] [facility] [phone] Raheem Marcano DO LAB - CHEMISTRY SANGITA OLIVEROS [facility] INSURANCE BILL * LAB RESULTS ORDER (05/16/2010) Raheem Marcano DO LAB - THERAPEUTIC DR UG MONITORING ORDERABLES * ENDOSCOPY ORDER (05/16/2010) Raheem Marcano DO GI PROCEDURE ORDERAB LES * NUC MYOCARD PERFUSION SPECT STRESS AND REST (05/14/2010 12:00 PM CDT) Anatomical Region Laterality Modality Chest Nuclear Medicine 05/14/2010 1:20 PM CDT Impressions 05/14/2010 1:20 PM CDT Unremarkable myocardial perfusion scan and motion study. Narrative 05/14/2010 1:20 PM CDT NM MYOCARDIAL SPECT SCAN Indication: Chest pain. Diabetes. Family history. A resting study is carried out with 11.0 mCi Tc Myoview. The patient is then injected with 0.4 mg Lexiscan followed by 40.0 mCi Tc Myoview. A preliminary stress test report is not available. No fixed or reversible perfusion defects are identified. The left ventricular ejection fraction is 78%. There is normal left ventricular wall motion and volume. Procedure Note Tip Beckett MD - 05/14/2010 NM MYOCARDIAL SPECT SCAN Indication: Chest pain. Diabetes. Family history. A resting study is carried out with 11.0 mCi Tc Myoview. The patient is then injected with 0.4 mg Lexiscan followed by 40.0 mCi Tc Myoview. A preliminary stress test report is not available. No fixed or reversible perfusion defects are identified. The left ventricular ejection fraction is 78%. There is normal left ventricular wall motion and volume. IMPRESSION Unremarkable myocardial perfusion scan and motion study. Raheem Marcano DO NM ORDERABLES * CARDIAC STRESS TEST PHARMACOLOGICAL ORDER (05/14/2010) 05/14/2010 Narrative Procedure Note Mazin Fair [facility] - [facility] CHEMICAL STRESS TEST PATIENT: VALDEZ CAGLE MR#: [id number] DATE OF SERVICE: 05/14/2010 : 1965 ROOM: REFERRING PHYSICIAN: RAHEEM MARCANO DO INDICATIONS FOR PROCEDURE: This 44 year old female gives a history ofatypical chest pains. RESTING EKG: Normal sinus rhythm. Minor nonspecific T-wave changes. A pharmacological stress test was carried out using intravenous Lexiscan.No diagnostic ST segment abnormalities were noted. There were noarrhythmias. IMPRESSION: 1.No diagnostic ST segment abnormalities noted after Lexiscaninfusion. 2.Myocardial perfusion scan is pending. MAZIN FAIR MD KQ/PM #: [id number] CC: RAHEEM MARCANO DO CHEMICAL STRESS TEST - DP Mazin Fair MD CARDIAC SERVICES ORD ERABLES * MRI BRAIN NON CONTRAST (05/11/2010 3:25 PM CDT) Anatomical Region Laterality Modality Head Magnetic Resonan ce 05/11/2010 3:29 PM CDT Narrative 05/11/2010 3:29 PM CDT MRI Brain Noncontrast Indication for examination: Recurrent headache.. Technique: Noncontrast T1 and T2-weighted axial, T1-weighted sagittal and T2-weighted coronal images of the brain are obtained. No prior studies are available. Findings: No abnormal signal intensity is identified to suggest the presence of tumor, infarct or demyelinating process. Ventricles and subarachnoid pathways are normal in size and configuration. There is no mass lesion or fluid collection. Visualized paranasal sinuses are well aerated. CONCLUSION: Unremarkable MRI examination of the brain as described. Procedure Note Basilio Henley MD - 05/11/2010 MRI Brain Noncontrast Indication for examination: Recurrent headache.. Technique: Noncontrast T1 and T2-weighted axial, T1-weighted sagittal and T2-weighted coronal images of the brain are obtained. No prior studies are available. Findings: No abnormal signal intensity is identified to suggest the presence of tumor, infarct or demyelinating process. Ventricles and subarachnoid pathways are normal in size and configuration. There is no mass lesion or fluid collection. Visualized paranasal sinuses are well aerated. CONCLUSION: Unremarkable MRI examination of the brain as described. Raheem Marcano DO MR ORDERABLES * AMBULATORY CARDIOLOGY ORDER (05/08/2010 3:02 PM CDT) Narrative Procedure Note Raheem Marcano DO - 05/09/2010 3:38 AM CDT Electrocardiogram shows a sinus rhythm. The axis is +30 degrees, rateis 71. SC interval 0.18, QRS 0.05, QT 0.40. P, QRS, and T waves are within normal limits. There are nonspecific T changes. Recommend stress test. Care provided at [facility], [id number] [place] [address]. Raheem Marcano D.O. Electronically Signed 05/09/2010 11:06:19 CDT DKB/MedQ #:[id number] Raheem Marcano DO CARDIAC SERVICES ORD ERABLES * T4 FREE (05/08/2010 2:39 PM CDT) T4 Free 1.33 0.82 - 1.77 ng/dL [facility] INSURANCE BILL BLOOD SPECIMEN / Unknown 05/08/2010 2:39 PM CDT 05/08/2010 9:23 PM CDT Narrative Resulting Agency Comment [facility] [phone] Raheem Marcano DO LAB - CHEMISTRY ORDE [facility] Organization Address City/State/ZIP Co de Phone Number [facility] INSURANCE BILL * LIPID PROFILE (05/08/2010 2:39 PM CDT) [...] PM CDT Narrative Resulting Agency Comment [facility] [place] [address] [facility] [phone] Raheem Marcano DO LAB - CHEMISTRY SANGITA ANNIACAROLINA [facility] INSURANCE BILL * MAMMO DIAG DIRECT DIGITAL IMAGE UNIL LEFT [id number] (01/17/2010 11:02 AM CDT) Anatomical Region Laterality Modality Left Mammography 01/17/2010 11:4 4 AM CDT Narrative 01/18/2010 11:33 AM CDT EXAM: DIGITAL LEFT DIAGNOSTIC MAMMOGRAM WITH CAD INDICATION: Asymmetric density left breast. TECHNIQUE: Unilateral left breast spot compression CC, mediolateral and craniocaudad views. The study was interpreted with the aid of CAD. TECHNOLOGIST: RT Elliott (R)(M) FINDINGS: Nodular density effaces upon compression. No residual density is seen. ASSESSMENT: BI-RADS CATEGORY 2 BENIGN FINDINGS. RECOMMENDATION: Followup in one year. The above findings should be correlated with physical examination. A relatively nonspecific study should not preclude additional evaluation if suspicious findings are present clinically. An Citizen Of [place] [employer] Certified Facility Procedure Note Nancy Stoddard MD / Marleen Douglas (Clerical Edt), RT(R)(M) - 01/17/2010 EXAM: DIGITAL LEFT DIAGNOSTIC MAMMOGRAM WITH CAD INDICATION: Asymmetric density left breast. TECHNIQUE: Unilateral left breast spot compression CC, mediolateral and craniocaudad views. The study was interpreted with the aid of CAD. TECHNOLOGIST: RT Elliott (R)(M) FINDINGS: Nodular density effaces upon compression. No residual density is seen. ASSESSMENT: BI-RADS CATEGORY 2 BENIGN FINDINGS. RECOMMENDATION: Followup in one year. The above findings should be correlated with physical examination. A relatively nonspecific study should not preclude additional evaluation if suspicious findings are present clinically. An Citizen Of [place] [employer] Certified Facility Raheem Marcano DO MAMMO ORDERABLES * CHLAMYDIA + GC DNA PROBE AMPLIFIED (01/10/2010 5:19 PM CDT) Chlamydia MARA Urine Negative Negative [facility] INSURANCE BILL GC MARA Urine Negative Negative [facility] INSURANCE BILL Please Note [facility] INSURANCE BILL Comment: Acceptable specimens for this test are male urethral swab, endocervical swab and liquid based pap specimens, vaginal swabs in APTIMA transports and first void urine. See online Directory of Services for test number for rectal and pharyngeal specimens. PART OF UTERINE CERVIX / Unknown 01/10/2010 5:19 PM CDT 01/10/2010 10:19 PM CDT Narrative Resulting Agency Comment [facility] [place] [id number] [facility] [id number] Helen Ramirez DO LAB - MICROBIOLOGY O RDERABLES [facility] INSURANCE BILL * URINALYSIS - POINT OF CARE (01/10/2010 4:47 PM CDT) Clarity UA POCT clear Color UA POCT yellow Leukocyte UA neg Negative Nitrite UA POCT neg Negative Urobilinogen UA POCT 0.2 0.1 - 1.0 EU/dL Protein UA POCT neg Negative pH UA 5.0 5.0 - 8.0 pH units Blood UA neg Negative Specific Letcher UA POCT 1.020 1.002 - 1.030 Ketone UA neg Negative Bilirubin UA POCT neg Negative Glucose UA neg Negative Urine specimen (specimen) URINE / Unknown 01/10/2010 4:47 PM CDT Helen Ramirez DO LAB - POINT OF CARE ORDERABLES * MAMMO SCREENING DIGITAL IMAGE BILAT [id number] (01/10/2010 3:35 PM CDT) Anatomical Region Laterality Modality Breast Bilateral Mammography 01/11/2010 9:2 3 AM CDT Narrative 01/12/2010 7:41 AM CDT EXAM: DIGITAL BILATERAL SCREENING MAMMOGRAMS WITH CAD CORRELATION DATE: 01/10/2010. PREVIOUS EXAM DATE: 04/07/2006. INDICATION: Screening. TECHNIQUE: Bilateral craniocaudad (CC) and mediolateral oblique (MLO) views. The study was interpreted with the aid of CAD. TECHNOLOGIST: Cm Pereira RT(R) (M) TISSUE DENSITY: Heterogeneously dense. FINDINGS: The [...] findings are present clinically. An Citizen Of [place] [employer] Certified Facility Procedure Note Nancy Stoddard MD / Marleen Douglas (Clerical Edt), RT(R)(M) - 01/11/2010 EXAM: DIGITAL BILATERAL SCREENING MAMMOGRAMS WITH CAD CORRELATION DATE: 01/10/2010. PREVIOUS EXAM DATE: 04/07/2006. INDICATION: Screening. TECHNIQUE: Bilateral craniocaudad (CC) and mediolateral oblique (MLO) views. The study was interpreted with the aid of CAD. TECHNOLOGIST: Cm Pereira, RT(R) (M) TISSUE DENSITY: Heterogeneously dense. FINDINGS: The [...] findings are present clinically. An Citizen Of [place] [employer] Certified Facility Raheem Marcano DO MAMMO ORDERABLES * HERPES II, TYPE SPECIFIC (PO REF LAB) (10/12/2008 2:57 PM CDT) Herpes Simplex Virus 2 Antibody IgG Type Specific <0.91 0.00 - 0.90 index [facility] INSURANCE BILL Comment: Negative <0.91 Equivocal 0.91 - 1.09 Positive >1.09 . Note: Negative indicates no antibodies detected to HSV-2. Equivocal may suggest early infection. If clinically appropriate, retest at later date. Positive indicates antibodies detected to HSV-2; coinfection with HSV-1 cannot be excluded without type specific testing. 10/12/2008 2:57 PM CDT 10/12/2008 9:28 PM CDT Narrative Resulting Agency Comment [facility] [address] [facility] [phone] Helen Ramirez DO LAB - MICROBIOLOGY O RDERABLES [facility] INSURANCE BILL * PAP IG CT-NG RFLX HPV ASCU (PO REF LAB) (10/12/2008 9:56 AM CDT) [facility] INSURANCE BILL Diagnosis [facility] INSURANCE BILL Comment: NEGATIVE FOR INTRAEPITHELIAL LESION AND MALIGNANCY. FUNGAL ORGANISMS MORPHOLOGICALLY CONSISTENT WITH FAINA SPECIES ARE PRESENT. CELLULAR CHANGES ASSOCIATED WITH INFLAMMATION ARE PRESENT. Specimen Adequacy [facility] INSURANCE BILL Comment: Satisfactory for evaluation. No endocervical cells are present. This is consistent with a history of hysterectomy. 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 [facility] INSURANCE BILL Note [...] use of an image guided system. Reflex [facility] INSURANCE BILL Comment: The HPV DNA reflex [...] Thin Prep Vial Resulting Agency Comment [facility] [place] [address] [facility] W [id number] Helen Ramirez DO LAB - PATHOLOGY/CYTO LOGY ORDERABLES [facility] INSURANCE BILL * (ABNORMAL) GLUCOSE - POINT OF CARE (10/07/2008 11:23 AM CDT) Only the most recent of8 resultswithin the time period is included. Pathologist [facility] Glucose WB/POC 121(H) 75 - 110 mg/dl [facility] BLOOD SPECIMEN / Unknown 10/07/2008 11:23 AM CDT Antony Carias MD LAB - POINT OF CARE ORDERABLES [facility] [address] [place] [address] * (ABNORMAL) BASIC METABOLIC PANEL (CALCIUM TOTAL) (10/06/2008 2:54 AM CDT) Pathologist [facility] BUN 12 7.0 - 17.0 mg/dl [facility] Sodium 138 137 - 145 mEq/L [facility] Potassium 3.3(L) 3.6 - 5.0 mEq/L [facility] Chloride 107 98.0 - 107.0 mEq/L [facility] CO2 22 22.0 - 30.0 mEq/L [facility] Anion Gap 8.4 [facility] Glucose 89 75 - 110 mg/dl [facility] Creatinine 1.0 0.7 - 1.2 mg/dl [facility] Calcium 8.4 8.4 - 10.2 mg/dl [facility] eGFR by MDRD 77.5 ml/min/1.73 m2 [facility] BLOOD SPECIMEN / Unknown 10/06/2008 2:54 AM CDT Antony Carias MD LAB - CHEMISTRY SANGITA LOIVEROS Performing Organization Address [facility] de Phone Number [address] [address] * MAGNESIUM BLOOD (10/06/2008 2:54 AM CDT) Magnesium 2.0 1.6 - 2.3 mg/dl [facility] BLOOD SPECIMEN / Unknown 10/06/2008 2:54 AM CDT Antony Carias MD LAB - CHEMISTRY SANGITA OLIVEROS Performing Organization Address [facility] de Phone Number [address] [address] * TYPE + SCREEN PANEL (10/05/2008 12:27 PM CDT) ABO Rh O Pos [facility] Antibody Screen Neg [facility] BLOOD SPECIMEN / Unknown 10/05/2008 12:27 PM CDT Stephen Bal MD LAB - BLOOD BANK ORD ERABLES Performing Organization Address [facility] de Phone Number [address] [address] * GROSS + MICRO EXAM (09/27/2008 12:00 AM CDT) Surgeon DR. WILLA RINCON [facility] Grossed By NADJA JORGE [facility] Gross Report [facility] Comment: COPY TO DR. RAHEEM MARCANO INDICATION FOR PROCEDURE MODIFICATION OF BOWEL HABITS OPERATION COLONOSCOPY GROSS THE SPECIMEN IS RECEIVED IN TWO CONTAINERS LABELED WITH THE PATIENT'S NAME. 1. THE FIRST CONTAINER IS LABELED CECUM POLYP. THE SPECIMEN CONSISTS OF TWO <1 MM FLECKS OF FLEMING-RED MATERIAL/POSSIBLE TISSUE. STAINED AND ALL SUBMITTED IN A. 2. THE SECOND CONTAINER IS LABELED ASCENDING BIOPSY. THE SPECIMEN CONSISTS OF MULTIPLE 1 MM FRAGMENTS OF LIGHT FLEMING TISSUE, STAINED AND SUBMITTED IN B. LW/KM Microscopic Examination [facility] Comment: MICROSCOPIC 1. THE CECAL POLYP IS HEAVILY ELECTRODESICCATED OR CRUSHED BUT SHOWS FEATURES SUGGESTIVE OF HYPERPLASTIC POLYP. 2. THE ASCENDING COLON BIOPSY SHOWS COLONIC MUCOSA WITH LYMPHOID NODULES AND MILD INTERSTITIAL EDEMA. THERE IS NO SIGNIFICANT INFLAMMATION. THE SUBEPITHELIAL COLLAGEN DOES NOT APPEAR THICKENED. AB/KM Diagnosis [facility] Comment: DIAGNOSIS 1. CECAL POLYP, POLYPECTOMY -- SUGGESTIVE OF HYPERPLASTIC POLYP 2. ASCENDING COLON BIOPSIES -- NO PATHOLOGIC DIAGNOSIS AB/KM Released by EDGARD SCHWARTZ M.D. [facility] CPT Code 64360 X2 [facility] POLYP OF COLON / Unknown 09/27/2008 Willa Rincon DO LAB - PATHOLOGY/CYTO LOGY ORDERABLES [facility] [address] [place] [address] * (ABNORMAL) GENERAL HEALTH PANEL (08/11/2008 4:23 PM CANDY BUTCHER) Chemistries [facility] INSURANCE BILL Glucose 124(H) 65 - 99 mg/dL [facility] INSURANCE BILL BUN 18 5 - 26 mg/dL [facility] INSURANCE BILL Creatinine 1.00 0.57 - 1.00 mg/dL [facility] INSURANCE BILL eGFR by MDRD >59 >59 mL/min/1. 73 [facility] INSURANCE BILL eGFR by MDRD >59 >59 mL/min/1. 73 [facility] INSURANCE BILL Comment: Note: Persistent reduction for 3 months or more in an eGFR <60 mL/min/1.73 m2 defines CKD. Patients with eGFR values >/=60 mL/min/1.73 m2 may also have CKD if evidence of persistent proteinuria is present. Additional information may be found at [email or web address]. BUN/Creatinine Ratio 18 8 - 27 [facility] INSURANCE BILL Sodium 137 135 - 145 mmol/L [facility] INSURANCE BILL Potassium 3.3(L) 3.5 - 5.2 mmol/L [facility] INSURANCE BILL Chloride 103 97 - 108 mmol/L [facility] INSURANCE BILL CO2 20 20 - 32 mmol/L [facility] INSURANCE BILL Calcium 9.7 8.5 - 10.6 mg/dL [facility] INSURANCE BILL Protein Total 7.4 6.0 - 8.5 g/dL [facility] INSURANCE BILL Albumin 4.3 3.5 - 5.5 g/dL [facility] INSURANCE BILL Globulin Total 3.1 1.5 - 4.5 g/dL [facility] INSURANCE BILL Albumin/Globulin Ratio 1.4 1.1 - 2.5 [facility] INSURANCE BILL Bilirubin Total 0.4 0.1 - 1.2 mg/dL [facility] INSURANCE BILL Alkaline Phosphatase 62 25 - 150 IU/L [facility] INSURANCE BILL AST 14 0 - 40 IU/L [facility] INSURANCE BILL ALT 24 0 - 40 IU/L [facility] INSURANCE BILL . [facility] INSURANCE BILL Thyroid [facility] INSURANCE BILL TSH 0.715 0.450 - 4.500 uIU/mL [facility] INSURANCE BILL . [facility] INSURANCE BILL CBC Platelet Count and Differential [facility] INSURANCE BILL WBC 9.4 4.0 - 10.5 x10E3/uL [facility] INSURANCE BILL RBC 4.64 3.80 - 5.10 x10E6/uL [facility] INSURANCE BILL Hemoglobin 13.8 11.5 - 15.0 g/dL [facility] INSURANCE BILL Hematocrit 40.5 34.0 - 44.0 % [facility] INSURANCE BILL MCV 87 80 - 98 fL [facility] INSURANCE BILL MCH 29.6 27.0 - 34.0 pg [facility] INSURANCE BILL MCHC 34.0 32.0 - 36.0 g/dL [facility] INSURANCE BILL RDW 14.1 11.7 - 15.0 % [facility] INSURANCE BILL Platelet Count 286 140 - 415 x10E3/uL [facility] INSURANCE BILL Granulocytes % 73 40 - 74 % [facility] INSURANCE BILL Lymphocytes % 21 14 - 46 % [facility] INSURANCE BILL Monocytes % 5 4 - 13 % [facility] INSURANCE BILL Eosinophils % 1 0 - 7 % [facility] INSURANCE BILL Basophils % 0 0 - 3 % [facility] INSURANCE BILL Granulocytes Absolute 6.9 1.8 - 7.8 x10E3/uL [facility] INSURANCE BILL Lymphocytes Absolute 2.0 0.7 - 4.5 x10E3/uL [facility] INSURANCE BILL Monocytes Absolute 0.5 0.1 - 1.0 x10E3/uL [facility] INSURANCE BILL Eosinophils Absolute 0.1 0.0 - 0.4 x10E3/uL [facility] INSURANCE BILL Basophils Absolute 0.0 0.0 - 0.2 x10E3/uL [facility] INSURANCE BILL Comment Hematology NOT AVAIL. [facility] INSURANCE BILL BLOOD SPECIMEN / Unknown 08/11/2008 4:23 PM CANDY BUTCHER 08/11/2008 9:27 PM CANDY BUTCHER Narrative [facility] INSURANCE BILL - 08/16/2008 4:18 PM CANDY BUTCHER Additional Result Information HEMATOLOGY COMMENTS: BLOOD,URINE ([facility]): RESULT NOT AVAILABLE Resulting Agency Comment [facility] [address] [phone] Raheem Marcano DO LAB - CHEMISTRY ORDSahara ANNIACAROLINA Performing Organization Address [facility]/ZIP Co de Phone Number [facility] INSURANCE BILL * LIPID PROFILE W TCHOL/HDL (PO REF LAB) (08/11/2008 4:23 PM CANDY BUTCHER) Cholesterol 124 100 - 199 mg/dL [facility] INSURANCE BILL Triglycerides 64 0 - 149 mg/dL [facility] INSURANCE BILL HDL Cholesterol 46 >39 mg/dL [facility] INSURANCE BILL Comment: According to ATP-III Guidelines, HDL-C >59 mg/dL is considered a negative risk factor for CHD. VLDL Calculated 13 5 - 40 mg/dL [facility] INSURANCE BILL LDL Calculated 65 0 - 99 mg/dL [facility] INSURANCE BILL Cholesterol/HDL Ratio 2.7 0.0 - 4.4 ratio units [facility] INSURANCE BILL BLOOD SPECIMEN / Unknown 08/11/2008 4:23 PM CANDY BUTCHER 08/11/2008 9:27 PM CANDY BUTCHER Narrative Resulting Agency Comment [facility] [address] [phone] Raheem Marcano DO LAB - CHEMISTRY ORDE DOMO [facility] INSURANCE BILL Care Teams Syrup Mixer Relationship Specialty Start Date [place] [id number] [place] [id number] PCP - OBGYN 11/21/08 Nona Ayers MD [address] [place] [address] [address] [place] [phone] PCP - General Family Medicine 11/01/13 Tono Rosado MD [address] [place] [address] [address] [place] [id number] Rheumatology 01/26/15
--- OUTSIDE RECORDS SUMMARY | 2024-08-27 16:59 | XMS_ITS | Clinical Summary ---
Author Organization [facility] [employer] Address [address] [place] [address] Care Team Providers Care Senior Packaging Engineer Name Role Phone Helen Ramirez DO Unavailable Nona Ayers MD Primary Care Provider [phone] Tono Rosado MD Unavailable [phone] Source Comments [facility],non-owned Affiliates and Associated Physician Practices is amultiple site organization consisting of ambulatory clinics and hospital sitesin [place], [place], [place] and [place]. This disclosure is being madepursuant to the Care Everywhere program and may not contain all information available regarding this patient. Last updated 18.[facility] [employer] Allergies No known active allergies Medications * [...] complication, not stated as uncontrolled 11/21/2008 10/12/2009 Family History Medical History Relation Name Comments Arthritis - Rheumatoid Mother Cancer Mother mom colon cance r Diabetes Mother Heart Disease Mother Hypertension Mother Stroke Mother Migraine Sister Relation Name Status Comments Mother Sister Social History Tobacco Use Types Packs/Day Years [...] Comments Blood Pressure 145/95 09/11/2015 10:00 AM LAST CHALKER Pulse 77 09/11/2015 10:21 AM LAST CHALKER Temperature 35.9 C (96.6 F) 09/11/2015 9:42 AM LAST CHALKER Respiratory Rate 16 09/11/2015 10:21 AM LAST CHALKER Oxygen Saturation 100% 09/11/2015 10:21 AM LAST CHALKER Inhaled Oxygen Concentration - - Weight 92.1 kg (203 lb) 09/11/2015 9:03 AM LAST CHALKER Height 165.1 cm (5' 5 ) 09/11/2015 9:03 AM LAST CHALKER Body Mass Index 33.78 09/11/2015 9:03 AM LAST CHALKER Plan of Treatment Health Maintenance Due Date Last Done Comments COLOGUARD (AGES 45-75) - COL ON CA SCREENING 1964 CT COLONOGRAPHY - COLON CA SCREENING 1964 FIT - COLON CA SCREENING 1964 FLEX SIG - COLON CA SCREENING 1964 MEDICARE AWV 12 MONTHS 1964 HIV SCREENING 1979 HEPATITIS C SCREENING 07/28/1982 DTAP/TDAP/TD VACCINES (1 - Tdap) 1983 PAP SMEAR 10/13/2011 10/12/2008 MAMMOGRAM 01/11/2012 01/10/2010 PNEUMOCOCCAL VACCINE 50+ (1 of 1 - PCV) 2014 ZOSTER VACCINE (1 of 2) 2014 LIPID TESTING 05/08/2015 05/08/2010, 08/11/2008 COVID-19 VACCINE (1 - 2023-2 5 season) 2024 INFLUENZA VACCINE (#1) 2024 DEPRESSION SCREENING 07/21/2024 COLON MONITORING 09/11/2025 09/11/2015, 09/11/2015 COLONOSCOPY - COLON CA SCREENING 09/11/2025 09/11/2015, 09/11/2015 Colorectal Cancer Screening 09/11/2025 Respiratory Syncytial Virus (RSV) Vaccine Pt: or over 60 yrs (1 - 1-dose 75+ series) 2039 HEPATITIS B VACCINE Aged Out No longe r eligible based on patient's age to complete this topic HIB VACCINE Aged Out No longer eligi ble based on patient's age to complete this topic HPV VACCINE Aged Out No longer eligi ble based on patient's age to complete this topic MENINGOCOCCAL (Group B) VACCINE Aged Out No longer eligible b ased on patient's age to complete this topic MENINGOCOCCAL VACCINE Aged Out No pascual bubba eligible based on patient's age to complete this topic PNEUMOCOCCAL VACCINE Aged Out No long er eligible based on patient's age to complete this topic Procedures Procedure Name Priority Date/Time Associated Diagnosis Comments ENDOSCOPY, COLON, SCREENING Routine 09/11/2015 9:20 AM LAST CHALKER LIPID PROFILE Routine 05/08/2010 2:39 PM CDT Dysmetabolic syndrome X Headache Black stool Dyspnea MAMMO BILAT SCREENING Routine 01/10/2010 3:35 PM CDT Other Screening Mammogram PAP IG LB CT+GC RFLX HPV HR ASCU 10/12/2008 9:56 AM CDT from Last 3 Months or Most Recently Relevant to Health Maintenance Results * ENDOSCOPY, COLON, SCREENING (09/11/2015 9:20 AM LAST CHALKER) Report Endoscopy POC _ Patient Name: Cate [...] 1 week. Procedure Code(s): --- Professional --- 72210, Colonoscopy, flexible; with biopsy, single or multiple --- Technical --- 99838, Colonoscopy, flexible; with biopsy, single or multiple [...] or abscess without bleeding CPT copyright 2014 [employer]. All rights reserved. The codes documented in this report are preliminary and upon internet sales consultant review may be revised to meet current compliance requirements. ___ Ellen Leonard DO 09/11/2015 9:40:41 AM This report has been signed electronically. Number of Addenda: 0 Note Initiated On: 09/11/2015 9:20 AM [facility] ENDOSCOPY 09/11/2015 9:20 AM LAST CHALKER Ellen Lenoard DO GI PROCEDURE ORDERAB LES [facility] [place] [address] * LIPID PROFILE (05/08/2010 2:39 PM CDT) [...] PM CDT Narrative Resulting Agency Comment [facility] [address] [id number] Paulino Hickman DO LAB - CHEMISTRY SANGITA OLIVEROS Performing Organization Address City/[facility]/ZIP Co de Phone Number [facility] INSURANCE BILL * MAMMO SCREENING DIGITAL [...] if suspicious findings are present clinically. An [employer] Certified Facility Procedure Note [...] if suspicious findings are present clinically. An [employer] Certified Facility Paulino Hickman [...] ICD9 [facility] INSURANCE BILL Comment:V72.31 ; Routine electrochemist ecological examination Performed by [facility] INSURANCE BILL Comment:Shana Blanca, Cyto technologist QC Reviewed by [facility] INSURANCE BILL Comment:Cheryl Cuellar Senior Chemical Engineer (ASCP) Comment . [facility] INSURANCE BILL Note [...] CYTYC Thin Prep Vial Resulting Agency Comment [facility] [phone] Helen Ramirez DO LAB - PATHOLOGY/CYTO LOGY ORDERABLES [facility] INSURANCE BILL from Last 3 Months or Most Recently Relevant to Health Maintenance Care Teams Senior Packaging Engineer Relationship Specialty [place] [id number] [facility] [address] [place] [id number] PCP - OBGYN 11/21/08 Nona Ayers MD [facility] [place] [phone] PCP - General Family Medicine 11/01/13 Tono Rosado MD [facility] [place] [phone] Rheumatology 01/26/15
--- OUTSIDE RECORDS SUMMARY | 2024-08-27 16:59 | XMS_ITS | CONTINUITY OF CARE DOCUMENT ---
Author Name asif gold Address Unknown Organization [facility] Address [address] [place] [address] Phone [phone] Care Team Providers Care Forging Engineer Name Role Phone Tim ANAYA, Ivanna Unavailable JAMES LIZAMA MD Unavailable SELENE GEE MD Unavailable PROBLEMS Condition Status Date Provider Notes Fibromyalgia active Ivanna Dumont MD Lupus active Ivanna Dumont MD GERD (gastroesophageal reflux disease) active Ivanna Dumont MD Essential hypertension--echo ef 60 %, mild MR, TR, mild septal hypertophy,,,01/2021 active Ivanna Dumont MD Anxiety associated with depression active T parker Dumont MD Dyslipidemia active Ivanna Dumont MD Neuropathy active Ivanna Dumont MD Diabetes mellitus, type 2 active Ivanna ortega MD Thyroid nodule active Ivanan Dmuont MD Chest pain--normal stress echo 11/2020 active Ivanna Dumont MD Rheumatoid arthritis (RA) active Ivanna ortega MD Shortness of breath active Ivanna Dumont MD ENCOUNTERS Date Type Provider Location Encounter Diag nosis - In-person encounter Office Visit Ivanna Dumont MD [facility] Chest pain--normal stress echo 11/2020 - In-person encounter Office Visit Ivanna Dumont MD [facility] Rheumatoid arthritis (RA)Shortness of breath VITAL SIGNS Date Observation Value Provider Body Mass Index (Ratio) 31.61 kg/m2 Justen Foster blood pressure, diastolic 80 mm[Hg] Opal nkLogic blood pressure, systolic 140 mm[Hg] Belinda kLogic blood pressure, resting Yes Cynt mario Edward blood pressure, cuff size regular Cy lucrecia Edward blood pressure, diastolic 80 mm[Hg] Cy lucrecia Edward blood pressure, systolic 140 mm[Hg] Montserrat baez Edward pulse rate 87 /min Laura Yonny aviles oxygen saturation, oximetry 97 % Laura Edward respiratory rate E&M 16 /min Laura Leon height E&M 65 [in_i] Laura Blancas l weight E&M 190 [lb_av] Laura Yonny l ALLERGIES Allergy Name Onset Date Reaction Criticality Status SHRIMP Low Criticality active METFORMIN HCL Low Criticality active HISTORY OF MEDICATION USE No Known Medication SOCIAL HISTORY Date Observation Value Provider social history E&M Smoking Histo ry: Cecelia singh has never smoked. Yousif Winn social history reviewed E&M revi ewed - no changes required Yousif Winn social history E&M S moking History: P francisco has never smoked. Yousif Winn smoking status Never smoker Laura goodwin social history reviewed E&M revi ewed - no changes required Yousif Winn FAMILY HISTORY Family Member Condition Full Brother Family History of Hy pertension: Father Family History of Hy pertension: Mother Family History of Hy pertension: INSURANCE PROVIDERS Payer name Policy type / Coverage type [place] red alliance party ID AARP MEDICARE ADVANTAGE ([facility] COMPLETE PPO) Other [id number] ADVANCE DIRECTIVES Name Date DISCUSSED - NO DECISION MADE TREATMENT PLAN Date Name Performer [id number],S, Yousif Ahmedza i [id number],S, Yousif Ahmedza i [id number],S, Yousif Ahmedza i [id number],S, Yousif Ahmedza i [id number],S, Yousif Ahmedza i [id number],S, Yousif Ahmedza i Cardiology Yousif Ahmedzai Cardiology Yousif Ahmedzai Cardiology Yousif Ahmedzai Cardiology Yousif Ahmedzai Cardiology Yousif Ahmedzai Cardiology Yousif Ahmedzai Date Name CT, Coronary Calcium Score HISTORY OF PROCEDURES Procedure Date Procedure Name Provider Procedure Notes S tatus CT- Coronary CA score Ivanna Dumont MD completed EKG Ivanna Dumont MD completed
--- OUTSIDE RECORDS SUMMARY | 2024-08-27 16:59 | XMS_ITS | Encounter Summary ---
Author Organization [facility] Address [address] [place] [address] Care Team Providers Care Rag Boiler Name Role Phone Paulino Hickman DO Primary Care Provider Helen Ramirez DO Unavailable Nona Ayers MD Primary Care Provider [phone] Tono Rosado MD Unavailable [phone] Encounter Details Date Type Department Care Team (Late st Contact Info) Description 10/11/2011 [facility] Tono Rosado MD [address] [place] [id number] Social History Tobacco Use Types Packs/Day Years [...] documented as of this encounter Visit Diagnoses Not on filedocumented in this encounter Care Teams Rag Boiler Relationship Specialty [place] [address] [facility] [place] [phone] PCP - General 08/10/08 10/31/13 [place] [address] [place] [id number] PCP - OBGYN 11/21/08 Nona Ayers MD [address] [place] [address] [address] [place] [address] PCP - General Family Medicine 11/01/13 Tono Rosado MD [address] [place] [address] [address] [place] [address] Rheumatology 01/26/15 documented as of this encounter
--- OUTSIDE RECORDS SUMMARY | 2024-08-27 16:59 | XMS_ITS | Clinical Summary ---
Author Organization [facility] Address [address] [place] [address] Care Team Providers Care Secondary Social Studies Teacher Name Role Phone Unavailable Primary Care Provider Unavailabl e Social History Tobacco Use Types Packs/Day Years Used Date Smoking Tobacco: Never Assessed Comments Unknown Sex and Gender Information Value Date Recorded Sex Assigned at Not on file Legal Sex Female 8:00 PM MARKETING COMMUNICATIONS LEADER Gender Identity Not on file Sexual Orientation Not on file Plan of Treatment Health Maintenance Due Date Last Done Comments Hepatitis C Virus (HCV) Screening 1965 TdaP Immunization 1964 Pap Smear 1985 Cervical Cancer Screening (CCS) 1994 HPV/Cotest 1994 Colonoscopy 2009 Colorectal Cancer Screening 2009 Cologuard 2014 Immunochemical Fecal Occult Blood 2014 Mammogram 2014 Pneumococcal Immunization (50+ years) (1 of 1 - PCV) 2014 Zoster Immunization (1 of 2) 2014 Influenza Immunization (#1) 2024 05/15/2016, 0 09/09/2012 SARS-COV-2 Immunization ( season) 2024 07/21/2021, 05/22/2021, 10/25/2020, Additional history exists Respiratory Syncytial Virus (RSV) Immunization (Adult) (1 - 1-dose 75+ series) 2039 Hepatitis B Immunization Aged Out No longer eligible based on patient's age to complete this topic Meningococcal Immunization (ACWY) Aged Out No longer eligible based on patient's age to complete this topic Pneumococcal Immunization Combined Aged Out No longer eligible based on patient's age to complete this topic Rotavirus Immunization Aged Out No lo nger eligible based on patient's age to complete this topic
--- OUTSIDE RECORDS SUMMARY | 2024-08-27 16:59 | XMS_ITS | Clinical Summary ---
Author Organization [facility] Address [address] [place] [id number] Care Team Providers Care Manager Of Distribution Name Role Phone Unavailable Primary Care Provider Unavailabl e Social History Tobacco Use Types Packs/Day Years Used Date Smoking Tobacco: Never Assessed Comments Unknown Sex and Gender Information Value Date Recorded Sex Assigned at Not on file Legal Sex Female 4:48 PM CDT Gender Identity Not on file Sexual Orientation Not on file Plan of Treatment Health Maintenance Due Date Last Done Comments Cervical Cancer Screening Pa p Smear (Age 30 to 64) Every 3 Years 1964 Colorectal Cancer Screening Colonoscopy (10 Years) 1964 Annual Physical 1967 Hepatitis C 1982 DTaP, Tdap and Td Vaccines ( 1 - Tdap) 1983 Cervical Cancer Screening Pa p with HPV Testing (Age 30 to 64) Every 5 Years 1994 Cervical Cancer Screening with HPV 1994 Mammogram Screening 2004 Zoster Vaccines (1 of 2) 2014 COVID-19 Vaccine (2023-2 5 season) 2024 Influenza Adult (#1) 2024 RSV Immunization or 60+ Years (1 - 1-dose 75+ series) 2039 Meningococcal B Vaccine Aged Out No l onger eligible based on patient's age to complete this topic Meningococcal Vaccine Aged Out No pascual bubba eligible based on patient's age to complete this topic Pneumococcal Vaccine: Pediat rics (0 to 5 Years) and At-Risk Patients (6 to 64 Years) Aged Out No longer eligible b ased on patient's age to complete this topic RSV Immunizations Under 20 Months Aged Out No longer eligible based on patient's age to complete this topic
--- OUTSIDE RECORDS SUMMARY | 2024-08-27 17:00 | XMS_ITS ---
Author Organization [facility] Address [address] [facility] [address] [place] [address] Care Team Providers Care Revenue Audit Clerk Name Role Phone Dougie ANAYA, Viraj Primary Care Provider Elizabeth Rogel [phone] Patiño Encounters Encounter Location Date Provider Diagnosis [facility] [address] [facility] [address] [place] [address] 08/26/2023 Elizabeth Silveira Plan Of Treatment No Information Progress Notes * Cate FRANCOIS MDOB: [birth year] (58 yo F)Acc No.[id number]:08/26/2023 Patient: Viki Cate CALVERT :1965 A ge:58 Y S ex:Female Address:[address], [place], [address] * true * Date: Generated for Printi ng/Fanicoletteg/eTransmitting on: 0 08/27/2024 05:00 PM SEED PACKER
--- OUTSIDE RECORDS SUMMARY | 2024-08-27 17:00 | XMS_ITS ---
Author Organization [facility] dallin Address [address] [address] [place] [address] Care Team Providers Care Coffee Roaster Name Role Phone Dougie ANAYA, Viraj Primary Care Provider TootieElizabeth Kwon Unavailable [phone] Allergies Allergen (clinical drug ingredient) Drug/Non Drug Allergy documented on EMR Reaction Allergy Type Onset Date Status metformin metFORMIN HCl Unknown Drug Allergy Act gina shrimp allergenic extract Shrimp (Diagnostic) Unknown Drug Allergy Active REASON FOR VISIT 2 week follow up/flc, joint pain/+GERMAN, PCP: Dr. Viraj Constantnio Medications Medication SIG (Take, Route, Frequency, Duration) Notes Start Date End Date Status Pregabalin 150 MG 1 capsule Orally twi ce a day for 30 days 08/26/2023 Active Jardiance 25 MG 1 tablet Orally Once a day for 30 day(s) Active Pregabalin 75 MG 1 capsule Orally Twi ce a day Active Losartan Potassium-HCTZ 50-12.5 MG 1 tablet Orally Once a day for 30 day(s) Active DULoxetine HCl 60 MG 1 capsule Orally On ce a day for 30 day(s) Active Methocarbamol 500 MG 1.5 tablets Orally every 8 hrs for 30 day(s) Active Meloxicam 15 MG 1 tablet Orally Once a day for 30 day(s) Active Social History Tobacco Use: Social History Observation Description Date Details (start date - stop date) Never Smoker NA - NA Household Question Answer Notes Marital status: Number of children in household: 1 Tobacco Control (Standard) Question Answer Notes Tobacco use: Nonsmoker Problems Problem Type SNOMED Code ICD Code Onset Dates Problem Status W/U Status Risk Notes Problem [id number] Osteoarthritis, unspecified osteoarthritis type, unspecified site (M19.90) Active confirmed Encounters Encounter Location Date Provider Diagnosis [facility] [address] [facility] [address] [place] [address] 08/26/2023 Elizabeth Meneses GERMAN positive R76.8 ; Fibromyalgia M79.7 ; Osteoarthritis, unspecified osteoarthritis type, unspecified site M19.90 ; Achilles tendinitis, right leg M76.61 and Achilles tendinitis, left leg M76.62 Assessments Encounter Date Diagnosis (ICD Code) Assessment Notes Treatment Notes Treatment Clinical Notes Section Notes 08/26/2023 GERMAN positive (ICD-10 - R76.8) does not meet criteria of lupus, will monitor, increase lyrica to 150mg bid for fibromyalgia, back pain and leg pain, refer to Dr. Patiño (podiatry) for foot and ankle pain/Achilles tendinitis 08/26/2023 Fibromyalgia (ICD-10 - M79.7) does not meet criteria of lupus, will monitor, increase lyrica to 150mg bid for fibromyalgia, back pain and leg pain, refer to Dr. Patiño (podiatry) for foot and ankle pain/Achilles tendinitis 08/26/2023 Osteoarthritis, unspecified osteoarthritis type, unspecified site (ICD-10 - M19.90) does not meet criteria of lupus, will monitor, increase lyrica to 150mg bid for fibromyalgia, back pain and leg pain, refer to Dr. Patiño (podiatry) for foot and ankle pain/Achilles tendinitis 08/26/2023 Achilles tendinitis, right leg (ICD-10 - M76.61) does not meet criteria of lupus, will monitor, increase lyrica to 150mg bid for fibromyalgia, back pain and leg pain, refer to Dr. Patiño (podiatry) for foot and ankle pain/Achilles tendinitis 08/26/2023 Achilles tendinitis, left leg (ICD-10 - M76.62) does not meet criteria of lupus, will monitor, increase lyrica to 150mg bid for fibromyalgia, back pain and leg pain, refer to Dr. Patiño (podiatry) for foot and ankle pain/Achilles tendinitis Plan Of Treatment Medication Medication Name Sig Start Date Stop Date Notes Pregabalin 150 MG 1 capsule Orally twice a day for 30 days 08/26/2023 Next Appt Details Follow Up: 3 Months, Reason: Progress Notes * Cate FRANCOIS MDOB: [birth year] (58 yo F)Acc No.[id number]:08/26/2023 Patient: Cate DASH Provider: Carrie MENESES MD :1965 A ge:58 Y S ex:Female Date:08/26/2023 Address:[address] [place] [address] Pcp:Viraj Constantino MD Subjective: * Chief Complaints: * 2 week follow up/flcjoint pain/+ANAPCP: Dr. Viraj Constantino * HPI: G eneral Follow up: Synchronous video/audio telecommunication with [facility] Patient has agreed to telehealth visit and is aware insurance will be billed for this visit Location: patient at home, physician in office. p ositive GERMAN: legs hurting a lot, worse at night, low back hurting a lot too, on lyrica 75mg bid, not helping much, on mobic, robaxin and cymbalta failed gabapentin Legs, hands, feet and back have been hurting since age 33. The pain is constant and worse at night and in the morning. The pain is severe per patient. She has noticed swelling in the hands. am stiffness: 45 minutes. She has had trouble sleeping and admits to snoring. Sleep study has been ordered. She was told that she had rheumatoid arthritis and lupus by a doctor in [place]. She was diagnosed with myofascial pain and fibromyalgia by Dr. Rosado.several years ago. 08/12/2023, ESR, CRP and CK normal, lupus anticoagulant (-), HBV/HCV (-), Xrays: R foot: mild OA, prominent spur at insertion of Achilles tendon, L foot: mild OA, hallux valgus, hypertrophic reaction at the insertion of Achilles tendon, Xray of R hand: spurring at dorsal CMC, Xray of left hand: normal 07/03/2023, GERMAN 1:80 (cytoplasmic, fibrillar linear), cascade (-), RF/CCP (-), C3 and C4 normal. ACL and [id number] (-), UA: 3+glucose, LFTs normal, Cr 0.77, GFR 89, WBC/Hb/platelets normal, vit B12 876, vit D 36 ROS: occasional oral ulcers, +dry mouth, +dry eyes, +rash on the legs, +some hair loss, +photosensitivity, no Raynaud's, +one still at 8 months Mother: RA, lupus and gout. * ROS: G eneral / Constitutional: Patient denies c hange in appetite, chills, fatigue, fever, weight loss, weakness. C omments [facility] for details. M usculoskeletal: Comments [facility] for details. S kin: Comments [facility] for details . N eurologic: Patient denies d izziness, gait abnormality, headache, tingling / numbness . * Medical History: * Surgical History: c holecystectomy hysterectomy * Hospitalization/Major Diagno stic Procedure: * Family History: lupus, hypertension, alcohol abuse, liver disease, diabetes, blood clots. * Social History: T obacco Use: T obacco Control (Standard) T obacco use: N onsmoker. D rug/Alcohol: D o you drink alcohol?: No. H ousehold: H ousehold M arital status: d ivorced, N umber of children in household: 1 .? M iscellaneous: E xercise: Walking. * Medications: T akingJardiance 25 MG Tablet 1 tablet Orally Once a day Losartan Potassium-HCTZ 50-12.5 MG Tablet 1 tablet Orally Once a day Pregabalin 75 MG Capsule 1 capsule Orally Twice a day DULoxetine HCl 60 MG Capsule Delayed Release Particles 1 capsule Orally Once a day Meloxicam 15 MG Tablet 1 tablet Orally Once a day Methocarbamol 500 MG Tablet 1.5 tablets Orally every 8 hrs Taking Jardiance 25 MG Tablet 1 tablet Orally Once a day Taking Losartan Potassium-HCTZ 50-12.5 MG Tablet 1 tablet Orally Once a day Taking Pregabalin 75 MG Capsule 1 capsule Orally Twice a day Taking DULoxetine HCl 60 MG Capsule Delayed Release Particles 1 capsule Orally Once a day Taking Meloxicam 15 MG Tablet 1 tablet Orally Once a day Taking Methocarbamol 500 MG Tablet 1.5 tablets Orally every 8 hrs * Allergies: m etFORMIN HClShrimp (Diagnostic)no[Allergies Verified] Objective: * Vitals: * Examination: G eneral Examination: General appearance: a lert, well-nourished and in no acute distress. Head: n ormocephalic, atraumatic. Eyes: n ormal. Skin: n o rash. Lungs: r espiratory effort normal. P sychiatry: Affect / mood: n ormal affect, normal mood. ? N eurology: s peech normal. Assessment: * Assessment: 1. A NA positive - R76.8 2 . F ibromyalgia - M79.7 3 . O steoarthritis, unspecified osteoarthritis type, unspecified site - M19.90 4 . A chilles tendinitis, right leg - M76.61 5 . A chilles tendinitis, left leg - M76.62 does not meet criteria of dominguez rodriguez, will monitor, increase lyrica to 150mg bid for fibromyalgia, back pain and leg pain, refer to Dr. Patiño (podiatry) for foot and ankle pain/Achilles tendinitis. Plan: * Treatment: * Procedure Codes: * Follow Up: 3 Months * Billing Information: * Visit Code: 03842 Office Visit, Est Pt., Level 4. Modifiers: 95 * Procedure Codes: * ERY CONTAINER FINISHING HAND Sign off status: Completed true * Provider: Carire MENESES MD Date: 08/26/2023 Generated for Rajesh harrison/Izzy/Jose on: 08/27/2024 05:00 PM BATTERY CONTAINER FINISHING HAND History and Physical Notes * HPI (History of Present Illness) Category Sub-Category Detail Notes Category Not es General Follow up Synchronous video[facility]communication [facility] Patient has agreed to telehealth visit and is aware insurance will be billed for this visit Location: patient at home, physician in office positive GERMAN legs hurting a lot, worse at night, low back hurting a lot too, on lyrica 75mg bid, not helping much, on mobic, robaxin and cymbalta failed gabapentin Legs, hands, feet and back have been hurting since age 33. The pain is constant and worse at night and in the morning. The pain is severe per patient. She has noticed swelling in the hands. am stiffness: 45 minutes. She has had trouble sleeping and admits to snoring. Sleep study has been ordered. She was told that she had rheumatoid arthritis and lupus by a doctor in [place]. She was diagnosed with myofascial pain and fibromyalgia by Dr. Rosado.several years ago. 08/12/2023, ESR, CRP and CK normal, lupus anticoagulant (-), HBV/HCV (-), Xrays: R foot: mild OA, prominent spur at insertion of Achilles tendon, L foot: mild OA, hallux valgus, hypertrophic reaction at the insertion of Achilles tendon, Xray of R hand: spurring at dorsal CMC, Xray of left hand: normal 07/03/2023, GERMAN 1:80 (cytoplasmic, fibrillar linear), cascade (-), RF/CCP (-), C3 and C4 normal. ACL and [id number] (-), UA: 3+glucose, LFTs normal, Cr 0.77, GFR 89, WBC/Hb/platelets normal, vit B12 876, vit D 36 ROS: occasional oral ulcers, +dry mouth, +dry eyes, +rash on the legs, +some hair loss, +photosensitivity, no Raynaud's, +one still at 8 months Mother: RA, lupus and gout Examination Category Sub-Category Detail Notes Category Not es Neurology speech normal Psychiatry Affect / mood: normal affect, normal mood General Examination General appearance: alert, w ell-nourished and in no acute distress Head: normocephalic, atrau matic Eyes: normal Lungs: respiratory effort n ormal Skin: no rash
--- OUTSIDE RECORDS SUMMARY | 2024-08-27 17:00 | XMS_ITS ---
Author Organization [facility] dallin Address [address] [facility] [address] [address] [place] [address] Care Team Providers Care Garment Looper Name Role Phone Dougie ANAYA, Viraj Primary Care Provider Joe Elizabeth Turner Unavailable [phone] Allergies Allergen (clinical drug ingredient) Drug/Non Drug Allergy documented on EMR Reaction Allergy Type Onset Date Status metformin metFORMIN HCl Unknown Drug Allergy Act gina shrimp allergenic extract Shrimp (Diagnostic) Unknown Drug Allergy Active REASON FOR VISIT joint pain/+GERMAN, PCP: Dr. Viraj Constantino Medications Medication SIG (Take, Route, Frequency, Duration) Notes Start Date End Date Status Jardiance 25 MG 1 tablet Orally Once a day for 30 day(s) Active Pregabalin 75 MG 1 capsule Orally Twi ce a day Active DULoxetine HCl 60 MG 1 capsule Orally On ce a day for 30 day(s) Active Meloxicam 15 MG 1 tablet Orally Once a day for 30 day(s) Active Methocarbamol 500 MG 1.5 tablets Orally every 8 hrs for 30 day(s) Active Losartan Potassium-HCTZ 50-12.5 MG 1 tablet [...] Problem Status W/U Status Risk Notes Problem [id number] Fibromyalgia (M79.7) Active confirmed Vital Signs Temperature 97.0 degrees Fahrenheit 08/12/19 24 Blood pressure systolic 150 mm Hg 08/12/19 24 Blood pressure diastolic 90 mm Hg 024 Heart Rate 95 /min 08/12/2023 Height 65 in 08/12/2023 Weight 192.5 lbs 08/12/2023 BMI 32.03 kg/m2 08/12/2023 Oximetry 96 % 08/12/2023 Encounters Encounter Location Date Provider Diagnosis [facility] [address] [place] [address] 08/12/2023 Elizabeth Du Pain in unspecified joint M25.50 ; GERMAN positive R76.8 ; Pain in right hand M79.641 ; Pain in left hand M79.642 ; Pain in right foot M79.671 ; Pain in left foot M79.672 and Fibromyalgia M79.7 Assessments Encounter Date Diagnosis (ICD Code) Assessment Notes Treatment Notes Treatment Clinical Notes Section Notes 08/12/2023 Pain in unspecified joint (ICD-10 - M25.50) 58 year old female with positive GERMAN, joint pain and back pain. I am asked to evaluate her for connective tissue disease. Additional labs will be ordered. Xrays of the feet and hands will be ordered. She likely also has fibromyalgia type of process as she has several trigger points on examination. She will continue lyrica, cymbalta, mobic and robaxin for now. Follow up virtual visit will be scheduled. 08/12/2023 GERMAN positive (ICD-10 - R76.8) 58 year old female with positive GERMAN, joint pain and back pain. I am asked to evaluate her for connective tissue disease. Additional labs will be ordered. Xrays of the feet and hands will be ordered. She likely also has fibromyalgia type of process as she has several trigger points on examination. She will continue lyrica, cymbalta, mobic and robaxin for now. Follow up virtual visit will be scheduled. 08/12/2023 Pain in right hand (ICD-10 - M79.641) 58 year old female with positive GERMAN, joint pain and back pain. I am asked to evaluate her for connective tissue disease. Additional labs will be ordered. Xrays of the feet and hands will be ordered. She likely also has fibromyalgia type of process as she has several trigger points on examination. She will continue lyrica, cymbalta, mobic and robaxin for now. Follow up virtual visit will be scheduled. 08/12/2023 Pain in left hand (ICD-10 - M79.642) 58 year old female with positive GERMAN, joint pain and back pain. I am asked to evaluate her for connective tissue disease. Additional labs will be ordered. Xrays of the feet and hands will be ordered. She likely also has fibromyalgia type of process as she has several trigger points on examination. She will continue lyrica, cymbalta, mobic and robaxin for now. Follow up virtual visit will be scheduled. 08/12/2023 Pain in right foot (ICD-10 - M79.671) 58 year old female with positive GERMAN, joint pain and back pain. I am asked to evaluate her for connective tissue disease. Additional labs will be ordered. Xrays of the feet and hands will be ordered. She likely also has fibromyalgia type of process as she has several trigger points on examination. She will continue lyrica, cymbalta, mobic and robaxin for now. Follow up virtual visit will be scheduled. 08/12/2023 Pain in left foot (ICD-10 - M79.672) 58 year old female with positive GERMAN, joint pain and back pain. I am asked to evaluate her for connective tissue disease. Additional labs will be ordered. Xrays of the feet and hands will be ordered. She likely also has fibromyalgia type of process as she has several trigger points on examination. She will continue lyrica, cymbalta, mobic and robaxin for now. Follow up virtual visit will be scheduled. 08/12/2023 Fibromyalgia (ICD-10 - M79.7) 58 year old female with positive GERMAN, joint pain and back pain. I am asked to evaluate her for connective tissue disease. Additional labs will be ordered. Xrays of the feet and hands will be ordered. She likely also has fibromyalgia type of process as she has several trigger points on examination. She will continue lyrica, cymbalta, mobic and robaxin for now. Follow up virtual visit will be scheduled. Plan Of Treatment Pending Test Test Name Order Date X ray : Foot, left 08/12/2023 X ray : Foot, right 08/12/2023 X ray : Hands, bilateral 08/12/2023 Creatine Kinase,Total,Serum 08/12/2023 G-6-PD, Quant, Blood and RBC 08/12/2023 Sedimentation Rate-Westergren 08/12/2023 C-Reactive Protein, Quant 08/12/2023 Lupus Anticoagulant Reflex 08/12/2023 Hepatitis BsAg 08/12/2023 Hepatitis C antibody 08/12/2023 Next Appt Details Follow Up: 2 Weeks, Reason: f/u Progress Notes * Logan FRANCOISOB: 5 (58 yo F)Acc No.[id number]:08/12/2023 Progress Notes Patient: Cate DASH Provider: Carrie MENESES MD :1965 A ge:58 Y S ex:Female Date:08/12/2023 Address:[address] [place] [address] , [facility] Pcp:Viraj Constantino MD Subjective: * Chief Complaints: * j oint pain/+ANAPCP: Dr. Viraj Constantino * HPI: p ositive GERMAN: Legs, hands, feet and back have been hurting since age 33. The pain is constant and worse at night and in the morning. The pain is severe per patient. She has noticed swelling in the hands. am stiffness: 45 minutes. Gabapentin 600mg tid did not help. She just started lyrica. Mobic and robaxin have helped a little. Cymbalta has helped with anxiety. It has not helped with pain. She has had trouble sleeping and admits to snoring. Sleep study has been ordered. She was told that she had rheumatoid arthritis and lupus by a doctor in [place]. She was diagnosed with myofascial pain and fibromyalgia by Dr. Rosado.several years ago. 07/03/2023, GERMAN 1:80 (cytoplasmic, fibrillar linear), cascade (-), RF/CCP (-), C3 and C4 normal. ACL and [id number] (-), UA: 3+glucose, LFTs normal, Cr 0.77, GFR 89, WBC/Hb/platelets normal, vit B12 876, vit D 36 ROS: occasional oral ulcers, +dry mouth, +dry eyes, +rash on the legs, +some hair loss, +photosensitivity, no Raynaud's, +one still at 8 months Mother: RA, lupus and gout. * ROS: G eneral / Constitutional: Patient denies f ever. P atient complains of f atigue. O phthalmologic: Patient denies d ry eye(s). E NT: Patient denies d ry mouth, oral ulcers. E ndocrine: Patient denies h eat intolerance. R espiratory: Patient denies c ough, shortness of breath. ? C ardiovascular: Patient complains of c hest pain. G astrointestinal: Patient complains of d iarrhea, vomiting. H ematology: Patient complains of e asy bruising. M usculoskeletal: Patient complains of s ee HPI. S kin: Patient complains of s ee HPI. N eurologic: Patient complains of t ingling / numbness. P sychiatric: Patient complains of a nxiety, difficulty sleeping. ? * Medical History: * Surgical History: c [...] Tablet 1.5 tablets Orally every 8 hrs Medication List reviewed and reconciled with the patientTaking Jardiance 25 MG Tablet 1 tablet Orally [...] Tablet 1.5 tablets Orally every 8 hrs Medication List reviewed and reconciled with the patient * Allergies: m etFORMIN HClShrimp (Diagnostic)no[Allergies Verified] Objective: * Vitals: B P:150/90mm Hg, HR:95/min, Temp:97.0F, Oxygen sat %:96%, Wt:192.5lbs, Ht:65in, BMI:32.03Index. * Examination: G eneral Examination: General appearance: a lert, well-nourished and in no acute distress . Head: n ormocephalic, atraumatic . Eyes: n ormal. Ears: n ormal . Neck / thyroid: n víctor is supple, with full range of motion.? Lymph nodes: n o cervical lymphadenopathy. Skin: s kin is warm and dry, with no rashes . Heart: r egular rate and rhythm. Lungs: c lear to auscultation bilaterally. Abdomen: s oft, nontender. P sychiatry: Affect / mood: a ppropriate. R heumatology: J OINT EXAM: R hand PIPs tender, no swelling, L hand: PIPs and MCPs tender, CMC tender, no swelling, dariel MTPs tender, +pain in hips with rotations, trigger points: neck, lumbar, scapular, trapezius, L hip and L knee. N eurology: n onfocal. Assessment: * Assessment: 1. P ain in unspecified joint - M25.50 (Primary) 2 . A NA positive - R76.8 3 . P ain in right hand - M79.641 4 . P ain in left hand - M79.642 5 . P ain in right foot - M79.671 6 . P ain in left foot - M79.672 7 . F ibromyalgia - M79.7 58 year old female with posi tive GERMAN, joint pain and back pain. I am asked to evaluate her for connective tissue disease. Additional labs will be ordered. Xrays of the feet and hands will be ordered. She likely also has fibromyalgia type of process as she has several trigger points on examination. She will continue lyrica, cymbalta, mobic and robaxin for now. Follow up virtual visit will be scheduled. Plan: * Treatment: ?Imaging: X ray : Foot, left * ?Imaging: X ray : Foot, right* * Procedure Codes: * Follow Up: 2 Weeks (Reason: f/u) * Billing Information: * Visit Code: 49255 Office Visit, New Pt., Level 4. * Procedure Codes: * H MINISTRY DIRECTOR Sign off status: Completed true * Provider: Carrie MENESES MD Date: 08/12/2023 Generated for Rajesh harrison/Izzy/Mattitting on: 0 08/27/2024 04:59 PM YOUTH MINISTRY DIRECTOR History and Physical Notes * HPI (History of Present Illness) Category Sub-Category Detail Notes Category Not es positive GERMAN Legs, hands, feet and back have been hurting since age 33. The pain is constant and worse at night and in the morning. The pain is severe per patient. She has noticed swelling in the hands. am stiffness: 45 minutes. Gabapentin 600mg tid did not help. She just started lyrica. Mobic and robaxin have helped a little. Cymbalta has helped with anxiety. It has not helped with pain. She has had trouble sleeping and admits to snoring. Sleep study has been ordered. She was told that she had rheumatoid arthritis and lupus by a doctor in [place]. She was diagnosed with myofascial pain and fibromyalgia by Dr. Rosado.several years ago. 07/03/2023, GERMAN 1:80 (cytoplasmic, fibrillar linear), cascade (-), RF/CCP (-), C3 and C4 normal. ACL and [id number] (-), UA: 3+glucose, LFTs normal, Cr 0.77, GFR 89, WBC/Hb/platelets normal, vit B12 876, vit D 36 ROS: occasional oral ulcers, +dry mouth, +dry eyes, +rash on the legs, +some hair loss, +photosensitivity, no Raynaud's, +one still at 8 months Mother: RA, lupus and gout Examination Category Sub-Category Detail Notes Category Not es Rheumatology JOINT EXAM: R hand PIPs tender, no swelling, L hand: PIPs and MCPs tender, CMC tender, no swelling, dariel MTPs tender, +pain in hips with rotations, trigger points: neck, lumbar, scapular, trapezius, L hip and L knee Neurology nonfocal Psychiatry Affect / mood: appropriate General Examination General appearance: alert, w ell-nourished and in no acute distress Head: normocephalic, atrau matic Eyes: normal Ears: normal Neck / thyroid: neck is supple, with full range of motion Heart: regular rate and rhy thm Lungs: clear to auscultatio n bilaterally Abdomen: soft, nontender Skin: skin is warm and dry , with no rashes Lymph nodes: no cervical lymphade nopathy
--- OUTSIDE RECORDS SUMMARY | 2024-08-27 17:00 | XMS_ITS | Patient Health Record ---
Author Organization [facility] dallin Address [address] [place] [address] Care Team Providers Care Construction Cost Estimator Name Role Phone Viraj Constantino MD Primary Care Provider Unavailabl e Allergies Allergen (clinical drug ingredient) Drug/Non Drug Allergy documented on EMR Reaction Allergy Type Onset Date Status metformin metFORMIN HCl Unknown Drug Allergy Act gina shrimp allergenic extract Shrimp (Diagnostic) Unknown Drug Allergy Active Reason For Referral No Information Medications Medication SIG (Take, Route, Frequency, Duration) Notes Start Date End Date Status Pregabalin 150 MG 1 capsule Orally twi ce a day for 30 days 08/26/2023 Active Jardiance 25 MG 1 tablet Orally Once a day for 30 day(s) Active Methocarbamol 500 MG 1.5 tablets Orally every 8 hrs for 30 day(s) Active Pregabalin 75 MG 1 capsule Orally Twi ce a day Active Losartan Potassium-HCTZ 50-12.5 MG 1 tablet Orally Once a day for 30 day(s) Active Meloxicam 15 MG 1 tablet Orally Once a day for 30 day(s) Active DULoxetine HCl 60 MG 1 capsule Orally On ce a day for 30 day(s) Active Social History Tobacco Use: Social History Observation Description Date Details (start date - stop date) Never Smoker NA - NA Household Question Answer Notes Marital status: Number of children in household: 1 Tobacco Control (Standard) Question Answer Notes Tobacco use: Nonsmoker Problems Problem Type SNOMED Code ICD Code Onset Dates Problem Status W/U Status Risk Notes Problem 898244409 Fibromyalgia (M79.7) Active confirmed Problem 298232674 Osteoarthritis, unspecified osteoarthritis type, unspecified site (M19.90) Active confirmed Plan Of Treatment Pending Test Test Name Order Date X ray : Foot, left 08/12/2023 X ray : Foot, right 08/12/2023 X ray : Hands, bilateral 08/12/2023 Creatine Kinase,Total,Serum 08/12/2023 G-6-PD, Quant, Blood and RBC 08/12/2023 Sedimentation Rate-Westergren 08/12/2023 C-Reactive Protein, Quant 08/12/2023 Lupus Anticoagulant Reflex 08/12/2023 Hepatitis BsAg 08/12/2023 Hepatitis C antibody 08/12/2023 Insurance Providers Payer Name Payer Address Payer Phone Subscriber Number Group Number Insured Name Patient Relationship to Insured Coverage Start Date Coverage End Date UHC Medicare Advantage [facility] [address] [address] [place] [address] [phone] [id number] Cate Francois Self - patient is the insured Medical (General) History Medical History History ICD Code hyperlipidemia hypertension diabetes thyroid nodule anxiety rheumatoid arthritis lupus fibromyalgia stroke GERD IBS neuropathy cervical disc disease Surgical History Surgery Date(Month/Year) cholecystectomy hysterectomy
[2024-08-27 17:04] VITALS: BP 158/95; PULSE 99; RESP 18; TEMP 36.6; O2SAT 100
--- NOTE | 2024-08-27 17:55 | ECG_ITS ---
Test Date: 2024-08-27 18:03:57 Measurements Intervals [place] Rate: 86 P: 50 ND: 184 QRS: 11 QRSD: 83 T: -16 QT: 346 QTc: 415 Interpretive Statements SINUS RHYTHM POSSIBLE LEFT ATRIAL ENLARGEMENT LOW QRS VOLTAGE IN PRECORDIAL LEADS CANNOT R/O SEPTAL INFARCT, AGE INDETERMINATE BORDERLINE ST-T WAVE ABNORMALITY- ANTEROLAT/INF LEADS ABNORMAL ECG Compared to ECG 03/21/2024 15:21:50 NO SIGNIFICANT CHANGE Electronically Signed On 08-27-2024 19:02:35 CELLOPHANE WRAPPING EXAMINER by Brennan Daigle D.O.
--- NOTE | 2024-08-27 17:56 | ED.URI ---
HPI - URI/Sore Throat General Chief Complaint: Upper Respiratory Infection <Jaimee Olmedo PA-C - Last Filed: 08/27/24 17:59> Stated Complaint: short of breath <Jaimee Olmedo PA-C - Last Filed: 08/27/24 17:59> Time Seen by Provider: 08/27/24 18:44 <Jaimee Olmedo PA-C - Last Filed: 08/27/24 17:59> Focused HPI: 59 y/o F with a PMHx of DM and HTN presents to the ED for dyspnea and chest pain x1 day. Patient states for approximately 2 weeks she has been sick with flu-like symptoms which consists of cough and congestion. Yesterday she began feeling short of breath and developing chest pain. She states the pain is a tight sensation it starts in her mid sternum and wraps around to her back. She states the pain is worse with coughing and inspiration. She reports a productive cough with thick phlegm. Patient reports body aches and hot flashes. She denies personal history of cardiac disease but does state her mother has CAD. She does not smoke. GENERAL: Well-appearing, well-nourished, and in no acute distress. HEAD: Normocephalic, atraumatic. CHEST: Clear to auscultation. ?No respiratory distress. HEART: Regular rate and rhythm.? NEURO: ?Alert and oriented x3. Patient screened in triage and initial orders placed.? ?Additional care and disposition to be based upon?diagnostic testing and treatment. <Jaimee Olmedo PA-C - Last Filed: 08/27/24 17:59> History of Present Illness HPI Narrative: Agree with with the HPI as described above <Angus Harden MD - Last Filed: 08/27/24 20:46> Related Data Home Medications: Home Medications ?Medication ?Instructions ?Recorded ?Confirmed ?Last Taken ?Type duloxetine 20 mg capsule,delayed 60 mg PO DAILY 08/22/23 03/21/24 03/21/24 09:00 History release sprinkle empagliflozin 25 mg tablet 25 mg PO DAILY 08/22/23 03/21/24 03/21/24 09:00 History (Jardiance) losartan 50 mg-hydrochlorothiazide 1 tablet PO DAILY 08/22/23 03/21/24 03/21/24 09:00 History 12.5 mg tablet tirzepatide 2.5 mg/0.5 mL 2.5 mg subcut WEEKLY 09/18/23 03/21/24 03/15/24 09:00 History subcutaneous pen injector (Cait) pregabalin 150 mg capsule 150 mg PO BID 03/21/24 03/21/24 03/04/24 History <Jaimee Olmedo PA-C - Last Filed: 08/27/24 17:59> Allergies/Adverse Reactions: Allergies Allergy/AdvReac Type Severity Reaction Status Date / Time Fish Containing Products Allergy Anaphylaxis Verified 03/21/24 12:14 metformin Allergy Nausea and Verified 03/21/24 12:14 Vomiting shrimp Allergy Anaphylaxis Verified 03/21/24 12:14 <Jaimee Olmedo PA-C - Last Filed: 08/27/24 17:59> Review of Systems Review of Systems: as described above in HPI <Angus Harden MD - Last Filed: 08/27/24 20:46> [facility] Past Medical History Medical History: Medical History (Updated 08/27/24 @ 20:45 by Angus Harden MD) Hypertension Type 2 diabetes mellitus Stroke Brain CT in January 2023 showed no evidence of prior infarct. Fibromyalgia <Jaimee Olmedo PA-C - Last Filed: 08/27/24 17:59> Surgical History Surgical History: Surgical History (Updated 03/21/24 @ 16:14 by Liz Armstrong PA-C) History of tubal ligation History of umbilical hernia repair Robotic laparoscopic repair 3 cm umbilical hernia with mesh 09/04/23 JESUS History of cholecystectomy Open cholecystectomy <Jaimee Olmedo PA-C - Last Filed: 08/27/24 17:59> Family History Family History: Family History Other Cerebrovascular accident Diabetes mellitus Heart disease Hypertension <Jaimee Olmedo PA-C - Last Filed: 08/27/24 17:59> Social History Social History: Social History (Updated 03/21/24 @ 23:51 by Liz Armstrong PA-C) Social History: Surrogate medical decision maker: Jagruti Powers, sibling. Code status: Full code. Smoking status: Never smoker Alcohol intake: current Substance use: never Substance use type: does not use Do You Feel Safe in your Home?: Yes Lack of Transportation: No Lack of Food: Never True Current Housing: I Have Housing Concerned About Future Housing: YES Difficulty Paying Gas/Electric Bills: No Difficulty Paying for Meds: No Currently Unemployed: No Education: High School Diploma/GED Difficulty w/ Childcare or Family Care: No Living arrangements: with family Occupation/Education: other Additional occupation/education comments: On disability. Spiritual care concerns: No <Jaimee Olmedo PA-C - Last Filed: 08/27/24 17:59> Exam Narrative: GENERAL: [Well-appearing, well-nourished, and in no acute distress.] HEAD: [Normocephalic, atraumatic.] EYES: [PERRLA and EOMI.] ENT: Nares clear, no rhinorrhea or epistaxis. Mucous membranes moist. NECK: Supple. CHEST: [Clear to auscultation. No respiratory distress.] HEART: [Regular rate and rhythm]. No murmur heard. [Normal peripheral pulses.] ABDOMEN: [Soft, nondistended], [nontender], [No rigidity or guarding] EXTREMITIES: Normal range of motion. [No edema.] SKIN: Warm, dry, no rash. NEURO: [No focal deficits]. Alert and oriented [x3.] PSYCH: [Normal mood and affect.] <Angus Harden MD - Last Filed: 08/27/24 20:46> Course Vital Signs Vital signs: Vital Signs Temperature 36.6 C 08/27/24 17:04 Pulse Rate 99 08/27/24 17:04 Respiratory Rate 18 08/27/24 17:04 Blood Pressure 158/95 H 08/27/24 17:04 Pulse Oximetry 100 08/27/24 17:04 Oxygen Delivery Room Air 08/27/24 17:04 Temperature 36.6 C 08/27/24 17:04 Pulse Rate 99 08/27/24 17:04 Respiratory Rate 18 08/27/24 17:04 Blood Pressure 158/95 H 08/27/24 17:04 Pulse Oximetry 100 08/27/24 17:04 Oxygen Delivery Room Air 08/27/24 18:51 <Jaimee Olmedo PA-C - Last Filed: 08/27/24 17:59> Vital Signs Temperature 36.6 C 08/27/24 17:04 Pulse Rate 99 08/27/24 17:04 Respiratory Rate 18 08/27/24 17:04 Blood Pressure 158/95 H 08/27/24 17:04 Pulse Oximetry 100 08/27/24 17:04 Oxygen Delivery Room Air 08/27/24 17:04 Temperature 36.6 C 08/27/24 17:04 Pulse Rate 99 08/27/24 17:04 Respiratory Rate 18 08/27/24 17:04 Blood Pressure 158/95 H 08/27/24 17:04 Pulse Oximetry 100 08/27/24 17:04 Oxygen Delivery Room Air 08/27/24 18:51 <Angus Harden MD - Last Filed: 08/27/24 20:46> MDM - URI/Sore Throat MDM Narrative Medical decision making narrative: 59-year-old female presenting with 2 weeks of upper respiratory infection type symptoms. she states that she is having some pleuritic chest discomfort today and was otherwise in her normal state of health prior to the URI symptoms. No recent injuries or illnesses. No hospitalizations recently. She has been trying some [id number]-lur-[id number] remedies with some mild improvement symptoms. Has not had any kind of antibiotics. Workup including CBC, CMP, PT, PTT, troponin, COVID swabs, BNP, lipase and chest x-ray with EKG were obtained given her complaints of chest discomfort. Suspicion for ACS is less likely, but potential for pneumonia, bronchitis, pleurisy. workup today revealed no leukocytosis or anemia. Negative troponin, negative BNP. Electrolytes without any significant derangements, normal renal function panel. Normal glucose and normal hepatic function panel. Negative lipase. COVID flu and RSV swabs are negative, chest x-ray shows no infiltrate or effusion. EKG was normal sinus rhythm with no signs of acute ischemic changes. Patient was re-evaluated in given the workup findings. At this time given her persistent symptoms and discussion of potential treatment modalities plan will be to discharge her home with a Medrol Dosepak and some albuterol as needed for her bronchitis type symptoms. Patient expressed understanding and verbalized follow-up instructions with her PCP and return precautions. <Angus Harden MD - Last Filed: 08/27/24 20:46> Medical Records Attestation: I reviewed the patient's medical records. <Angus Harden MD - Last Filed: 08/27/24 20:46> Lab Data Attestation: I reviewed the patient's lab results. <Angus Harden MD - Last Filed: 08/27/24 20:46> Result diagrams: 08/27/24 18:12 08/27/24 18:12 <Jaimee Olmedo PA-C - Last Filed: 08/27/24 17:59> Labs: Lab Results 08/27/24 Range/Units 18:12 WBC 6.6 (4.5-10.0) K/mm3 RBC 4.71 (4.2-5.4) M/mm3 Hgb 13.5 (12.0-15.0) g/dL Hct 40.5 (37.0-47.0) % MCV 86.0 (80-100) fl MCH 28.7 (26-34) pg MCHC 33.3 (32-36) g/dl RDW 12.6 (11.5-14.5) % Plt Count 278 (150-375) k/mm3 MPV 10.8 H (7.4-10.4) fl Immature Gran % (Auto) 0.2 (0-0.5) % Neut % (Auto) 57.0 (45.5-73.1) % Lymph % (Auto) 33.0 (18.3-44.2) % [place] % (Auto) 5.1 (2.6-8.5) % Eos % (Auto) 4.4 (0-4.4) % Baso % (Auto) 0.3 (0.2-1.2) % Lymph # (Auto) 2.19 (0.9-3.2) K/mm3 [place] # (Auto) 0.3 (0.1-0.6) K/mm3 Eos # (Auto) 0.3 (0-0.3) K/mm3 Baso # (Auto) 0.0 (0.0-0.1) K/mm3 Abs Immat Gran (auto) 0.01 (0.00-0.031) K/mm3 Absolute Neuts (auto) 3.8 (1.3-6.7) K/mm3 Absolute Nucleated RBC 0.000 (0.0-0.012) K/mm3 Nucleated RBC % 0.0 (0.0-0.2) % PT 12.2 (11.1-14.7) Seconds INR 0.9 APTT 28.8 (22.3-36.8) Seconds Sodium 140 (137-145) mmol/L Potassium 3.3 L (3.4-5.0) mmol/L Chloride 105 (98-107) mmol/L Carbon Dioxide 28 (22-30) mmol/L Anion Gap 7 (4-12) mmol/L BUN 12 D (7-17) mg/dL Creatinine 0.61 L (0.7-1.0) mg/dL Estim Creat Clear Calc 88 ml/min Estimated GFR > 60 (59 - ) Glucose 128 H (65-110) mg/dL Calcium 9.7 (8.4-10.2) mg/dL Total Bilirubin 0.5 (0.2-1.3) mg/dL AST 18 (14-36) U/L ALT 18 (6-35) U/L Alkaline Phosphatase 113 (38-126) U/L Troponin I < 0.012 (0.000-0.034) ng/mL NT-Pro-B Natriuret Pep 32 (19.9-100) pg/mL Total Protein 7.0 (6.3-8.2) g/dL Albumin 4.4 (3.5-5.1) g/dL Lipase 102 (23-300) U/L Influenza A (RT-PCR) Negative (Negative) Influenza B (RT-PCR) Negative (Negative) RSV (RT-PCR) Negative (Negative) SARS-CoV-2 RNA (RT-PCR) Negative (Negative) <Jaimee Olmedo PA-C - Last Filed: 08/27/24 17:59> Lab Results 08/27/24 Range/Units 18:12 WBC 6.6 (4.5-10.0) K/mm3 RBC 4.71 (4.2-5.4) M/mm3 Hgb 13.5 (12.0-15.0) g/dL Hct 40.5 (37.0-47.0) % MCV 86.0 (80-100) fl MCH 28.7 (26-34) pg MCHC 33.3 (32-36) g/dl RDW 12.6 (11.5-14.5) % Plt Count 278 (150-375) k/mm3 MPV 10.8 H (7.4-10.4) fl Immature Gran % (Auto) 0.2 (0-0.5) % Neut % (Auto) 57.0 (45.5-73.1) % Lymph % (Auto) 33.0 (18.3-44.2) % [place] % (Auto) 5.1 (2.6-8.5) % Eos % (Auto) 4.4 (0-4.4) % Baso % (Auto) 0.3 (0.2-1.2) % Lymph # (Auto) 2.19 (0.9-3.2) K/mm3 [place] # (Auto) 0.3 (0.1-0.6) K/mm3 Eos # (Auto) 0.3 (0-0.3) K/mm3 Baso # (Auto) 0.0 (0.0-0.1) K/mm3 Abs Immat Gran (auto) 0.01 (0.00-0.031) K/mm3 Absolute Neuts (auto) 3.8 (1.3-6.7) K/mm3 Absolute Nucleated RBC 0.000 (0.0-0.012) K/mm3 Nucleated RBC % 0.0 (0.0-0.2) % PT 12.2 (11.1-14.7) Seconds INR 0.9 APTT 28.8 (22.3-36.8) Seconds Sodium 140 (137-145) mmol/L Potassium 3.3 L (3.4-5.0) mmol/L Chloride 105 (98-107) mmol/L Carbon Dioxide 28 (22-30) mmol/L Anion Gap 7 (4-12) mmol/L BUN 12 D (7-17) mg/dL Creatinine 0.61 L (0.7-1.0) mg/dL Estim Creat Clear Calc 88 ml/min Estimated GFR > 60 (59 - ) Glucose 128 H (65-110) mg/dL Calcium 9.7 (8.4-10.2) mg/dL Total Bilirubin 0.5 (0.2-1.3) mg/dL AST 18 (14-36) U/L ALT 18 (6-35) U/L Alkaline Phosphatase 113 (38-126) U/L Troponin I < 0.012 (0.000-0.034) ng/mL NT-Pro-B Natriuret Pep 32 (19.9-100) pg/mL Total Protein 7.0 (6.3-8.2) g/dL Albumin 4.4 (3.5-5.1) g/dL Lipase 102 (23-300) U/L Influenza A (RT-PCR) Negative (Negative) Influenza B (RT-PCR) Negative (Negative) RSV (RT-PCR) Negative (Negative) SARS-CoV-2 RNA (RT-PCR) Negative (Negative) <Angus Harden MD - Last Filed: 08/27/24 20:46> Imaging Data Attestation: I personally reviewed and interpreted this imaging study as follows: <Angus Harden MD - Last Filed: 08/27/24 20:46> My impression: Impressions Chest X-Ray 08/27/24 18:31 IMPRESSION: No focal infiltrate or effusion. <Angus Harden MD - Last Filed: 08/27/24 20:46> Discharge Plan Discharge Clinical Impression: Bronchitis, URI (upper respiratory infection), Acute viral syndrome <Jaimee Olmedo PA-C - Last Filed: 08/27/24 17:59> Patient Disposition: Home, Self-Care <Jaimee Olmedo PA-C - Last Filed: 08/27/24 17:59> Condition: Stable <Jaimee Olmedo PA-C - Last Filed: 08/27/24 17:59> Instructions: Antibiotic Form, Acute Bronchitis (ED), Viral Syndrome (ED) <Jaimee Olmedo PA-C - Last Filed: 08/27/24 17:59> Additional Instructions: We will send you home with treatments including Medrol Dosepak and as needed albuterol, continue taking Tylenol and ibuprofen for any residual pain or aches, follow-up with regular doctor, if you have any worsening symptoms or new concerns you can always get repeat evaluation in the ER. <Jaimee Olmedo PA-C - Last Filed: 08/27/24 17:59> Patient Language: Mongolian <Jaimee Olmedo PA-C - Last Filed: 08/27/24 17:59> Prescriptions: New methylprednisolone [Medrol (Bart)] 4 mg tablets,dose pack See Rx Instructions .ROUTE .COMPLEX Qty: 21 0RF Rx Instructions: orally per package directions albuterol sulfate 90 mcg/actuation HFA aerosol inhaler 2 puff inhalation QID PRN (Reason: shortness of breath or wheezing) Qty: 8.5 0RF No Action Mounjaro 2.5 mg/0.5 mL pen injector 2.5 mg subcut WEEKLY Rx Instructions: on Friday pregabalin 150 mg Capsule 150 mg PO BID losartan-hydrochlorothiazide 50-12.5 mg tablet 1 tablet PO DAILY Jardiance 25 mg tablet 25 mg PO DAILY duloxetine 20 mg Capsule, Delayed Rel Sprinkle 60 mg PO DAILY <Jaimee Olmedo PA-C - Last Filed: 08/27/24 17:59> Follow-up/Referrals: Viraj Constantino MD [Primary Care Provider] - <Jaimee Olmedo PA-C - Last Filed: 08/27/24 17:59> Time of Disposition: 20:45 <Jaimee Olmedo PA-C - Last Filed: 08/27/24 17:59> 20:45 <Angus Harden MD - Last Filed: 08/27/24 20:46>
[2024-08-27 18:19] LABS: Basophils Percent Auto 0.3 % (0.2-1.2); Eosinophils Absolute Auto 0.3 K/mm3 (0-0.3); Eosinophils Percent Auto 4.4 % (0-4.4); Hematocrit 40.5 % (37.0-47.0); Hemoglobin 13.5 g/dL (12.0-15.0); Immature Granulocyte Absolute 0.01 K/mm3 (0.00-0.031); Immature Granulocyte Percent A 0.2 % (0-0.5); Lymphocytes Absolute Auto 2.19 K/mm3 (0.9-3.2); Mean Corpuscular HGB Conc 33.3 g/dl (32-36); Mean Corpuscular Hemoglobin 28.7 pg (26-34); Mean Platelet Volume 10.8 fl (7.4-10.4); Monocytes Absolute Auto 0.3 K/mm3 (0.1-0.6); Monocytes Percent Auto 5.1 % (2.6-8.5); Neutrophils Absolute Auto 3.8 K/mm3 (1.3-6.7); Platelet Count Result 278 k/mm3 (150-375); Red Blood Count 4.71 M/mm3 (4.2-5.4); Red Cell Distribution Width 12.6 % (11.5-14.5); White Blood Count 6.6 K/mm3 (4.5-10.0)
[2024-08-27 18:30] LABS: INR 0.9; Prothrombin Time 12.2 Seconds (11.1-14.7)
[2024-08-27 18:31] LABS: Partial Thromboplastin Time 28.8 Seconds (22.3-36.8)
[2024-08-27 18:37] LABS: Alanine Aminotransferase 18 U/L (6-35); Albumin Level 4.4 g/dL (3.5-5.1); Alkaline Phosphatase 113 U/L (38-126); Anion Gap 7 mmol/L (4-12); Aspartate Amino Transferase 18 U/L (14-36); Bilirubin,Total 0.5 mg/dL (0.2-1.3); Blood Urea Nitrogen 12 mg/dL (7-17); Calcium 9.7 mg/dL (8.4-10.2); Carbon Dioxide 28 mmol/L (22-30); Chloride 105 mmol/L (98-107); Estimated CRCL calculation 88 ml/min; Estimated Glomerular Filt Rate > 60; Glucose 128 mg/dL (65-110); Lipase 102 U/L (23-300); Potassium 3.3 mmol/L (3.4-5.0); Sodium 140 mmol/L (137-145)
[2024-08-27 18:48] LABS: NT Pro B Type Natriuretic Pept 32 pg/mL (19.9-100); Troponin I < 0.012 ng/mL (0.000-0.034)
[2024-08-27 18:55] LABS: Influenza A QL RT-PCR Negative (Negative); Influenza B QL RT-PCR Negative (Negative); RSV RNA, RT-PCR Negative (Negative); SARS-CoV-2 RNA PCR Negative (Negative)
--- OUTSIDE RECORDS SUMMARY | 2024-08-27 18:56 | XMS_ITS | Clinical Summary ---
Author Organization [facility] Address [address] [place] [id number] Care Team Providers Care Operations Support Specialist Name Role Phone Unavailable Primary Care Provider [...]
--- OUTSIDE RECORDS SUMMARY | 2024-08-27 18:56 | XMS_ITS | Referral Summary ---
Author Organization [facility] [place] [address] Address [address] [place] [phone] Care Team Providers Care Loan Officer Assistant Name Role Phone Babak Traylor MD [facility] [place] Unavailable Encounters Date Type Department Care Team Description 06/30/2024 ACO Quality [facility] Care [address] [address] Irina Esparza 06/30/2024 Orders Only [address] [address] Pierre Harris MD 06/06/2024 ACO Outreach [address] [address] Suze Ceballos MA 06/04/2024 ACO Clinical Pharmacist [address] [address] Rosetta Moffett RPh 06/02/2024 Telephone [facility] Primary Care at [address] [address] Rosetta Moffett RPh Med Management ([facility] Statin Gaps in Care) 06/02/2024 ACO Clinical Pharmacist [address] [address] Rosetta Moffett RPh from Last 3 Months [...] 09/26/2021 Assessment & Plan (09/26/2021 12:25 PM JOINT CUTTER): zofran PRN for nausea; will consider gall [...] 09/04/2021 Assessment & Plan (09/05/2021 10:34 AM JOINT CUTTER): A initial Medicare Annual Wellness Visit has [...] PCP Assessment & Plan (08/21/2023 9:19 AM JOINT CUTTER): Patient is complaining of bilateral breast pain [...] up. Assessment & Plan (09/14/2022 2:07 PM JOINT CUTTER): Will try to resume Ladi Discussed insulin, and its place in type 2 diabetes. We will consider, but I want to get the Trulicity going again Switching from lisinopril to losartan Watch BP after switch. Will want BP to settle in 120's/70's Assessment & Plan (06/10/2022 10:59 PM JOINT CUTTER): Continuing lisinopril, Trulicity, Jardiance Obesity 05/28/2005 Overview [...] and Family Not on file 09/05/2021 Attends [employer] Not on file 09/05 Active Member [...] staff should administer the PHQ-9) 0 06/03/2023 [facility] - Occupational Stress [...] place to sleep or slept in a prison (including now)? No 09/05/2021 Education Answer Date Recorded What is the highest level of school you have completed or the highest degree you have received? Some college, no degree 09/04/2021 Comments No Sex and Gender Information Value Date Recorded Sex Assigned at Not on file Legal Sex Female 7:27 PM JOINT CUTTER Gender Identity Not on file Sexual Orientation Not on file Occupation Industry Job Start Date Job End Date [employer] Not on file Not on file Not on file Last Filed Vital Signs Vital Sign Reading Time Taken Comments Blood Pressure 124/70 08/21/2023 8:48 AM JOINT CUTTER Pulse 68 06/03/2023 9:59 AM JOINT CUTTER Temperature 36.1 C (97 F) 06/03/2023 9:59 AM JOINT CUTTER Respiratory Rate 17 06/03/2023 9:59 AM JOINT CUTTER Oxygen Saturation 97% 06/03/2023 9:59 AM JOINT CUTTER Inhaled Oxygen Concentration - - Weight 85.7 kg (188 lb 14.4 oz) 08/21/2023 8:48 AM JOINT CUTTER Height 165.1 cm (5' 5 ) 09/11/2023 8:43 AM JOINT CUTTER Body Mass Index 31.43 08/21/2023 8:48 AM JOINT CUTTER Plan of Treatment Not on file Procedures Procedure Name Priority Date/Time Associated Diagnosis Comments HM HEMOGLOBIN A1C Routine 03/22/2024 12: 44 PM CDT DIAGNOSTIC MAMMOGRAM BILATERAL W ANABEL Schedule Routine, Read Routine (OP Routine) 09/11/2023 8:57 AM JOINT CUTTER Breast pain HEPATITIS C ANTIBODY Routine 08/12/2023 12:09 PM JOINT CUTTER EGFR Routine 05/08/2023 8:38 AM CDT Hypertension [...] MAMMOGRAM BILATERAL W ANABEL (09/11/2023 8:57 AM JOINT CUTTER) Anatomical Region Laterality Modality Breast Bilateral Mammography 09/11/2023 9:28 AM JOINT CUTTER Impressions 09/11/2023 9:28 AM JOINT CUTTER 1. No suspicious finding on either mammogram [...] David Winters M.D. Narrative 09/11/2023 9:28 AM JOINT CUTTER EXAMINATION: DIAGNOSTIC MAMMOGRAM BILATERAL W ANABEL, US [...] Hepatitis C antibody Blood (08/12/2023 12:09 PM JOINT CUTTER) Hep C Ab Nonreactive Nonreactive JO[facility] Comment: Interpretive Data Nonreactive: Antibodies to [...] on 2019. Blood 08/12/2023 12:0 9 PM JOINT CUTTER 08/12/2023 2:38 PM JOINT CUTTER Elizabeth Silveira MD LAB MICROBIOLOGY - GENERAL ORDER DAVID Final Result [facility] [address] Department of Laboratories [place], [place] [id number] * eGFR (05/08/2023 8:38 AM CDT) eGFR [...] MD LAB BLOOD ORDERABLES Final Result [facility] [address] [address] Department [place] [address] * (ABNORMAL) Albumin Creatinine Ratio, Urine (05/08/2023 [...] MD LAB URINE ORDERABLES Final Result [facility] [address] [facility] Department [place] [address] * (ABNORMAL) Lipid panel (05/08/2023 8:38 AM [...] BLOOD ORDERABLES Final Result Performing Organization Address City/State/[facility] Co de Phone Number JOSE[facility] [address] Department [place] [address] * DIABETES EYE EXAM (11/07/2022) Historical Provider HEALTH MAINTENANCE Final Result * COLONOSCOPY (05/08/2020) Historical Provider HEALTH MAINTENANCE Final Result from Last 3 Months or Most Recently Relevant to Health Maintenance Insurance MEDICARE [employer] [facility] MEDICARE Address: [address] [address] [place] [address] MEDICARE [employer] [facility] MEDICARE Address: [id number] [place] [address] MEDICARE [employer] [facility] MEDICARE Address: [address] [address] [place] [address] Care Teams Loan Officer Assistant Relationship Specialty Start Date End Date Babak Traylor MD [address] [place] [id number] PCP - General Family Medicine 09/04/21 Ellen Leonard Sr., [address] [place] [id number] Consulting Physician Gastroenterology 09/04/21
--- OUTSIDE RECORDS SUMMARY | 2024-08-27 18:56 | XMS_ITS | Encounter Summary ---
Author Organization [facility] Address [address] [place] [address] Care Team Providers Care Business Risk Consultant Name Role Phone Unavailable Primary Care Provider Unavailabl e Encounter Details Date Type Department Care Team (Late st Contact Info) Description 08/23/2008 Outpatient Historical [facility] Raheem Martínez, [address] [place] [phone] Mastodynia Social History Tobacco Use Types Packs/Day Years Used Date Smoking Tobacco: Never Assessed Comments Unknown Sex and Gender Information Value Date Recorded Sex Assigned at Not on file Legal Sex Female 2:47 AM PARKING WORKER Gender Identity Not on file Sexual Orientation Not on file documented as of this encounter Plan of Treatment Not on file documented as of this encounter Procedures Procedure Name Priority Date/Time Associated Diagnosis Comments US BREAST UNI RIGHT COMPLETE Routine 08/23/2008 2:25 PM PARKING WORKER MAMMO DIAGNOSTIC BILATERAL W OR WO CAD Routine 08/23/2008 1:47 PM PARKING WORKER documented in this encounter Results * US BREAST UNILATERAL RIGHT (08/23/2008 2:25 PM PARKING WORKER) Anatomical Region Laterality Modality Breast Right Other 08/23/2008 2:25 PM PARKING WORKER Narrative 08/24/2008 10:19 AM PARKING WORKER [facility] [address] [place], [place] [address] Admit Date: 08/23/2008 VALDEZ FRANCOIS Sex: F Admit Prov: RAHEEM HICKMAN Date: 1965 Primary Care Prov: RAHEEM HICKMAN CMRN: [id number] Room: ERICKA SSN: [id number] IMAGING SERVICES Ordering Prov: RAHEEM HICKMAN Accession Number: [id number] Interpretation BILATERAL FULL FIELD DIGITAL DIAGNOSTIC MAMMOGRAMS WITH COMPUTER AIDED DIAGNOSIS AND RIGHT BREAST ULTRASOUND Date: 08/23/2008 History: Intermittent bilateral breast tenderness. Comparison: [facility] Breast composition: Scattered fibroglandular densities. Findings: [...] AMK Procedure Note Leonel Michelle - 08/24/[address] [address] Admit Date: 08/23/2008 VALDEZ FRANCOIS Sex: F Admit Prov: RAHEEM HICKMAN Date: 1965 Primary Care Prov: RAHEEM HICKMAN CMRN: [id number] Room: FLORENCEAnette SSN: [id number] IMAGING SERVICES Ordering Prov: RAHEEM HICKMAN Interpretation BILATERAL FULL FIELD DIGITAL DIAGNOSTIC MAMMOGRAMS WITH COMPUTERAIDED DIAGNOSIS AND RIGHT BREAST ULTRASOUND Date: 08/23/2008 History: Intermittent bilateral breast tenderness. Comparison: July 2007 examination from [facility] Breast composition: Scattered fibroglandular densities. Findings: A [...] MAMMO DIGITAL DIAG BILAT (08/23/2008 1:47 PM PARKING WORKER) Anatomical Region Laterality Modality Breast Bilateral Other 08/23/2008 1:47 PM PARKING WORKER Narrative 08/24/2008 10:19 AM PARKING WORKER [address] [address] Admit Date: 08/23/2008 TSERINGVALDEZ Sex: F Admit Prov: RAHEEM HICKMAN Date: 1965 Primary Care Prov: RAHEEM HICKMAN CMRN: [id number] Room: ERICKA SSN: [id number] IMAGING SERVICES Ordering Prov: RAHEEM HICKMAN Accession Number: [id number] Interpretation BILATERAL FULL FIELD DIGITAL DIAGNOSTIC MAMMOGRAMS WITH COMPUTER AIDED DIAGNOSIS AND RIGHT BREAST ULTRASOUND Date: 08/23/2008 History: Intermittent bilateral breast tenderness. Comparison: [facility] Breast composition: Scattered fibroglandular densities. Findings: [...] AMK Procedure Note Leonel Michelle - 08/24/[address] [address] Admit Date: 08/23/2008 KRISTIN FRANCOISDESMOND Drew Sex: F Admit Prov: RAHEEM HICKMAN Date: 1965 Primary Care Prov: RAHEEM HICKMAN CMRN: [id number] Room: Anette SSN: [id number] IMAGING SERVICES Ordering Prov: RAHEME HICKMAN Interpretation BILATERAL FULL FIELD DIGITAL DIAGNOSTIC MAMMOGRAMS WITH COMPUTERAIDED DIAGNOSIS AND RIGHT BREAST ULTRASOUND Date: 08/23/2008 History: Intermittent bilateral breast tenderness. Comparison: July 2007 examination from [facility] Breast composition: Scattered fibroglandular densities. Findings: A [...]
--- OUTSIDE RECORDS SUMMARY | 2024-08-27 18:56 | XMS_ITS | Clinical Summary ---
Author Organization [facility] [address] [facility] [place] [address] Care Team Providers Care Crayon Grader Name Role Phone Babak Traylor MD [facility] [place] Unavailable Allergies Active Allergy Reactions [...] 09/26/2021 Assessment & Plan (09/26/2021 12:25 PM TUBING MACHINE TENDER): zofran PRN for nausea; will consider gall [...] 09/04/2021 Assessment & Plan (09/05/2021 10:34 AM TUBING MACHINE TENDER): A initial Medicare Annual Wellness Visit has been performed today. Cate Francios is not up to date on screening [...] associat ed with type 2 diabetes mellitus ([facility]/HCC) 11/09/2018 Thyroid nodule 09/23/2018 Overview (09/04/2021): Last [...] PCP Assessment & Plan (08/21/2023 9:19 AM TUBING MACHINE TENDER): Patient is complaining of bilateral breast pain [...] up. Assessment & Plan (09/14/2022 2:07 PM TUBING MACHINE TENDER): Will try to resume Ladi Discussed insulin, and its place in type 2 diabetes. We will consider, but I want to get the Jaimeity going again Switching from lisinopril to losartan Watch BP after switch. Will want BP to settle in 120's/70's Assessment & Plan (06/10/2022 10:59 PM TUBING MACHINE TENDER): Continuing lisinopril, Trulicity, Jardiance Obesity 05/28/2005 Overview [...] Department Care Team Description 06/30/2024 ACO Quality [facility] Accountable Care Organization [address] [place] [address] Irina Esparza 06/30/2024 Orders Only [facility] Care Organization [address] [place] [address] ProviderPierre MD 06/06/2024 ACO Outreach [address] [address] Suze Ceballos MA 06/04/2024 ACO Clinical Pharmacist [address] [address] Rosetta Moffett RPh 06/02/2024 Telephone [facility] Medical Group Primary Care at [address] [address] Rosetta Moffett RPh Med Management ([facility] Statin Gaps in Care) 06/02/2024 ACO Clinical Pharmacist [address] [address] Rosetta Moffett RPh from Last 3 Months [...] and Family Not on file 09/05/2021 Attends Church Services Not on file 09/05 Active Member [...] should administer the PHQ-9) 0 06/03/2023 [facility] of Occupat ional [facility] - Occupational Stress Questionnaire Answer Date [...] place to sleep or slept in a half-way (including now)? No 09/05/2021 Education Answer Date Recorded What is the highest level of school you have completed or the highest degree you have received? 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 on file Not on file Not [...] Comments Blood Pressure 124/70 08/21/2023 8:48 AM TUBING MACHINE TENDER Pulse 68 06/03/2023 9:59 AM TUBING MACHINE TENDER Temperature 36.1 C (97 F) 06/03/2023 9:59 AM TUBING MACHINE TENDER Respiratory Rate 17 06/03/2023 9:59 AM TUBING MACHINE TENDER Oxygen Saturation 97% 06/03/2023 9:59 AM TUBING MACHINE TENDER Inhaled Oxygen Concentration - - Weight 85.7 kg (188 lb 14.4 oz) 08/21/2023 8:48 AM TUBING MACHINE TENDER Height 165.1 cm (5' 5 ) 09/11/2023 8:43 AM TUBING MACHINE TENDER Body Mass Index 31.43 08/21/2023 8:48 AM TUBING MACHINE TENDER Plan of Treatment Health Maintenance Due Date [...] Read Routine (OP Routine) 09/11/2023 8:57 AM TUBING MACHINE TENDER Breast pain HEPATITIS C ANTIBODY Routine 08/12/2023 12:09 PM TUBING MACHINE TENDER EGFR Routine 05/08/2023 8:38 AM CDT Hypertension [...] MAMMOGRAM BILATERAL W ANABEL (09/11/2023 8:57 AM TUBING MACHINE TENDER) Anatomical Region Laterality Modality Breast Bilateral Mammography 09/11/2023 9:28 AM TUBING MACHINE TENDER Impressions 09/11/2023 9:28 AM TUBING MACHINE TENDER 1. No suspicious finding on either mammogram [...] David Winters M.D. Narrative 09/11/2023 9:28 AM TUBING MACHINE TENDER EXAMINATION: DIAGNOSTIC MAMMOGRAM BILATERAL W ANABEL, US [...] Hepatitis C antibody Blood (08/12/2023 12:09 PM TUBING MACHINE TENDER) Hep C Ab Nonreactive Nonreactive [facility] Comment: Interpretive Data Nonreactive: Antibodies to HCV [...] on 2019. Blood 08/12/2023 12:0 9 PM TUBING MACHINE TENDER 08/12/2023 2:38 PM TUBING MACHINE TENDER us Elizabeth Silveira MD LAB MICROBIOLOGY - GENERAL ORDER DAVID Final Result [facility] [address] Department of Laboratories [place], [place] [id number] * eGFR (05/08/2023 8:38 AM CDT) eGFR [...] BLOOD ORDERABLES Final Result Performing Organization Address [facility] de Phone Number JOSELINE GUZMAN [address] Department of [employer] [place] [address] * (ABNORMAL) Albumin Creatinine Ratio, Urine (05/08/2023 [...] URINE ORDERABLES Final Result Performing Organization Address [facility] Co de Phone Number JOSELINE THOMAS [address] [address] Department [place] [address] * (ABNORMAL) Lipid panel (05/08/2023 8:38 AM [...] Final Result Performing Organization Address City/State/ZIP Co az Phone Number JOSELINE [address] [place] Department [place] [address] * DIABETES EYE EXAM (11/07/2022) Historical Provider HEALTH MAINTENANCE Final Result * COLONOSCOPY (05/08/2020) Historical Provider HEALTH MAINTENANCE Final Result from Last 3 Months or Most Recently Relevant to Health Maintenance Insurance MEDICARE SOLUTIONS [facility] MEDICARE Address: [address] [address] [place] [address] MEDICARE [employer] [facility] MEDICARE Address: [address] [address] [place] [address] MEDICARE SOLUTIONS [facility] MEDICARE Address: [address] [address] [place] [address] Care Teams Crayon Grader Relationship Specialty Start Date End Date Babak Traylor MD [facility] [place] [address] PCP - General Family Medicine 09/04/21 Ellen Leonard Sr., [address] [place] [address] Consulting Physician Gastroenterology 09/04/21
--- OUTSIDE RECORDS SUMMARY | 2024-08-27 18:56 | XMS_ITS | Referral Summary ---
Author Organization [facility] Address [address] [place] [address] Care Team Providers Care Tire Trucker Name Role Phone Helen Ramirez DO Unavailable Nona Ayers MD Primary Care Provider [phone] Tono Rosado MD Unavailable [phone] Source Comments [facility],non-owned Affiliates and Associated Physician Practices is amultiple site organization consisting of ambulatory clinics and hospital sitesin [place], [place], [place] and [place]. This disclosure is being madepursuant to the Care Everywhere program and may not contain all information available regarding this patient. Last updated 18.[facility] Allergies No known active allergies Medications * [...] Comments Blood Pressure 145/95 09/11/2015 10:00 AM DRYWALL APPLICATION SUPERVISOR Pulse 77 09/11/2015 10:21 AM DRYWALL APPLICATION SUPERVISOR Temperature 35.9 C (96.6 F) 09/11/2015 9:42 AM DRYWALL APPLICATION SUPERVISOR Respiratory Rate 16 09/11/2015 10:21 AM DRYWALL APPLICATION SUPERVISOR Oxygen Saturation 100% 09/11/2015 10:21 AM DRYWALL APPLICATION SUPERVISOR Inhaled Oxygen Concentration - - Weight 92.1 kg (203 lb) 09/11/2015 9:03 AM DRYWALL APPLICATION SUPERVISOR Height 165.1 cm (5' 5 ) 09/11/2015 9:03 AM DRYWALL APPLICATION SUPERVISOR Body Mass Index 33.78 09/11/2015 9:03 AM DRYWALL APPLICATION SUPERVISOR Functional Status Functional Status Response Date of [...] ENDOSCOPY, COLON, SCREENING Routine 09/11/2015 9:20 AM DRYWALL APPLICATION SUPERVISOR LIPID PROFILE Routine 05/08/2010 2:39 PM CDT Dysmetabolic syndrome X Headache Black stool Dyspnea MAMMO BILAT SCREENING Routine 01/10/2010 3:35 PM CDT Other Screening Mammogram PAP IG LB CT+GC RFLX HPV HR ASCU 10/12/2008 9:56 AM CDT from Last 3 Months or Most Recently Relevant to Health Maintenance Results * ENDOSCOPY, COLON, SCREENING (09/11/2015 9:20 AM DRYWALL APPLICATION SUPERVISOR) Report Endoscopy POC _ Patient Name: Cate [...] 1 week. Procedure Code(s): --- Professional --- 37371, Colonoscopy, flexible; with biopsy, single or multiple --- Technical --- 35143, Colonoscopy, flexible; with biopsy, single or multiple [...] or abscess without bleeding CPT copyright 2014 [employer]. All rights reserved. The codes documented in this report are preliminary and upon tipple boss review may be revised to meet current compliance requirements. ___ Ellen Leonard DO 09/11/2015 9:40:41 AM This report has been signed electronically. Number of Addenda: 0 Note Initiated On: 09/11/2015 9:20 AM [facility] ENDOSCOPY 09/11/2015 9:20 AM DRYWALL APPLICATION SUPERVISOR Ellen Leonard DO GI PROCEDURE ORDERAB LES [facility] [place] [address] * LIPID PROFILE (05/08/2010 2:39 PM CDT) [...] PM CDT Narrative Resulting Agency Comment [facility] [place] [place] [address] [place] [id number] Paulino Hickman DO LAB - CHEMISTRY SANGITA OLIVEROS [facility] [...] if suspicious findings are present clinically. An [employer] Certified Facility Procedure Note [...] if suspicious findings are present clinically. An [employer] Certified Facility Paulino Hickman [...] ICD9 [facility] INSURANCE BILL Comment:V72.31 ; Routine buyer tobacco head ecological examination Performed by [facility] INSURANCE BILL Comment:Shana Blanca, Cyto technologist QC Reviewed by [facility] INSURANCE BILL Comment:Cheryl Cuellar Metal Cleaner (ASCP) Comment . [facility] INSURANCE BILL Note [...] Thin Prep Vial Resulting Agency Comment [facility] [address] [id number] Helen Ramirez DO LAB - PATHOLOGY/CYTO LOGY ORDERABLES [facility] INSURANCE BILL from Last 3 Months or Most Recently Relevant to Health Maintenance Care Teams Tire Trucker Relationship Specialty [place] [address] [facility] [address] [place] [address] PCP - OBGYN 11/21/08 Nona Ayers MD [facility] [place] [address] PCP - General Family Medicine 11/01/13 Tono Rosado MD [address] [place] [address] [address] [place] [address] Rheumatology 01/26/15
--- OUTSIDE RECORDS SUMMARY | 2024-08-27 18:56 | XMS_ITS | Encounter Summary ---
Author Organization [facility] Address [address] [place] [address] Care Team Providers Care Security Manager Name Role Phone Unavailable Primary Care Provider [...] on file Legal Sex Female 2:47 AM BRUSH MATERIAL PREPARER Gender Identity Not on file Sexual Orientation Not on file documented as of this encounter Plan of Treatment Not on file documented as of this encounter Visit Diagnoses Diagnosis Leiomyoma of uterus, unspecified- Primary documented in this encounter
--- OUTSIDE RECORDS SUMMARY | 2024-08-27 18:56 | XMS_ITS | Clinical Summary ---
Author Organization [facility] Address [address] [place] [address] Care Team Providers Care Sheetmetal Trades Worker Name Role Phone Helen Ramirez DO Unavailable Nona Ayers MD Primary Care Provider [phone] Tono Rosado MD Unavailable [phone] Source Comments [facility],non-owned Affiliates and Associated Physician Practices is amultiple site organization consisting of ambulatory clinics and hospital sitesin [place], [place], [place] and [place]. This disclosure is being madepursuant to the Care Everywhere program and may not contain all information available regarding this patient. Last updated 18.[facility] Allergies No known active allergies Medications * [...] Comments Blood Pressure 145/95 09/11/2015 10:00 AM FUR PLUCKER Pulse 77 09/11/2015 10:21 AM FUR PLUCKER Temperature 35.9 C (96.6 F) 09/11/2015 9:42 AM FUR PLUCKER Respiratory Rate 16 09/11/2015 10:21 AM FUR PLUCKER Oxygen Saturation 100% 09/11/2015 10:21 AM FUR PLUCKER Inhaled Oxygen Concentration - - Weight 92.1 kg (203 lb) 09/11/2015 9:03 AM FUR PLUCKER Height 165.1 cm (5' 5 ) 09/11/2015 9:03 AM FUR PLUCKER Body Mass Index 33.78 09/11/2015 9:03 AM FUR PLUCKER Plan of Treatment Health Maintenance Due Date [...] ENDOSCOPY, COLON, SCREENING Routine 09/11/2015 9:20 AM FUR PLUCKER LIPID PROFILE Routine 05/08/2010 2:39 PM CDT Dysmetabolic syndrome X Headache Black stool Dyspnea MAMMO BILAT SCREENING Routine 01/10/2010 3:35 PM CDT Other Screening Mammogram PAP IG LB CT+GC RFLX HPV HR ASCU 10/12/2008 9:56 AM CDT from Last 3 Months or Most Recently Relevant to Health Maintenance Results * ENDOSCOPY, COLON, SCREENING (09/11/2015 9:20 AM FUR PLUCKER) Report Endoscopy POC _ Patient Name: Cate [...] 1 week. Procedure Code(s): --- Professional --- 66037, Colonoscopy, flexible; with biopsy, single or multiple --- Technical --- 95011, Colonoscopy, flexible; with biopsy, single or multiple [...] or abscess without bleeding CPT copyright 2014 [employer]. All rights reserved. The codes documented in this report are preliminary and upon cuprous chloride helper review may be revised to meet current compliance requirements. ___ Ellen Leonard DO 09/11/2015 9:40:41 AM This report has been signed electronically. Number of Addenda: 0 Note Initiated On: 09/11/2015 9:20 AM [facility] ENDOSCOPY 09/11/2015 9:20 AM FUR PLUCKER Ellen Leonard DO GI PROCEDURE ORDERAB LES [facility] [place] [address] * LIPID PROFILE (05/08/2010 2:39 PM CDT) [...] PM CDT Narrative Resulting Agency Comment [facility] [address] [id number] Paulino Hickman DO LAB - CHEMISTRY SANGITA OLIVEROS Performing Organization Address City/[facility]/ZIP Co de Phone Number [facility] INSURANCE [...] if suspicious findings are present clinically. An [employer] Certified Facility Procedure Note [...] if suspicious findings are present clinically. An [employer] Certified Facility Paulino Hickman [...] ICD9 [facility] INSURANCE BILL Comment:V72.31 ; Routine management liaison ecological examination Performed by [facility] INSURANCE BILL Comment:Shana Blanca, Cyto technologist QC Reviewed by [facility] INSURANCE BILL Comment:Cheryl Cuellar Fisher Mussel (ASCP) Comment . [facility] INSURANCE BILL Note [...] CYTYC Thin Prep Vial Resulting Agency Comment [address] [id number] Helen Ramirez DO LAB - PATHOLOGY/CYTO LOGY ORDERABLES [facility] INSURANCE BILL from Last 3 Months or Most Recently Relevant to Health Maintenance Care Teams Sheetmetal Trades Worker Relationship Specialty [place] [address] [facility] [address] [place] [address] PCP - OBGYN 11/21/08 Nona Ayers MD [facility] [place] [phone] PCP - General Family Medicine 11/01/13 Tono Rosado MD [facility] [place] [phone] Rheumatology 01/26/15
--- OUTSIDE RECORDS SUMMARY | 2024-08-27 18:56 | XMS_ITS | Encounter Summary ---
Author Organization [facility] Address [address] [place] [address] Care Team Providers Care Qual Research Manager Name Role Phone Unavailable Primary Care Provider Unavailabl e Encounter Details Date Type Department Care Team (Latest Contact Info) Description 08/10/2007 Outpatient Historical [facility] Conversion, History Other Screening Mammogram Social History Tobacco Use Types Packs/Day Years Used Date Smoking Tobacco: Never Assessed Comments Unknown Sex and Gender Information Value Date Recorded Sex Assigned at Not on file Legal Sex Female 2:47 AM COMMODITIES REQUIREMENTS ANALYST Gender Identity Not on file Sexual Orientation Not on file documented as of this encounter Plan of Treatment Not on file documented as of this encounter Procedures Procedure Name Priority Date/Time Associated Diagnosis Comments MAMMO SCREENING BILAT Routine 08/10/2007 1:53 PM COMMODITIES REQUIREMENTS ANALYST documented in this encounter Results * MAMMO SCREENING BILAT (08/10/2007 1:53 PM COMMODITIES REQUIREMENTS ANALYST) Anatomical Region Laterality Modality Breast Bilateral Other 08/10/2007 1:53 PM COMMODITIES REQUIREMENTS ANALYST Narrative 08/19/2007 3:31 PM COMMODITIES REQUIREMENTS ANALYST [facility] [address] [place], [place] [address] Admit Date: 08/10/2007 VALDEZ FRANCOIS Sex: F Admit Prov: DOCTOR, NOT O Date: 1965 Primary Care Prov: PCP, UNKNOWN CMRN: [id number] [facility] SSN: [address] [place] [address] IMAGING SERVICES Ordering Prov: DOCTOR, NOT O Accession Number: [id number] Addendum Patient's previous mammogram from [facility] [...] screening exam. Previous mammogram was performed at [facility] in 2005. Findings: Bilateral filmscreen mammography [...] retraction. The left breast is unremarkable. Impression: [facility] Radiology will attempt to obtain the patient's previous mammograms from [facility] to determine stability in a masslike [...] DKT Procedure Note Cadence Groves - 08/19/2007 [id number] [place], [place] [address] Admit Date: 08/10/2007 VALDEZ FRANCOIS Sex: F Admit Prov: DOCTOR, NOT O Date: 1965 Primary Care Prov: PCP, UNKNOWN CMRN: [id number] Room: [facility] SSN: [id number] IMAGING SERVICES Ordering Prov: VASYL LAMAR Addendum Patient's previous mammogram from [facility] dated 09/11/2004 hasbeen made available for [...] screening exam. Previous mammogram was performed at [facility] [id number]. Findings: Bilateral filmscreen mammography was performed. Thebreast parenchyma is of moderate density and relatively symmetrical. In thefar lateral aspect of the right breast, posterior depth, on the CC view,a small masslike density is present with associated architecturaldistortion. This is not confirmed on the MLO view. There are no malignant type calcifications, lymphadenopathy, skin thickening or nippleretraction. The left breast is unremarkable. Impression: [facility] Radiology will attempt to obtain the patient'sprevious mammograms from [facility] to determine stability in a masslikedensity [...]
--- OUTSIDE RECORDS SUMMARY | 2024-08-27 18:56 | XMS_ITS | Encounter Summary ---
Author Organization [facility] Address [address] [place] [address] Care Team Providers Care Handmade Tile Artist Name Role Phone Paulino Hickman DO Primary Care Provider [phone] Helen Ramirez DO Unavailable Nona Ayers MD Primary Care Provider [phone] Tono Rosado MD Unavailable Encounter Details Date Type Department Care Team (Late st Contact Info) Description 10/11/2011 [facility]PT Tono Rosado MD [address] [place] [address] Social History Tobacco Use Types Packs/Day Years [...] on filedocumented in this encounter Care Teams Handmade Tile Artist Relationship Specialty Start [place] [address] [facility] [place] [address] PCP - General 08/10/08 10/31/13 [place] [address] [address] [id number] PCP - OBGYN 11/21/08 Nona Ayers MD [address] [place] [address] [address] [place] [address] PCP - General Family Medicine 11/01/13 Tono oRsado MD [address] [place] [address] [address] [place] [address] Rheumatology 01/26/15 documented as of this encounter
--- OUTSIDE RECORDS SUMMARY | 2024-08-27 18:56 | XMS_ITS | Encounter Summary ---
Author Organization [facility] Address [address] [place] [address] Care Team Providers Care Continuity Editor Name Role Phone Unavailable Primary Care Provider [...] on file Legal Sex Female 2:47 AM MEMBERSHIP SALES ADVISOR Gender Identity Not on file Sexual Orientation Not on file documented as of this encounter Plan of Treatment Not on file documented as of this encounter Visit Diagnoses Diagnosis Other screening mammogram documented in this encounter
--- OUTSIDE RECORDS SUMMARY | 2024-08-27 18:56 | XMS_ITS | Patient Health Summary ---
Author Organization [facility] [email or web address] Address [address] [place] [address] Care Team Providers Care Video Game Programmer Name Role Phone Helen Ramirez DO Unavailable Nona Ayers MD Primary Care Provider [phone] Tono Rosado MD Unavailable [phone] Note from [facility],non-owned Affiliates and Associated Physician Practices is amultiple site organization consisting of ambulatory clinics and hospital sitesin [place], [place], [place] and [place]. This disclosure is being madepursuant to the Care Everywhere program and may not contain all information available regarding this patient. Last updated 18.[facility] Allergies No known active allergies* Metformin(GI Discomfort),Inactive [...] Comments Blood Pressure 145/95 09/11/2015 10:00 AM CHIEF TECHNICAL OFFICER Pulse 77 09/11/2015 10:21 AM CHIEF TECHNICAL OFFICER Temperature 35.9 C (96.6 F) 09/11/2015 9:42 AM CHIEF TECHNICAL OFFICER Respiratory Rate 16 09/11/2015 10:21 AM CHIEF TECHNICAL OFFICER Oxygen Saturation 100% 09/11/2015 10:21 AM CHIEF TECHNICAL OFFICER Inhaled Oxygen Concentration - - Weight 92.1 kg (203 lb) 09/11/2015 9:03 AM CHIEF TECHNICAL OFFICER Height 165.1 cm (5' 5 ) 09/11/2015 9:03 AM CHIEF TECHNICAL OFFICER Body Mass Index 33.78 09/11/2015 9:03 AM CHIEF TECHNICAL OFFICER Procedures * PATHOLOGY/CYTOLOGY REPORT ORDER(Performed 09/13/2015) * [...] * PATHOLOGY/CYTOLOGY REPORT ORDER (09/13/2015 1:51 AM CHIEF TECHNICAL OFFICER) Narrative 09/13/2015 1:51 AM CHIEF TECHNICAL OFFICER Ordered by an unspecified provider. Scanned Document LAB - PATHOLOGY/CYTO LOGY ORDERABLES * GROSS + MICRO EXAM (STL) (09/11/2015 9:32 AM CHIEF TECHNICAL OFFICER) Case Report Surgical Pathology Report Case: [id number] Authorizing Provider: Willa Rincon DO Collected: 09/11/2015 09:32 AM Ordering Location: [facility] Received: 09/11/2015 10:53 AM Pathologist: Vaughn Barrett MD Specimen: Colon Ascending Biopsy 09/12/2015 3:42 PM CHIEF TECHNICAL OFFICER [facility] Final Diagnosis 1. Colon, ascending, biopsy: -- Chronic interstitial inflammation, mild, non-specific ALEXANDER/jesus 09/12/2015 3:42 PM CHIEF TECHNICAL OFFICER [facility] Gross Description Received in formalin in a container labeled Ricci Cagle, colon ascending biopsy. The container holds multiple fleming tissue fragments measuring from 0.1 cm up to 0.5 cm. Specimen is entirely submitted in a cassette labeled A1. DYT/arm 09/12/2015 3:42 PM CHIEF TECHNICAL OFFICER [facility] Microscopic Description Sections of the ascending colon biopsy show fragments of colonic mucosa with increased number of chronic inflammatory cells within the stroma. However, cryptitis, crypt abscesses, granulomas or malignancy are not seen. ALEXANDER/jesus 09/12/2015 3:42 PM CHIEF TECHNICAL OFFICER [facility] Pathology/Cytolo gy COLONIC BIOPSY SPECIMEN / Unknown 09/11/2015 9:32 AM CHIEF TECHNICAL OFFICER 09/11/2015 10:53 AM CHIEF TECHNICAL OFFICER Willa Rincon DO LAB - PATHOLOGY/CYTO LOGY ORDERABLES [facility] [address] [place] [address] * ENDOSCOPY, COLON, SCREENING (09/11/2015 9:20 AM CHIEF TECHNICAL OFFICER) Report Endoscopy POC _ Patient Name: Valdez [...] 1 week. Procedure Code(s): --- Professional --- 12341, Colonoscopy, flexible; with biopsy, single or multiple --- Technical --- 36045, Colonoscopy, flexible; with biopsy, single or multiple [...] or abscess without bleeding CPT copyright 2014 [employer]. All rights reserved. The codes documented in this report are preliminary and upon mosaic technician review may be revised to meet current compliance requirements. ___ Willa Rincon DO 09/11/2015 9:40:41 AM This report has been signed electronically. Number of Addenda: 0 Note Initiated On: 09/11/2015 9:20 AM [facility] 09/11/2015 9:20 AM CHIEF TECHNICAL OFFICER Willa Rincon DO GI PROCEDURE ORDERAB LES [facility] ROGELIO Gleason [id number] * RHEUMATOID FACTOR BLOOD QUANTITATIVE (01/26/2015 12:10 PM CDT) Only the most recent of3 resultswithin the time period is included. Rheumatoid Factor <10 <15 IU/mL [facility] INSURANCE BILL Blood specimen (specimen) BLOOD SPECIMEN / Unknown 01/26/2015 12:10 PM CDT 01/26/2015 6:07 PM CDT Narrative Resulting Agency Comment [facility] [address] [facility] [phone] Rosy Brisenogiudice FOREST MANAGEMENT TEACHER-[place] SEAMER LAB - CHEMISTRY ORDERABLES Performing Organization Address City/[facility]/ZIP Co de Phone Number [facility] INSURANCE BILL * (ABNORMAL) C-REACTIVE PROTEIN (01/26/2015 12:10 PM CDT) Only the most recent of4 resultswithin the time period is included. C-Reactive Protein 0.48(H) <0.30 mg/dL [facility] INSURANCE BILL Blood specimen (specimen) BLOOD SPECIMEN / Unknown 01/26/2015 12:10 PM CDT 01/26/2015 6:07 PM CDT Narrative Resulting Agency Comment [facility] [address] [phone] Rosy Duboseo Delgiudice FOREST MANAGEMENT TEACHER-[place] SE[employer]ER LAB - CHEMISTRY ORDERABLES [facility] INSURANCE BILL * GERMAN BLOOD SCREEN W/REFLEX TITER (01/26/2015 12:10 PM CDT) Only the most recent of3 resultswithin the time period is included. GERMAN Negative Negative [facility] INSURANCE BILL Blood specimen (specimen) BLOOD SPECIMEN / Unknown 01/26/2015 12:10 PM CDT 01/26/2015 6:07 PM CDT Narrative Resulting Agency Comment [facility] [address] [facility] [phone] Rosy Quicho Delgiudice FOREST MANAGEMENT TEACHER-[place] SEAMER LAB - CHEMISTRY ORDERABLES [facility] INSURANCE BILL * ALDOLASE (01/26/2015 12:10 PM CDT) Aldolase 5.4 3.3 - 10.3 U/L [facility] INSURANCE BILL Blood specimen (specimen) BLOOD SPECIMEN / Unknown 01/26/2015 12:10 PM CDT 01/26/2015 6:07 PM CDT Narrative Resulting Agency Comment [address] [phone] Rosy Quicho Delgiudice FOREST MANAGEMENT TEACHER-[place] SEAMER LAB - CHEMISTRY ORDERABLES [facility] INSURANCE BILL * CK BLOOD (01/26/2015 12:10 PM CDT) CK 71 35 - 232 U/L [facility] INSURANCE BILL Blood specimen (specimen) BLOOD SPECIMEN / Unknown 01/26/2015 12:10 PM CDT 01/26/2015 6:07 PM CDT Narrative Resulting Agency Comment [facility] [address] [address] [phone] Rosy Quicho Delgiudice FOREST MANAGEMENT TEACHER-[place] SEAMER LAB - CHEMISTRY ORDERABLES [facility] INSURANCE BILL * CYCLIC CITRUL PEPTIDE ANTIBODY IGG/IGA (CCP) (11/01/2013 3:30 PM CDT) [facility]CP Antibodies IgG/IgA 19 0 - 19 units [facility] INSURANCE BILL Comment: Negative <20 Weak positive 20 - 39 Moderate positive 40 - 59 Strong positive >59 BLOOD SPECIMEN / Unknown 11/01/2013 3:30 PM CDT 11/01/2013 10:36 PM CDT Narrative Resulting Agency Comment [facility] [address] [phone] Tono Rosado MD LAB - SEROLOGY OR DERABLES [facility] INSURANCE BILL * VITAMIN D 25-HYDROXY (11/01/2013 3:30 PM CDT) Only the most recent of3 resultswithin the time period is included. Vitamin D, 25 Hydroxy 30.8 30.0 - 100.0 ng/mL [facility] INSURANCE BILL Comment: Vitamin D deficiency has been defined by the [place] of Medicine and an Endocrine Society practice guideline as a level of serum 25-OH vitamin D less than 20 ng/mL (1,2). The Endocrine Society went on to further define vitamin D insufficiency as a level between 21 and 29 ng/mL (2). 1. IOM ([place] of [employer]). 2010. Dietary reference intakes for calcium and D. [place]: The National Academies Press. 2. Tom MF, Tracey [place], Brandee BOWLING, et al. Evaluation, treatment, and prevention of vitamin D deficiency: an Endocrine Society clinical practice guideline. JCEM. 2010; 96(7):1911-30. Blood specimen (specimen) BLOOD SPECIMEN / Unknown 11/01/2013 3:30 PM CDT 11/01/2013 10:36 PM CDT Narrative Resulting Agency Comment [facility] [address] [facility] [phone] Tono Rosado MD LAB - CHEMISTRY O RDERABLES [facility] INSURANCE BILL * SED RATE WESTERGREN (11/01/2013 3:30 PM CDT) Erythrocyte Sedimentation Rate Westergren 6 0 - 32 mm/hr [facility] INSURANCE BILL Blood specimen (specimen) BLOOD SPECIMEN / Unknown 11/01/2013 3:30 PM CDT 11/01/2013 10:36 PM CDT Narrative Resulting Agency Comment [facility] [address] [phone] Authorizing Provider Result Clary Rosado MD LAB [...] PM CDT Narrative Resulting Agency Comment [facility] [address] [phone] Authorizing Provider Result Clary Rosado MD LAB [...] PM CDT Narrative Resulting Agency Comment [facility] [place] [address] [facility] [phone] Tono Rosado MD LAB - CHEMISTRY O [...] time period is included. Color UA YELLOW [facility] Character UA CLOUDY [facility] Specific [place] UA 1.017 1.005 - 1.0300 [facility] pH UA 5.5 4.6 - 8.0 pH Units [facility] Leukocyte UA TRACE Negative /ul [facility] Nitrite UA NEGATIVE Negative [facility] Protein UA NEGATIVE Negative mg/dL [facility] Glucose UA NEGATIVE Normal mg/dL [facility] Ketone UA NEGATIVE Negative mg/dL [facility] Urobilinogen UA 0.2 Normal Tanner Units [facility] Bilirubin UA NEGATIVE Negative mg/dL [facility] Blood UA NEGATIVE Negative /ul [facility] WBC UA 2-5 <5 /HPF [facility] RBC UA 0-2 <5 /HPF [facility] Epithelial Cell UA 2-5 <5 /HPF [facility] Casts UA 0-2 <2 /LPF [facility] Bacteria UA NEGATIVE [facility] Urine specimen (specimen) URINE SPECIMEN OBTAINED BY CLEAN CATCH PROCEDURE / Unknown 10/22/2011 5:30 PM CDT 10/22/2011 5:45 PM CDT Curtis Gonzalez DO LAB - URINALYSIS O RDERABLES Performing Organization Address [facility] de Phone Number [facility] [address] [place] [address] * TROPONIN I (10/22/2011 4:23 PM CDT) Troponin I < 0.015 SEE BELOW ng/mL [facility] Comment: Normal <0.10 [place] 0.10-0.99 Positive >=1.00 Blood specimen (specimen) BLOOD SPECIMEN / Unknown 10/22/2011 4:23 PM CDT 10/22/2011 4:37 PM CDT Narrative [facility] - 10/22/2011 5:09 PM CDT Perform on patients greater than 35* Curtis Gonzalez DO LAB - CHEMISTRY OR DERABLES Performing Organization Address [facility] de Phone Number [facility] [address] [place] [address] * MYOGLOBIN BLOOD (10/22/2011 4:23 PM CDT) Myoglobin 35 <50.0 ng/mL [facility] Blood specimen (specimen) BLOOD SPECIMEN / Unknown 10/22/2011 4:23 PM CDT 10/22/2011 4:37 PM CDT Curtis Gonzalez DO LAB - CHEMISTRY OR DERABLES Performing Organization Address [facility] de Phone Number [facility] [address] [place] [address] * PTT (10/22/2011 4:23 PM CDT) Only the most recent of2 resultswithin the time period is included. PTT 25.7 24.0 - 32.0 seconds [facility] Blood specimen (specimen) BLOOD SPECIMEN / Unknown 10/22/2011 4:23 PM CDT 10/22/2011 4:37 PM CDT Curtis Moshercaro LAB - COAGULATION ORDERABLES Performing Organization Address [facility] de Phone Number [facility] [address] [place] [address] * PT-INR (10/22/2011 4:23 PM CDT) Only the most recent of2 resultswithin the time period is included. PT 10.0 9.4 - 11.2 seconds [facility] INR 0.9 SEE BELOW [facility] Comment: 0.9-1.1 Normal 2.0-3.0 Conventional 2.5-3.5 Intensive Blood specimen (specimen) BLOOD SPECIMEN / Unknown 10/22/2011 4:23 PM CDT 10/22/2011 4:37 PM CDT Curtis Valenzuela [facility] [place] LAB - COAGULATION ORDERABLES Performing Organization Address [facility] de Phone Number [facility] [address] [place] [address] * XR CHEST PA AND LATERAL (10/22/2011 [...] (Bezet) 429 ms [facility] Calculated P [place] 57 degrees [facility] Calculated R [place] 25 degrees [facility] Calculated T [place] 9 degrees [facility] Interpretation EKG Normal sinus rhythm Possible Left atrial enlargement Borderline ECG No previous ECGs available Confirmed by RJ ANAYA, NICOLÁS ([id number]) on 10/23/2011 9:29:15 AM [facility] 10/22/2011 1:19 PM CDT 10/23/2011 9:29 AM CDT Narrative Transcriptions Document, Scanned - 10/22/2011 3:27 PM CDT Document, Scanned - 10/23/2011 9:29 AM CDT Curtis Gonzalez DO ECG ORDERABLES Performing Organization Address [facility] Co de Phone Number [facility] * TSH (10/11/2011 1:57 PM CDT) Only the most recent of5 resultswithin the time period is included. TSH 0.848 0.450 - 4.500 uIU/mL [facility] INSURANCE BILL Blood specimen (specimen) BLOOD SPECIMEN / Unknown 10/11/2011 1:57 PM CDT 10/11/2011 9:40 PM CDT Narrative Resulting Agency Comment [facility] [address] [phone] Tono Rosado MD LAB - CHEMISTRY O [...] CT ORDERABLES * C-PEPTIDE (07/30/2010 3:35 PM CHIEF TECHNICAL OFFICER) Only the most recent of4 resultswithin the time period is included. C-Peptide 2.9 1.1 - 4.4 ng/mL [facility] INSURANCE BILL Comment:C-Peptide reference interval is for fasting patients. BLOOD SPECIMEN / Unknown 07/30/2010 3:35 PM CHIEF TECHNICAL OFFICER 07/30/2010 9:49 PM CHIEF TECHNICAL OFFICER Narrative Resulting Agency Comment [facility] [place] [phone] Raheem Marcano DO LAB - CHEMISTRY SANGITA OLIVEROS Performing Organization Address City/[facility] Co de Phone Number [facility] INSURANCE BILL * HEMOGLOBIN A1C (07/30/2010 3:35 PM CHIEF TECHNICAL OFFICER) Only the most recent of4 resultswithin the time period is included. Hemoglobin A1c 5.5 4.8 - 5.6 % [facility] INSURANCE BILL Comment: Increased risk for diabetes: 5.7 - 6.4 Diabetes: >6.4 Glycemic control for adults with diabetes: <7.0 BLOOD SPECIMEN / Unknown 07/30/2010 3:35 PM CHIEF TECHNICAL OFFICER 07/30/2010 9:49 PM CHIEF TECHNICAL OFFICER Narrative Resulting Agency Comment [facility] [phone] Raheem Marcano DO LAB - CHEMISTRY SANGITA [...] Mazin Fair MD - 05/14/2010 1:55 PM [facility] CHEMICAL STRESS TEST PATIENT: VALDEZ CAGLE MR#: [id number] DATE OF SERVICE: 05/14/2010 : 1965 ROOM: [...] is pending. MAZIN FAIR MD KQ/PM #: [id number] CC: RAHEEM MARCANO DO CHEMICAL STRESS TEST [...] The axis is +30 degrees, rateis 71. UT interval 0.18, QRS 0.05, QT 0.40. P, QRS, and T waves are within normal limits. There are nonspecific T changes. Recommend stress test. Care provided at [facility], [address] [place] [address]. Raheem Marcano D.O. Electronically Signed 05/09/2010 11:06:19 CDT DKB/MedQ #:[id number] Raheem Marcano DO CARDIAC SERVICES ORD ERABLES * T4 FREE (05/08/2010 2:39 PM CDT) T4 Free 1.33 0.82 - 1.77 ng/dL [facility] INSURANCE BILL BLOOD SPECIMEN / Unknown 05/08/2010 2:39 PM CDT 05/08/2010 9:23 PM CDT Narrative Resulting Agency Comment [facility] [phone] Raheem Marcano DO LAB - CHEMISTRY ORDE [facility] Organization Address City/State/ZIP Co de Phone Number [...] PM CDT Narrative Resulting Agency Comment [facility] [place] [address] [facility] [phone] Raehem Marcano DO LAB - CHEMISTRY SANGITA ANNIACAROLINA [...] if suspicious findings are present clinically. An [employer] Certified Facility Procedure Note [...] if suspicious findings are present clinically. An [employer] Certified Facility Raheem Marcano [...] Narrative Resulting Agency Comment [facility] [place] [id number] [facility] [phone] Helen Ramirez DO LAB - MICROBIOLOGY O [...] pH units Blood UA neg Negative Specific [place] UA POCT 1.020 1.002 - 1.030 Ketone [...] if suspicious findings are present clinically. An [employer] Certified Facility Procedure Note [...] if suspicious findings are present clinically. An [employer] Certified Facility Raheem Marcano [...] 9:28 PM CDT Narrative Resulting Agency Comment [facility] [address] [facility] [phone] Helen Ramirez DO LAB - MICROBIOLOGY O RDERABLES [facility] INSURANCE BILL * PAP IG CT-NG RFLX HPV ASCU (PO REF LAB) (10/12/2008 9:56 AM CDT) [facility] INSURANCE BILL Diagnosis [facility] INSURANCE BILL Comment: NEGATIVE FOR INTRAEPITHELIAL LESION AND MALIGNANCY. FUNGAL ORGANISMS MORPHOLOGICALLY CONSISTENT WITH FAINA SPECIES ARE PRESENT. CELLULAR CHANGES ASSOCIATED WITH INFLAMMATION ARE PRESENT. Specimen Adequacy [facility] INSURANCE BILL Comment: Satisfactory for evaluation. No endocervical cells are present. This is consistent with a history of hysterectomy. [facility] INSURANCE BILL Clinician Provided ICD9 [facility] INSURANCE BILL Comment:V72.31 ; Routine nurse gynecology ecological examination Performed by [facility] INSURANCE BILL Comment:Shana Blanca, Cyto technologist QC Reviewed by [facility] INSURANCE BILL Comment:Cheryl Cuellar Quality Control Coordinator (ASCP) Comment . [facility] INSURANCE BILL Note [...] use of an image guided system. Reflex [facility] INSURANCE BILL Comment: The HPV DNA reflex [...] Thin Prep Vial Resulting Agency Comment [facility] [place] [address] [facility] [address] [phone] Helen Ramirez DO LAB - PATHOLOGY/CYTO LOGY ORDERABLES [facility] INSURANCE BILL * (ABNORMAL) GLUCOSE - POINT OF CARE (10/07/2008 11:23 AM CDT) Only the most recent of8 resultswithin the time period is included. Pathologist [facility] Glucose WB/POC 121(H) 75 - 110 mg/dl [facility] BLOOD SPECIMEN / Unknown 10/07/2008 11:23 AM CDT Antony Carias MD LAB - POINT OF CARE ORDERABLES [facility] [address] [place] [address] * (ABNORMAL) BASIC METABOLIC PANEL (CALCIUM TOTAL) (10/06/2008 2:54 AM CDT) Pathologist [facility] BUN 12 7.0 - 17.0 mg/dl [facility] Sodium 138 137 - 145 mEq/L [facility] Potassium 3.3(L) 3.6 - 5.0 mEq/L [facility] Chloride 107 98.0 - 107.0 mEq/L [facility] CO2 22 22.0 - 30.0 mEq/L [facility] Anion Gap 8.4 [facility] Glucose 89 75 - 110 mg/dl [facility] Creatinine 1.0 0.7 - 1.2 mg/dl [facility] Calcium 8.4 8.4 - 10.2 mg/dl [facility] eGFR by MDRD 77.5 ml/min/1.73 m2 [facility] BLOOD SPECIMEN / Unknown 10/06/2008 2:54 AM CDT Antony Carias MD LAB - CHEMISTRY SANGITA OLIVEROS Performing Organization Address [facility] de Phone Number [address] [address] * MAGNESIUM BLOOD (10/06/2008 2:54 AM CDT) Magnesium 2.0 1.6 - 2.3 mg/dl [facility] BLOOD SPECIMEN / Unknown 10/06/2008 2:54 AM CDT Antony Carias MD LAB - CHEMISTRY SANGITA OLIVEROS Performing Organization Address [facility] de Phone Number [address] [address] * TYPE + SCREEN PANEL (10/05/2008 12:27 PM CDT) ABO Rh O Pos [facility] Antibody Screen Neg [facility] BLOOD SPECIMEN / Unknown 10/05/2008 12:27 PM CDT Stephen Bal MD LAB - BLOOD BANK ORD ERABLES Performing Organization Address [facility] de Phone Number [address] [address] * GROSS + MICRO EXAM (09/27/2008 12:00 AM CDT) Surgeon DR. WILLA RINCON [facility] Grossed By NADJA JORGE [facility] Gross Report [facility] Comment: COPY TO DR. RAHEEM MARCANO INDICATION [...] AND SUBMITTED IN B. LW/KM Microscopic Examination [facility] Comment: MICROSCOPIC 1. THE CECAL POLYP IS HEAVILY ELECTRODESICCATED OR CRUSHED BUT SHOWS FEATURES SUGGESTIVE OF HYPERPLASTIC POLYP. 2. THE ASCENDING COLON BIOPSY SHOWS COLONIC MUCOSA WITH LYMPHOID NODULES AND MILD INTERSTITIAL EDEMA. THERE IS NO SIGNIFICANT INFLAMMATION. THE SUBEPITHELIAL COLLAGEN DOES NOT APPEAR THICKENED. AB/KM Diagnosis [facility] Comment: DIAGNOSIS 1. CECAL POLYP, POLYPECTOMY -- SUGGESTIVE OF HYPERPLASTIC POLYP 2. ASCENDING COLON BIOPSIES -- NO PATHOLOGIC DIAGNOSIS AB/KM Released by EDGARD SCHWARTZ M.D. [facility] CPT Code 95609 X2 [facility] POLYP OF COLON / Unknown 09/27/2008 Willa Rincon DO LAB - PATHOLOGY/CYTO LOGY ORDERABLES [facility] [address] [place] [address] * (ABNORMAL) GENERAL HEALTH PANEL (08/11/2008 4:23 PM CHIEF TECHNICAL OFFICER) Chemistries [facility] INSURANCE BILL Glucose 124(H) 65 [...] BLOOD SPECIMEN / Unknown 08/11/2008 4:23 PM CHIEF TECHNICAL OFFICER 08/11/2008 9:27 PM CHIEF TECHNICAL OFFICER Narrative [facility] INSURANCE BILL - 08/16/2008 4:18 PM CHIEF TECHNICAL OFFICER Additional Result Information HEMATOLOGY COMMENTS: BLOOD,URINE ([facility]): RESULT NOT AVAILABLE Resulting Agency Comment [facility] [address] [facility] [phone] Raheem Marcano DO LAB - CHEMISTRY ORDSahara ANNIACAROLINA Performing Organization Address [facility]/ZIP Co de Phone Number [facility] INSURANCE BILL * LIPID PROFILE W TCHOL/HDL (PO REF LAB) (08/11/2008 4:23 PM CHIEF TECHNICAL OFFICER) Cholesterol 124 100 - 199 mg/dL [facility] [...] BLOOD SPECIMEN / Unknown 08/11/2008 4:23 PM CHIEF TECHNICAL OFFICER 08/11/2008 9:27 PM CHIEF TECHNICAL OFFICER Narrative Resulting Agency Comment [facility] [address] [facility] [phone] Raheem Marcano DO LAB - CHEMISTRY ORDE DOMO [facility] INSURANCE BILL Care Teams Video Game Programmer Relationship Specialty Start Date [place] Helen [place] [id number] [place] [address] PCP - OBGYN 11/21/08 Nona Ayers MD [address] [place] [address] [address] [place] [phone] PCP - General Family Medicine 11/01/13 Tono Rosado MD [address] [place] [address] [address] [place] [phone] Rheumatology 01/26/15
--- OUTSIDE RECORDS SUMMARY | 2024-08-27 18:56 | XMS_ITS | Clinical Summary ---
Author Organization [facility] Address [address] Attn: Epic Prelude ADT ROGELIO GEORGE [address] Care Team Providers Care Permaculture Contractor Name Role Phone Unavailable Primary Care Provider Unavailabl e Social History Tobacco Use Types Packs/Day Years Used Date Smoking Tobacco: Never Assessed Comments Unknown Sex and Gender Information Value Date Recorded Sex Assigned at Not on file Legal Sex Female 2:47 AM TUBE CUTTER Gender Identity Not on file Sexual [...] OR WO CAD Routine 08/23/2008 1:47 PM TUBE CUTTER from Last 3 Months or Most Recently Relevant to Health Maintenance Results * MAMMO DIGITAL DIAG BILAT (08/23/2008 1:47 PM TUBE CUTTER) Anatomical Region Laterality Modality Breast Bilateral Other 08/23/2008 1:47 PM TUBE CUTTER Narrative 08/24/2008 10:19 AM TUBE CUTTER [place] [address] [place], [place] [address] Admit Date: 08/23/2008 VALDEZ FRANCOIS Sex: F Admit Prov: KRYS RAHEEM Sharp Date: 1965 Primary Care Prov: RAHEEM HICKMAN CMRN: [id number] Room: [facility] SSN: [id number] IMAGING SERVICES Ordering Prov: KRYS RAHEEM Sharp Accession Number: [id number] Interpretation BILATERAL FULL FIELD DIGITAL DIAGNOSTIC MAMMOGRAMS WITH COMPUTER AIDED DIAGNOSIS AND RIGHT BREAST ULTRASOUND Date: 08/23/2008 History: Intermittent bilateral breast tenderness. Comparison: July 2007 [place] [facility] [place] composition: Scattered fibroglandular densities. Findings: A [...] AMK Procedure Note Leonel Michelle - 08/24/2008 [place] [id number] [place], [place] [address] Admit Date: 08/23/2008 TSERING VALDEZ Viki Sex: F Admit Prov: RAHEEM HICKMAN Date: 1965 Primary Care Prov: RAHEEM HICKMAN CMRN: [id number] Room: [facility] SSN: [id number] IMAGING SERVICES Ordering Prov: RAHEEM HICKMAN Interpretation BILATERAL FULL FIELD DIGITAL DIAGNOSTIC MAMMOGRAMS WITH COMPUTERAIDED DIAGNOSIS AND RIGHT BREAST ULTRASOUND Date: 08/23/2008 History: Intermittent bilateral breast tenderness. Comparison: July 2007 examination from [facility] Breast composition: Scattered fibroglandular densities. Findings: A [...]
--- OUTSIDE RECORDS SUMMARY | 2024-08-27 18:56 | XMS_ITS | Encounter Summary ---
Author Organization [facility] Address [address] [place] [address] Care Team Providers Care Preschool Aide Name Role Phone Unavailable Primary Care Provider Unavailabl e Encounter Details Date Type Department Care Team (Latest Contact Info) Description 08/03/2007 Outpatient Historical [facility] (Excluded Provider) Froy Victoria MD NO ADDRESS ON FILE Unspecified Symptom Associated with Female Genital Organs Social History Tobacco Use Types Packs/Day Years Used Date Smoking Tobacco: Never Assessed Comments Unknown Sex and Gender Information Value Date Recorded Sex Assigned at Not on file Legal Sex Female 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
--- OUTSIDE RECORDS SUMMARY | 2024-08-27 18:56 | XMS_ITS | Encounter Summary ---
Author Organization [facility] Address 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
--- OUTSIDE RECORDS SUMMARY | 2024-08-27 18:56 | XMS_ITS | CONTINUITY OF CARE DOCUMENT ---
Author Name asif gold Address Unknown Organization [facility] Address [address] [place] [address] Phone [phone] Care Team Providers Care Human Resource Analyst Name Role Phone Tim ANAYA, Ivanna Unavailable JAMES LIZAMA MD Unavailable [phone] SELENE GEE MD Unavailable PROBLEMS Condition Status [...] active Ivanna ortega MD Thyroid nodule active Ivanna Dumont MD Chest pain--normal stress echo 11/2020 active Ivanna Dumont MD Rheumatoid arthritis (RA) active Ivanna ortega MD Shortness of breath active Ivanna Dumont MD ENCOUNTERS Date Type Provider Location Encounter Diag nosis - In-person encounter Office Visit Ivanna Dumont MD [facility] Chest pain--normal stress echo 11/2020 - In-person encounter Office Visit Ivanna Dumont MD [facility] Rheumatoid arthritis (RA)Shortness of breath VITAL [...] revi ewed - no changes required Yousif Wnin FAMILY HISTORY Family Member Condition Full Brother Family History of Hy pertension: Father Family History of Hy pertension: Mother Family History of Hy pertension: INSURANCE PROVIDERS Payer name Policy type / Coverage type Independence red green party ID AARP MEDICARE ADVANTAGE ([facility] COMPLETE PPO) Other [id number] ADVANCE DIRECTIVES Name Date DISCUSSED - NO DECISION MADE TREATMENT PLAN Date Name Performer [id number],S, Yousif Ahmedza i [id number],S, Yousif Ahmedza i [id number],S, Yousif Ahmedza i [id number],S, Yousif Ahmedza i [id number],S, Yousfi Ahmedza i [id number],S, Yousif Ahmedza i Cardiology Yousif Ahmedzai Cardiology Yousif Ahmedzai Cardiology Yousif Ahmedzai Cardiology Yousif Ahmedzai Cardiology Yousif Ahmedzai Cardiology Yousif Ahmedzai Date Name CT, Coronary Calcium Score HISTORY OF PROCEDURES Procedure Date Procedure Name Provider Procedure Notes S tatus CT- Coronary CA score Ivanna Dumont MD completed EKG Ivanna Dumont MD completed
--- OUTSIDE RECORDS SUMMARY | 2024-08-27 18:56 | XMS_ITS | Clinical Summary ---
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
[2024-08-27 21:39] VITALS: BP 137/82; PULSE 87; RESP 18; TEMP 36.6; O2SAT 100
== END 2024-08-27 21:41 | disposition home or self-care (01) ==
PROVIDERS: Physician Assistant; Emergency Provider Student in an Organized Health Care Education/Training Program; PCP Emergency Medicine
DX: J40 Bronchitis, not specified as acute or chronic (principal); J06.9 Acute upper respiratory infection, unspecified; I10 Essential (primary) hypertension; E11.9 Type 2 diabetes mellitus without complications; Z20.822 Contact with and (suspected) exposure to COVID-19
CPT/HCPCS: 36415; 71046; 80053; 83690; 83880; 84484; 85025; 85610; 85730; 87637; 93005; 99284

== ENCOUNTER 2024-10-28 09:34 | Emergency (ER) | payer MEDICARE, SELFPAY ==
--- NOTE | 2024-10-28 09:38 | ED.DIZZY ---
HPI - Dizziness General Chief Complaint: Dizziness Stated Complaint: DIZZY Time Seen by Provider: 10/28/24 09:48 Source: patient, RN notes reviewed and old records reviewed Mode of arrival: ambulatory Limitations: no limitations History of Present Illness HPI Narrative: 59-year-old female presents to the [facility] with complaints of dizziness. Patient reports she has had intermittent issues for the last 3 weeks. Has a history of diabetes, hypertension, TIA. States this morning she went to get up this morning the room was spinning she fell, denies any your head. Denies neck pain. States that she started with some chest pain, diaphoresis, shortness of breath and nausea. Severity: moderate Exacerbating factors: movement/ambulation, change in body position and standing Associated symptoms: nausea and diaphoresis Related Data Home Medications ?Medication ?Instructions ?Recorded ?Confirmed ?Last Taken ?Type duloxetine 20 mg capsule,delayed 60 mg PO DAILY 08/22/23 10/28/24 03/21/24 09:00 History release sprinkle empagliflozin 25 mg tablet 25 mg PO DAILY 08/22/23 10/28/24 03/21/24 09:00 History (Jardiance) losartan 50 mg-hydrochlorothiazide 1 tablet PO DAILY 08/22/23 10/28/24 03/21/24 09:00 History 12.5 mg tablet tirzepatide 2.5 mg/0.5 mL 2.5 mg subcut WEEKLY 09/18/23 10/28/24 03/15/24 09:00 History subcutaneous pen injector (Mounjaro) pregabalin 150 mg capsule 150 mg PO BID 03/21/24 10/28/24 03/04/24 History Allergies Allergy/AdvReac Type Severity Reaction Status Date / Time Fish Containing Products Allergy Anaphylaxis Verified 10/28/24 09:48 metformin Allergy Nausea and Verified 10/28/24 09:48 Vomiting shrimp Allergy Anaphylaxis Verified 10/28/24 09:48 Review of Systems Review of Systems: All systems reviewed & are unremarkable except as noted in HPI and below Constitutional: Constitutional: Reports no additional constitutional complaints Eyes: Eyes: Reports no additional eye complaints ENT: Reports system reviewed and no additional complaints, except as documented Cardiovascular: Cardiovascular: Reports as per HPI, Reports chest pain, Reports diaphoresis, Reports lightheadedness and Reports dyspnea Respiratory: Respiratory: Reports as per HPI, Denies chest congestion, Denies cough and Reports dyspnea Gastrointestinal: Gastrointestinal: Reports as per HPI and Reports nausea Musculoskeletal: Musculoskeletal: Reports no additional musculoskeletal complaints Integumentary/Breasts: Skin/Breast: Reports system reviewed and no additional complaints, except as docu Neurologic: Reports as per HPI, Reports dizziness, Denies focal weakness, Denies numbness, Denies paresthesias and Denies tremor(s) [facility] Past Medical History Medical History Hypertension Type 2 diabetes mellitus Stroke Brain CT in January 2023 showed no evidence of prior infarct. Fibromyalgia Surgical History Surgical History History of tubal ligation History of umbilical hernia repair Robotic laparoscopic repair 3 cm umbilical hernia with mesh 09/04/23 JESUS History of cholecystectomy Open cholecystectomy Family History Family History Other Cerebrovascular accident Diabetes mellitus Heart disease Hypertension Social History Social History Social History: Surrogate medical decision maker: Jagrutira Powers, sibling. Code status: Full code. Smoking status: Never smoker Alcohol intake: current Substance use: never Substance use type: does not use Do You Feel Safe in your Home?: Yes Lack of Transportation: No Lack of Food: Never True Current Housing: I Have Housing Concerned About Future Housing: YES Difficulty Paying Gas/Electric Bills: No Difficulty Paying for Meds: No Currently Unemployed: No Education: High School Diploma/GED Difficulty w/ Childcare or Family Care: No Living arrangements: with family Occupation/Education: other Additional occupation/education comments: On disability. Spiritual care concerns: No Comments At the time of my signature, I reviewed and agree with the nursing past medical, surgical, social, and family history. There is no relevant family history pertinent to the patient complaint. Exam Const: General: cooperative, no acute distress, well developed, alert, tired appearing, uncomfortable and well nourished Nutritional Appearance: well nourished Orientation/consciousness: patient oriented x3 Limitations: no limitations HENMT: Head: normal to inspection Ears: hearing grossly normal bilaterally and external ears normal Mouth: Yes Normal oral and palatal mucosa present, Yes tongue normal and Yes moist mucous membranes Eyes: General: appearance normal, both eyes and all related structures Alignment and Position: alignment normal Neck: Neck: normal visual inspection, full ROM, no lymphadenopathy and no meningeal signs Chest: Chest palpation & inspection: normal inspection of the chest Resp: Effort & Inspection: normal respiratory effort and able to speak in complete sentences Auscultation: clear to auscultation bilaterally, no crackles, no rales, no rhonchi and no wheezes Cardio: Rate: regular rate Back/Spine/Pelvis: Back: No back tenderness Skin: General skin exam: normal color and no rashes or lesions noted Neuro: General: patient oriented x3, No gait normal, moves all extremities, no meningeal signs and no focal motor deficits Cranial nerves: Yes Equal, round and reactive pupils present, Yes Nystagmus not present, Yes Normal facial strength present, Yes facial symmetry and Yes Midline tongue present Cognition (Neuro): normal cognition Speech: normal speech Gait exam (Neuro): Other gait observations present (slow, unsteady) Motor exam (neuro): Pronator motor function not present Extrem: General: normal to inspection, full ROM and capillary refill normal Psych: Appearance: grossly normal and well kempt Mental Status: mental status grossly normal Speech and movement: Normal speech and movement present and Clear speech present Affect: normal affect Attitude: cooperative Course Course Emergency Course: 1010 entered room, updated patient on traand finding out ETA of daughter. It was noted patient was having trouble finding words, but did answer questions. Tremors noted to the right hand. Evaluation, patient unable to raise left right leg. 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 Patient able to answer yes or no questions but unable to find words. At this time EMS was called. IV placed by RN. Blood pressure checked, patient now hypertensive 200s/100. Patient placed on monitor. ER updated on code stroke EMS arrive patient is now nonverbal, facial droop noted. Blood pressure still elevated Level of Care: Express Care Visit Vital Signs Vital signs: Vital Signs Temperature 98.1 F 10/28/24 09:44 Pulse Rate 83 10/28/24 09:44 Respiratory Rate 16 10/28/24 09:44 Blood Pressure 168/92 H 10/28/24 09:44 Pulse Oximetry 100 10/28/24 09:44 Temperature 98.1 F 10/28/24 09:44 Pulse Rate 100 10/28/24 10:37 Respiratory Rate 16 10/28/24 09:44 Blood Pressure 227/107 H 10/28/24 10:18 Pulse Oximetry 100 10/28/24 09:44 Reviewed Transfer Transfered to: [facility]: [facility] Transfer rationale: Patient with dizziness, chest pain, diaphoretic, shortness of breath. Sending for higher level of care for further evaluation Accepting physician: Spoke with Teresa Joyner MDM - Dizziness MDM Narrative Medical decision making narrative: patient with concerning symptoms of dizziness, made her fall, chest pain, diaphoresis, nausea, sending for higher level of care Transfer instructions reviewed with patient to go directly to the ER, EMS was offered, patient 1st declined. All questions have been answered, and the patient deny any further questions with discharge and discharge plan. Some parts of this dictation were generated by voice recognition software and may contain typographical and/or grammatical inaccuracies. Differential Diagnosis Differential diagnosis: Likely benign paroxysmal positional vertigo, orthostatic hypotension and cerebrovascular accident Lab Data Labs: Lab Results 10/28/24 Range/Units 09:51 POC Capillary Glucose 166 H (65-105) mg/dl ECG Data EKG #1: Attestation: I personally reviewed and interpreted this ECG as follows: ECG completion date: 10/28/24 ECG completion time: 09:53 Prior ECG tracings: available for review Interpretation: Sinus rhythm, low QRS voltage, ventricular rate 80, HI interval 168, QRS duration 77 Critical Care Time Critical Care Time Critical Care Time: No Discharge Plan Discharge Clinical Impression: Dizziness, Acute right-sided muscle weakness Patient Disposition: Acute Care Hospital Condition: Serious Patient Language: Israeli Prescriptions: No Action Mounjaro 2.5 mg/0.5 mL pen injector 2.5 mg subcut WEEKLY Rx Instructions: on Friday pregabalin 150 mg Capsule 150 mg PO BID losartan-hydrochlorothiazide 50-12.5 mg tablet 1 tablet PO DAILY Jardiance 25 mg tablet 25 mg PO DAILY duloxetine 20 mg Capsule, Delayed Rel Sprinkle 60 mg PO DAILY Follow-up/Referrals: Viraj Constantino MD [Primary Care Provider] -
[2024-10-28 09:44] VITALS: BP 168/92; PULSE 83; RESP 16; TEMP 36.7; O2SAT 100
--- NOTE | 2024-10-28 09:45 | ECG_ITS ---
Test Date: 2024-10-28 09:53:26 Measurements Intervals [place] Rate: 80 P: 41 CT: 168 QRS: 19 QRSD: 77 T: -13 QT: 354 QTc: 408 Interpretive Statements SINUS RHYTHM LOW QRS VOLTAGE IN PRECORDIAL LEADS CANNOT R/O SEPTAL INFARCT, AGE INDETERMINATE CONSIDER INFERIOR INFARCT, AGE INDETERMINATE BORDERLINE T WAVE ABNORMALITY- ANTEROLATERAL LEADS BASELINE ARTIFACT- II, III, AVR, AVL, AVF, V4-V5 ABNORMAL ECG Compared to ECG 08/27/2024 18:03:57 No significant changes Electronically Signed On 10-28-2024 09:59:57 CDT by Bernnan Daigle D.O.
[2024-10-28 10:01] VITALS: BP 168/84; PULSE 82
[2024-10-28 10:02] VITALS: BP 162/81; PULSE 80
[2024-10-28 10:03] VITALS: BP 165/81; PULSE 83
[2024-10-28 10:05] LABS: Glucose Point of Care 166 mg/dl (65-105)
[2024-10-28 10:18] VITALS: BP 227/107; PULSE 92
[2024-10-28 10:37] VITALS: PULSE 100
--- NOTE | 2024-10-28 10:41 | PC.NURSE ---
1010 While giving report to accepting facility, provider entered room and patient's condition had changed. Upon assessment, patient has weakness right arm and right leg-weak handgrasp right and weak right foot push; patient initially speaking clearing but said I want to say something but can't think of it. 1014 patient has right sided facial droop at this time, not speaking clearly at this time. Awaiting EMS at this time. 1019 EMS here and transported via stretcher via EMS to [facility].
--- NOTE | 2024-10-28 10:47 | PC.NURSE ---
1019 Left the facility with EMS; patient's belongings were place in patient belongings bag, phone to EMS personnel.
== END 2024-10-28 10:18 | disposition short-term general hospital (02) ==
LOC: EXPGOSH 09:36
PROVIDERS: Emergency Provider Nurse Practitioner; PCP Emergency Medicine
DX: R42 Dizziness and giddiness (principal); M62.81 Muscle weakness (generalized); R94.31 Abnormal electrocardiogram [ECG] [EKG]; E11.9 Type 2 diabetes mellitus without complications; I10 Essential (primary) hypertension; M79.7 Fibromyalgia; Z86.73 Personal history of transient ischemic attack (TIA), and cerebral infarction without residual deficits
CPT/HCPCS: 82948; 93005; 93010; 99215; G0463

== ENCOUNTER 2025-07-06 13:58 | Outpatient (CLI) | payer MEDICARE, SELFPAY ==
--- NOTE | ~2025-07-06 | MR_ITS ---
EXAM/PROCEDURE: MR brain/brain stem wo/w con HISTORY: VERTIGO, DIZZINESS COMPARISON: None available. TECHNIQUE: Pre and postcontrast enhanced brain MRI FINDINGS: No acute ischemic event or restricted diffusion. No mass, mass effect or bleed. Whaley-white signal pattern is preserved. Hippocampal regions are symmetric and appear normal. Visualized portions of the vestibulocochlear nerves and IACs appear normal. Brainstem and cerebellum appears normal. Minimal scattered T2 weighted hyperintense white matter foci in the cerebral hemispheres with no associated restricted diffusion or enhancement. Vascular flow voids patent at the skull base. On postcontrast series, no abnormal enhancing lesions or foci identified. IMPRESSION: 1. Normal IACs. 2. Minimal chronic microvascular ischemic appearing white matter changes but otherwise negative pre and postcontrast enhanced brain MRI. Reviewed, dictated and finalized at location A. EILLANCE DIRECTOR IMPRESSION: 1. Normal IACs. 2. Minimal chronic microvascular ischemic appearing white matter changes but ot herwise negative pre and postcontrast enhanced brain MRI.
--- NOTE | ~2025-07-06 | XR_ITS ---
XR lumbar spine 2-3V Indication: LUMBAGO WITH SCIATICA, RIGHT SIDE Comparison: None Findings: Mild levoconvex scoliosis. No fracture or subluxation. Moderate loss of disc height at L5-S1. Soft tissues unremarkable Impression: No acute abnormality. Reviewed, dictated and finalized at location P. M FRAME OPERATOR Impression: No acute abnormality.
== END 2025-07-06 13:59 | disposition home or self-care (01) ==
LOC: MICIMG 13:59
PROVIDERS: PCP Emergency Medicine; Visit Provider Emergency Medicine
DX: R42 Dizziness and giddiness (principal); M54.41 Lumbago with sciatica, right side
CPT/HCPCS: 70553; 72100; A9577